=== PATIENT | female | born 2005 | race Caucasian/White ===

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

== ENCOUNTER 2023-06-18 13:50 | Emergency (ER) | payer OTHER, BC, SELFPAY ==
[2023-06-18 13:51] VITALS: BP 121/73; PULSE 86; RESP 16; TEMP 36.2; O2SAT 99; BMI 26.2
--- NOTE | 2023-06-18 14:12 | EDS_ITS ---
HPI <FANTA Murillo - Last Filed: 06/18/23 15:08> History of Present Illness Chief Complaint: Sore Throat Narrative Narrative: 18-year-old female woke up with a feeling that her tonsils were swollen. She does not have sore throat, fever or congestion. She was seen at urgent care and had a negative strep test. While in their waiting room she felt lightheaded and clammy like she was going to pass out so they recommended she come to the ED. She now feels back to normal. She states she has been very stressed and anxious due to a break-up recently and has not been eating or drinking much. Mom states she has a long history of anxiety and intermittent chest pains for years. PFSH <FANTA Murillo - Last Filed: 06/18/23 15:08> [facility] Medical History (Updated 06/18/23 @ 15:13 by Abby Avila RN) Anxiety Home Medications drospirenone 3 mg-ethinyl estradiol 0.03 mg tablet 1 tab PO DAILY 08/14/20 [History Last Taken Unknown] spironolactone 50 mg tablet 50 mg PO DAILY 08/14/20 [History Last Taken Unknown] Allergy/AdvReac Type Severity Reaction Status Date / Time No Known Allergies Allergy Verified 06/18/23 13:51 Social History Smoking Status: Never smoker ROS <FANTA Murillo - Last Filed: 06/18/23 15:08> ROS ED ROS Narrative Constitutional: Negative for fever, chills, malaise. ENT: Negative for ear pain, rhinorrhea. CVS: Negative for palpitations, syncope. Respiratory: Negative for shortness of breath, cough. GI: Negative for nausea, vomiting. Neuro: Negative for headache. EXAM <FANTA Murillo - Last Filed: 06/18/23 15:08> Physical Exam Narrative Exam Narrative: CONST: Patient sitting in no acute distress. EYES: Normal inspection. ENT: Symmetrically enlarged tonsils with no exudate and midline uvula, moist mucous membranes. No trismus or tongue elevation, sublingual space is soft, airway patent. Nares clear, normal TMs bilaterally. NECK: Normal inspection. Trachea midline, no lymphadenopathy or masses, no meningismus. RESP: No respiratory distress, CTAB. CVS: Regular rate and rhythm, no murmur, no gallop. SKIN: Color normal, no rash, warm, dry, intact. EXTREMITIES: Normal appearance, no pedal edema. NEURO: Oriented x4. PSYCH: Normal affect. Const Vital Signs: 06/18/23 13:51 Temperature 97.2 F L Temperature Source Temporal Pulse Rate 86 Respiratory Rate 16 Blood Pressure 121/73 H Blood Pressure Mean 89 Pulse Ox 99 Oxygen Delivery Method Room Air <Dr. Karthik Lutz MD - Last Filed: 06/18/23 15:54> Physical Exam Const Vital Signs: 06/18/23 13:51 Temperature 97.2 F L Temperature Source Temporal Pulse Rate 86 Respiratory Rate 16 Blood Pressure 121/73 H Blood Pressure Mean 89 Pulse Ox 99 Oxygen Delivery Method Room Air MDM <FANTA Murillo - Last Filed: 06/18/23 15:08> [facility] Narrative Medical decision making narrative: History gathered from: Mom and patient Patient woke up and feels like her tonsils are enlarged. She has no pain or sore throat. No other upper respiratory symptoms. She felt lightheaded/clammy in the urgent care waiting room which is why she presented today. Her symptoms had resolved. There was no syncope or associated chest pain or shortness of breath. It sounds like a vasovagal reaction. Here she is awake alert in no distress with good color. Vital signs stable. Tonsils are symmetrically enlarged but there is no exudate or signs of peritonsillar abscess. She is tolerating secretions appropriately. She already had a negative strep test at urgent care so I did not repeat this. I treated symptomatically with Decadron and discussed return precautions and she was discharged in stable condition. <Dr. Karthik Lutz MD - Last Filed: 06/18/23 15:54> [facility] Treatment and Re-Evaluation :: I have personally performed a face to face assessment of the patient and have reviewed the TANNER Note. I performed a substantive portion of the visit including all aspects of the following. My baez findings include: History: Patient presents with a couple issues. She went to urgent care about a sore throat she has had today. But no fevers chills or trouble swallowing. Strep was negative. While she was there she got flushed warm feeling and lightheaded. Denies actual syncope. No chest pain. She has had milder versions of this before. Her brother has a history of vasovagal syncope and has had extensive work-up. She feels back to normal now. She also has not eaten today. Exam: Patient awake alert no acute distress. HEENT does show slightly enlarged tonsils but there is no exudate. Voice is normal. Her heart is regular. No murmur. Good distal pulses. Lungs are clear. Saturations are normal. Medical Decision Making: I do not think any work-up for this episode of lightheadedness needs to be done. This sounds vasovagal. If it becomes recurrent she may need further evaluation. She will be treated with dexamethasone dose for the enlarged tonsils and symptoms. Discharge Plan Triage Chief Complaint: Sore Throat ED Midlevel Provider: Parisa Ruiz ED Provider: Karthik Lutz Dx/Rx/DC Orders Clinical Impression: Pharyngitis Instructions: ED Pharyngitis, Viral Prescriptions: No Action drospirenone-ethinyl estradiol 1 EACH tablet 1 tab PO DAILY spironolactone 50 MG tablet 50 mg PO DAILY Primary Care Provider: Sabine Pang Referrals: Sabine Pang, [Primary Care Provider] - Activity Restrictions/Additional Instructions: Continue to monitor symptoms and if they worsen please be reevaluated Disposition Disposition: Home, Self Care Discharge Date/Time: 06/18/23 15:30
[2023-06-18] MEDS: dexAMETHasone 10 MG/ML Vial 6 MG PO.IVFORM (14:58)
== END 2023-06-18 15:30 | disposition home or self-care (01) ==
PROVIDERS: Emergency Provider Emergency Medicine; PCP Pediatrics; Visit Provider Emergency Medicine
DX: J02.9 Acute pharyngitis, unspecified (principal); R55 Syncope and collapse; J35.1 Hypertrophy of tonsils; F41.9 Anxiety disorder, unspecified
CPT/HCPCS: 99282

== ENCOUNTER 2024-01-08 20:25 | Emergency (ER) | payer OTHER, BC, MEDICAID, SELFPAY ==
[2024-01-08 20:26] VITALS: BP 132/83; PULSE 91; RESP 16; TEMP 36.4; O2SAT 100; BMI 24.7
--- NOTE | 2024-01-08 20:54 | EDS_ITS ---
HPI History of Present Illness Chief Complaint: Chest Other Informant: patient Onset/Context/Timing Onset: Days (4) Context: Gradual Onset Timing: Intermittent (But constant today) Quality: Burning Location: Right lower ribs Worsened by: Sitting, standing Relieved by: Laying down Narrative Narrative: Patient presents with right rib pain that began 4 days ago. Patient states it has been intermittent but has been constant today. Patient describes her pain as burning. Patient states it is over the right lower rib area. Patient states it is worse with standing and sitting. Patient states it is better with laying down. Patient denies any shortness of breath or cough. Patient denies any nausea or vomiting. Patient denies any abdominal pain. Patient is approximately 21 weeks . [facility] Medical History (Updated 01/08/24 @ 22:[address] Morris Vu DO) Anxiety Home Medications drospirenone 3 mg-ethinyl estradiol 0.03 mg tablet 1 tab PO DAILY 08/14/20 [History Last Taken Unknown] spironolactone 50 mg tablet 50 mg PO DAILY 08/14/20 [History Last Taken Unknown] cephalexin 500 mg capsule 500 mg PO Q12 #14 CAPSULES 01/08/24 [Rx Last Taken Unknown] Allergy/AdvReac Type Severity Reaction Status Date / Time No Known Allergies Allergy Verified 01/08/24 20:40 Surgical History no surgical history no surgical history Social History Smoking Status: Never smoker ROS ROS ED Constitutional Constitutional ED: Denies chills or fever(s) Eyes Eyes: Denies blurry vision or change in vision ENT ENT ED: Denies rhinorrhea or sore throat Cardiovascular Cardiovascular: Reports chest pain; Denies palpitations Respiratory/Chest Respiratory/Chest: Denies cough or dyspnea Gastrointestinal Gastrointestinal: Denies nausea or vomiting Genitourinary Genitourinary ED: Denies dysuria or hematuria Musculoskeletal Musculoskeletal: Reports back pain; Denies neck pain Integumentary Denies abscess or rash Neurologic Neurologic: Denies headache(s) or weakness Allergic/Immunologic Allergic/Immunologic ED: Denies mouth swelling or urticaria EXAM Physical Exam Const Vital Signs: 01/08/24 20:26 01/08/24 21:17 Temperature 97.5 F L Temperature Source Temporal Pulse Rate 91 71 Respiratory Rate 16 14 Blood Pressure 132/83 H 129/73 H Blood Pressure Mean 99 91 Pulse Ox 100 98 Oxygen Delivery Method Room Air Room Air Positive well nourished and well developed General Appearance ED: well developed and NAD HEENT Reports moist mucous membranes Neck supple and no JVD Chest Wall Chest Narrative: There is mild reproducible tenderness over the right seventh, eighth, and ninth rib areas. There is no bony crepitance or step-off. There is no subcutaneous emphysema noted. Resp normal respiratory effort and clear to auscultation bilaterally Cardio regular rate and regular rhythm GI non-tender and non-distended Palpation: soft Neuro oriented x3, CN's II-XII intact bilaterally and no sensory deficits noted Sensorium / Orientation: alert Motor Exam: strength 5/5 throughout Psych mental status grossly normal MDM MDM MDM Narrative Medical decision making narrative: Differential diagnosis includes pneumonia, pleurisy, costochondritis, and preeclampsia. Chest x-ray will be obtained to assess for pneumonia and pneumothorax. CBC will be obtained to assess for leukocytosis and anemia. Comprehensive metabolic profile will be obtained to assess for hepatic function, renal function, and electrolyte abnormalities. Quantitative hCG will be obtained to assess for status. Lab Data Attestation: I reviewed the patient's lab results. Lab results narrative: CBC was reviewed. There is a mild anemia with a hemoglobin of 8.9 and hematocrit 26.2. Comprehensive metabolic profile was reviewed and was essentially within normal limits. Urinalysis was reviewed. Leukocyte esterase was 500 with 10-25 white blood cells. [place] [id number]. Labs: Laboratory Results - last 24 hr 01/08/24 01/08/24 21:30 21:35 WBC 8.4 RBC 2.93 L Hgb 8.9 L Hct 26.2 L MCV 89.4 MCH 30.4 MCHC 34.0 RDW Std Deviation 42.8 RDW Coeff of Sergio 13.1 Plt Count 242 MPV 10.8 Immature Gran % (Auto) 0.400 Neut % (Auto) 59.9 Lymph % (Auto) 26.1 [place] % (Auto) 9.1 Eos % (Auto) 4.1 Baso % (Auto) 0.4 Absolute Neuts (auto) 5.0 Absolute Lymphs (auto) 2.19 Nucleated RBC % 0 Sodium 139 Potassium 3.4 L Chloride 110 H Carbon Dioxide 23.0 Anion Gap 6 BUN 7 Creatinine 0.47 L Estim Creat Clear Calc 163.07 Est GFR (MDRD) Af Amer 213 Est GFR (MDRD) Non-Af 176 BUN/Creatinine Ratio 14.8 Glucose 87 Calcium 8.0 L Total Bilirubin 0.20 AST 10 L ALT 8 L Alkaline Phosphatase 45 Total Protein 5.8 L Albumin 2.8 L Globulin 3.0 Albumin/Globulin Ratio 0.9 HCG, Quant 72821 H Urine Color Yellow Urine Clarity Cloudy Urine pH 7.0 Ur Specific [place] 1.015 Urine Protein Negative Urine Glucose (UA) Normal Urine Ketones Negative Urine Occult Blood Negative Urine Nitrite Negative Urine Bilirubin Negative Urine Urobilinogen Normal Ur Leukocyte Esterase 500 H Urine RBC 0 SEEN Urine WBC 10-25 SEEN Ur Squamous Epith Cells 0-5 SEEN Amorphous Sediment 1+ PHOS Urine Bacteria RARE Urine Mucus 0 SEEN Radiography Chest X-Ray - ED: 2 View, Read by ED Physician, Read by Radiologist and No Acute Disease Diagnostic Testing: Clinical Impression(s) from Imaging Studies Chest X-Ray 01/08/24 21:43 IMPRESSION: 1. No evidence of acute cardiopulmonary process Electronically Signed: Don Cardenas MD at 22:05 EDT , PA and lateral chest x-ray was obtained. There are 2 views. On my independent interpretation, lung root are clear. There is normal cardiac silhouette. Bony thorax is normal. There is no acute process noted. Radiologist also interpreted the x-ray and agrees. Treatment and Re-Evaluation :: Patient was advised of her findings. Urine culture was ordered. Patient was given a dose of Keflex here. Patient was given a prescription for Keflex. Patient was instructed to follow-up with her primary care physician and [employer] in 5 to 7 days. Patient understood and was agreeable with the plan. All questions were answered. Discharge Plan Triage Chief Complaint: Chest Other ED Provider: Morris Vu Dx/Rx/DC Orders Clinical Impression: Urinary tract infection, Instructions: ED , ED Cystitis Female Adult Prescriptions: New cephalexin [cephalexin] 500 mg capsule 500 mg PO Q12 Qty: 14 0RF No Action drospirenone-ethinyl estradiol 1 EACH tablet 1 tab PO DAILY spironolactone 50 MG tablet 50 mg PO DAILY Primary Care Provider: Sabine Pang Referrals: Sabine Pang DO [Primary Care Provider] - 5-[address] Gómez MD [Med Staff - Active Staff] - 3-5 Days Disposition Disposition: Home, Self Care
[2024-01-08 21:17] VITALS: BP 129/73; PULSE 71; RESP 14; O2SAT 98
[2024-01-08 21:42] LABS: Mucous, Urine 0 SEEN /hpf (<or=2+); Red Blood Cells-Urine 0 SEEN /hpf (0-5)
--- NOTE | 2024-01-08 21:43 | RAD_ITS ---
INDICATION: Pain -- Shield abdomen EXAMINATION/TECHNIQUE: X-RAY - XR Chest 2 Views COMPARISON: No previous relevant examinations available for comparison.. FINDINGS: LIFE-SUPPORT AND LINES: 1. None HEART AND VESSELS: The cardiac silhouette, pulmonary vasculature have normal appearance. No evidence of congestive failure. LUNGS AND PLEURAL SPACES: Lungs are clear. No focal infiltrate, consolidation or effusions. No evidence of pneumothorax. No pulmonary mass is noted. MEDIASTINUM AND HILAR REGIONS: No masses adenopathy noted. No areas of calcification. Visualized upper airway is normal in position. BONY ELEMENTS: No acute bony changes noted. RAD/Chest PA and Lateral IMPRESSION: 1. No evidence of acute cardiopulmonary process Electronically Signed: Don Cardenas MD at 22:05 EDT ,
[2024-01-08 21:45] LABS: Absolute Lymphocyte Count 2.19 X10^3/uL (0.83-4.51); Basophil# 0.03 X10^3/uL; Basophil% 0.4 % (0-1); Eosinophil# 0.34 X10^3/uL; Eosinophils% 4.1 % (0-5); Hematocrit 26.2 % (37-47); Hemoglobin 8.9 g/dL (12.0-15.0); Lymphocyte # 2.19 X10^3/ul (0.83-4.51); Lymphocyte % 26.1 % (19-41); Mean Corpuscular Hgb 30.4 pg (27.0-32.0); Mean Corpuscular Volume 89.4 fL (81-99); Mean Platelet Vol. 10.8 fl (6.2-12.0); Monocyte# 0.76 X10^3/uL; Monocyte% 9.1 % (0-10); NRBC Flagged by Analyzer 0 % (0-5); Neutrophil # 5.03 X10^3/uL (2.7-7.7); Neutrophil % 59.9 % (47-70); Platelet Count 242 K/mm3 (150-450); RBC Distribution Width CV 13.1 % (11.6-14.6); RBC Distribution Width SD 42.8 fl (35.1-43.9); Red Blood Count 2.93 M/mm3 (4.2-5.4); White Blood Count 8.4 K/mm3 (4.4-11.0)
[2024-01-08 21:46] LABS: Color, Urine Yellow (Yellow); Glucose, Dipstick Normal (Normal); Ketone-Dipstick Negative (Negative); Leukocyte Esterase-Dipstick 500 /ul (Negative); Nitrite-Dipstick Negative (Negative); Occult Blood-Urine Negative /ul (Negative); Protein-Dipstick Negative (Negative); Specific Gravity, Urine 1.015 (1.002-1.030); Urine Bilirubin Dipstick Negative (Negative); Urine Clarity Cloudy (Clear); Urine Urobilinogen Normal (Normal)
[2024-01-08] MEDS: Acetaminophen 500 MG Tablet 1000 MG PO (21:56)
[2024-01-08 22:00] LABS: Amorphous Sediment 1+ PHOS; Bacteria RARE /hpf (None Seen); Squamous Epithelial Cells - UA 0-5 SEEN /hpf (5-10); White Blood Cells 10-25 SEEN /hpf (0-5)
[2024-01-08 22:06] LABS: ALB/GLOB Ratio 0.9 RATIO (0.9-2.4); AST(SGOT) 10 U/L (15-37); Alanine Aminotransfer ALT/SGPT 8 U/L (13-56); Albumin, Serum 2.8 g/dL (3.2-5.0); Alkaline Phosphatase 45 U/L (45-117); Anion Gap 6 (5-15); BUN 7 mg/dL (7-18); BUN/Creat Ratio 14.8 RATIO (10-20); Chloride 110 mmol/L (98-107); Creatinine, Serum 0.47 mg/dL (0.55-1.02); EST Glomerular Filtration Rate 176 mL/min (>60); Est Glom Filt Rate - Afr Amer 213 mL/min (>60); Estimated Creatinine Clearance 163.07 ml/min; Glucose 87 mg/dL (74-106); Potassium 3.4 mmol/L (3.5-5.1); Protein, Total 5.8 g/dL (6.4-8.2); Sodium Level 139 mmol/L (136-145)
[2024-01-08 22:25] LABS: hCG Titer Quant., Serum 15032 mIU/mL (1-3)
[2024-01-08 23:15] VITALS: BP 108/61; RESP 18; TEMP 36.8
[2024-01-08] MEDS: Cephalexin 500 MG Capsule PO (23:17)
== END 2024-01-08 23:18 | disposition home or self-care (01) ==
PROVIDERS: Emergency Provider Emergency Medicine; PCP Pediatrics; Visit Provider Emergency Medicine
DX: O23.42 Unspecified infection of urinary tract in pregnancy, second trimester (principal); R07.81 Pleurodynia; Z3A.21 21 weeks gestation of pregnancy
CPT/HCPCS: 71046; 80053; 81001; 84702; 85025; 87086; 99283; A4216

== ENCOUNTER 2024-05-16 21:50 | Inpatient (IN) | payer OTHER, BC, MEDICAID, SELFPAY ==
[2024-05-16] VITALS (37 sets, daily range): BP systolic 118–140; BP diastolic 65–87; PULSE 86–113; RESP 16; TEMP 37.1–37.2; O2SAT 92–100; BMI 28.9
[2024-05-16] MEDS: Lactated Ringers 1,000 ML 999 ML IV (22:10)
[2024-05-16 22:24] LABS: Absolute Lymphocyte Count 1.87 X10^3/uL (0.83-4.51); Absolute Neutrophil Count 13.4 X10^3/uL (2.0-7.7); Basophil# 0.05 X10^3/uL; Basophil% 0.3 % (0-1); Eosinophils% 0.6 % (0-5); Hematocrit 34.6 % (37-47); Hemoglobin 11.5 g/dL (12.0-15.0); Lymphocyte # 1.87 X10^3/ul (0.83-4.51); Lymphocyte % 11.3 % (19-41); Mean Corp Hgb Conc 33.2 g/dL (32-36); Mean Corpuscular Volume 90.3 fL (81-99); Mean Platelet Vol. 11.5 fl (6.2-12.0); Monocyte# 0.96 X10^3/uL; Monocyte% 5.8 % (0-10); NRBC Flagged by Analyzer 0 % (0-5); Neutrophil # 13.43 X10^3/uL (2.7-7.7); Platelet Count 241 K/mm3 (150-450); RBC Distribution Width CV 14.6 % (11.6-14.6); RBC Distribution Width SD 49.1 fl (35.1-43.9); Red Blood Count 3.83 M/mm3 (4.2-5.4); White Blood Count 16.6 K/mm3 (4.4-11.0)
[2024-05-16 23:07] LABS: Syphilis Antibodies Non-reactive
[2024-05-16] MEDS: fentaNYL-bupivacaine (epidural) 100 ML BAG EPIDURAL (23:20)
[2024-05-16] MEDS: Lactated Ringers 1,000 ML 200 ML IV (23:22)
[2024-05-17] VITALS (68 sets, daily range): BP systolic 100–142; BP diastolic 53–75; PULSE 61–117; RESP 14–18; TEMP 36.1–37.6; O2SAT 81–100
[2024-05-17] MEDS: Acetaminophen 500 MG Tablet PO (01:23)
[2024-05-17] MEDS: Lactated Ringers 1,000 ML 200 ML IV ×2 (03:35→08:57)
[2024-05-17] MEDS: Oxytocin 15 Units/NS 250ml 15 UNITS/250 ML IV.SOLN 2 UNITS IV (04:26)
[2024-05-17] MEDS: fentaNYL-bupivacaine (epidural) 100 ML BAG EPIDURAL ×2 (05:18→10:04)
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
[2024-05-17] MEDS: Methylergonovine 0.2 MG/ML Ampul IM (13:28)
[2024-05-17] MEDS: miSOPROStol 200 MCG Tablet 1000 MCG RC (13:34)
[2024-05-17] MEDS: Oxytocin 15 Units/NS 250ml 15 UNITS/250 ML IV.SOLN 83 UNITS IV (13:44)
--- NOTE | 2024-05-17 13:48 | EX.PCM.OBRPT ---
Assessment & Plan (1) Uterine atony: (2) Vaginal delivery: Maternal Data Information LAM Calculator Estimated Delivery Date Method Current WG Current Estimate 05/19/24 Manual 39w 5d 39w4d upon arrival in labor Vaginal Delivery Maternal Presentation Maternal Presentation: Active Labor Operative Information Date of Procedure: 05/17/24 Pre-Operative Diagnosis: Active Labor at Term Post-Operative Diagnosis: , Uterine Atony Surgery / Procedure Performed: Spontaneous Vaginal Delivery Type of Anesthesia: Epidural Estimated Blood Loss: 600ml Time of Delivery: 13:22 Findings Description of Procedure: Progressed to complete with urge to push. Epidural for pain management. of viable male infant over intact perineum. APGARS 8,9 respectively. head delivered with body immediately forthcoming. Placed on maternal abdomen, strong cry. Mouth and nares suctioned for secretions. Pitocin started for active 3rd stage management. Cord doubly clamped and cut by mother pulsations ceased, delayed cord clamping. Placenta delivered intact via rubin, 3 vessel cord intact. Perineum inspected and intact. Fundus with uterine atony and large gush of fluid with clots. Methergine IM given with bimanual uterine compression. Continued trickle of blood and Cytotec 1000mcg per rectum given. Uterus firm and hemostasis achieved. EBL 600ml. Mom and baby stable, planning to breastfeed. Family bonding well. notified of delivery. Presentation: Vertex and JUANITA Amniotic Membrane Rupture Type: Artificial Amniotic Fluid Description: Clear Placental Delivery Description: Spontaneous Placenta Disposition: [facility] Cord Vessel Description: 3 Vessels Cord Entanglement: Around neck x 1, loose Nuchal Cord Compression: Without compression A Gender: Male Delayed Cord Clamping: Yes Post Vaginal Delivery Medications Given After Delivery: IV Pitocin, IM Methergin and - (1000mcg Cytotec per rectum) Episiotomy Description: None Laceration: None Complication Complications: - (uterine atony)
[2024-05-17] MEDS: Acetaminophen 500 MG Tablet 1000 MG PO (18:31)
[2024-05-17] MEDS: Ibuprofen 600 MG Tablet PO (19:34)
[2024-05-18] VITALS (11 sets, daily range): BP systolic 104–118; BP diastolic 51–60; PULSE 67–196; RESP 16; TEMP 36.1–36.6; O2SAT 80–99
[2024-05-18] MEDS: Acetaminophen 500 MG Tablet 1000 MG PO (00:50)
--- NOTE | 2024-05-18 02:58 | PCM.PN.OB ---
Subjective Subjective Doing well per patient and nursing staff. Ambulating and taking PO without difficulty. Voiding and passing flatus. Pain controlled. , services for assistance. Denies headache, visual changes, chest pain, shortness of breath, leg pain or increased bleeding. Lochia normal. Objective Data Objective Data Vital Signs: Vital Signs Temp Pulse Resp BP Pulse Ox O2 Del Method 97.6 F L 78 16 107/53 L 98 Room Air 05/18/24 00:46 05/18/24 00:46 05/18/24 00:46 05/18/24 00:46 05/18/24 00:46 05/18/24 00:46 Oxygen Delivery Method Room Air Weight: 158 lb 1.143 oz Body Mass Index (BMI) 28.9 Intake & Output: Intake and Output for Last 24 Hours 05/16/24 05/17/24 05/18/24 23:59 23:59 23:59 Intake Total 4226.66 / 4226.66 Output Total 3820 / 3820 Balance 406.66 / 406.66 Lab / Micro Data 05/16/24 22:10 Physical Exam Const alert and oriented x3 General Appearance: cooperative Orientation / Consciousness: awake, oriented to person, oriented to place and oriented to time Exam Limitations: no limitations HEENT normocephalic Head and Scalp: normal to inspection, normocephalic and atraumatic Face and Sinus: normal facial exam Eyes General Eye: normal appearance of both eyes Neck full ROM Chest Chest: symmetrical chest wall rise Resp normal respiratory effort and normal air movement Auscultation: clear to auscultation bilaterally Cardio regular rate, regular rhythm, S1 normal heart sound, S2 normal heart sound, no murmurs, no rub, no gallops and no clicks GI normal to inspection, nondistended, normoactive bowel sounds and non-tender appearance of the vagina normal Bladder / Kidney Exam: no CVA tenderness Back/Spine normal ROM Extremity normal to inspection and full ROM Skin no rashes or lesions noted Neuro oriented x3, CN's II-XII intact bilaterally and moves all extremities Sensorium / Orientation: awake, alert and oriented to person Motor Exam: clonus absent Deep Tendon Reflexes: Rt Patellar (L4): 2+ and Lt Patellar (L4): 2+ Assessment & Plan (1) Vaginal delivery: (2) Uterine atony: PLAN: Plan 1) Routine PPD#1 2) Vitals stable 3) I&O 4) Pain management 5) services PRN 6) Planning D/C home tomorrow
[2024-05-18 05:20] LABS: Absolute Lymphocyte Count 2.23 X10^3/uL (0.83-4.51); Absolute Neutrophil Count 10.3 X10^3/uL (2.0-7.7); Basophil# 0.04 X10^3/uL; Basophil% 0.3 % (0-1); Eosinophil# 0.14 X10^3/uL; Hematocrit 27.8 % (37-47); Hemoglobin 9.2 g/dL (12.0-15.0); Lymphocyte # 2.23 X10^3/ul (0.83-4.51); Lymphocyte % 15.9 % (19-41); Mean Corp Hgb Conc 33.1 g/dL (32-36); Mean Corpuscular Hgb 29.8 pg (27.0-32.0); Mean Platelet Vol. 11.6 fl (6.2-12.0); Monocyte% 8.6 % (0-10); NRBC Flagged by Analyzer 0 % (0-5); Neutrophil # 10.27 X10^3/uL (2.7-7.7); Neutrophil % 73.3 % (47-70); Platelet Count 183 K/mm3 (150-450); RBC Distribution Width CV 14.8 % (11.6-14.6); RBC Distribution Width SD 48.2 fl (35.1-43.9); Red Blood Count 3.09 M/mm3 (4.2-5.4)
--- NOTE | 2024-05-18 11:44 | NURSING ---
Called Rosalia Patiño to update on CBC results and pt planning on going home. Gave CBC results and per Rosalia Patiño new calculated EBL is to be 1000 ml. Plan is to start PO 325 mg Iron daily, unless becomes more symptomatic then we can give iron transfusion.
[2024-05-18] MEDS: FLU VACC 2024-25(6MOS UP)/PF 45 MCG/0.5 ML SYRINGE IM (12:21)
[2024-05-18] MEDS: Ibuprofen 600 MG Tablet PO ×2 (12:21→20:54)
[2024-05-18] MEDS: MEASLES,MUMPS,RUBELLA VACC/PF 0.5 ML SC (12:22)
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
[2024-05-18] MEDS: Iron Sucrose Complex 200 MG in 0.9% Normal Saline (100mL Bag) 100 ML 220 MG IV (14:08)
[2024-05-18] MEDS: 0.9% Saline Lock 10 ML Syringe IV (14:09)
[2024-05-19 03:24] VITALS: BP 105/53; PULSE 63; RESP 16; TEMP 36.5
[2024-05-19 06:49] LABS: Absolute Lymphocyte Count 1.75 X10^3/uL (0.83-4.51); Absolute Neutrophil Count 5.9 X10^3/uL (2.0-7.7); Basophil# 0.05 X10^3/uL; Basophil% 0.6 % (0-1); Eosinophil# 0.19 X10^3/uL; Eosinophils% 2.2 % (0-5); Hematocrit 26.5 % (37-47); Hemoglobin 8.9 g/dL (12.0-15.0); Lymphocyte # 1.75 X10^3/ul (0.83-4.51); Lymphocyte % 20.3 % (19-41); Mean Corp Hgb Conc 33.6 g/dL (32-36); Mean Corpuscular Hgb 30.5 pg (27.0-32.0); Mean Corpuscular Volume 90.8 fL (81-99); Mean Platelet Vol. 11.1 fl (6.2-12.0); Monocyte# 0.68 X10^3/uL; Monocyte% 7.9 % (0-10); NRBC Flagged by Analyzer 0 % (0-5); Neutrophil # 5.88 X10^3/uL (2.7-7.7); Neutrophil % 68.2 % (47-70); Platelet Count 202 K/mm3 (150-450); RBC Distribution Width CV 14.8 % (11.6-14.6); RBC Distribution Width SD 49.2 fl (35.1-43.9); Red Blood Count 2.92 M/mm3 (4.2-5.4); White Blood Count 8.6 K/mm3 (4.4-11.0)
--- NOTE | 2024-05-19 08:44 | PCM.PN.OB ---
Subjective Subjective Pain well-controlled. Average lochia. Did pass a clot early this morning. Bleeding is average since then. Denies any lightheadedness. Objective Data Objective Data Vital Signs: Vital Signs Temp Pulse Resp BP Pulse Ox O2 Del Method 97.7 F L 63 16 105/53 L 98 Room Air 05/19/24 03:24 05/19/24 03:24 05/19/24 03:24 05/19/24 03:24 05/18/24 17:50 05/19/24 03:24 Oxygen Delivery Method Room Air Weight: 71.7 kg Body Mass Index (BMI) 28.9 Intake & Output: Intake and Output for Last 24 Hours 05/17/24 05/18/24 05/19/24 23:59 23:59 23:59 Intake Total 4226.66 / 4226.66 110 / 110 Output Total 4220 / 4220 Balance 6.66 / 6.66 110 / 110 Lab / Micro Data 05/19/24 06:40 Labs: Laboratory Results - last 24 hr 05/19/24 06:40: WBC 8.6, RBC 2.92 L, Hgb 8.9 L, Hct 26.5 L, MCV 90.8, MCH 30.5, MCHC 33.6, RDW Std Deviation 49.2 H, RDW Coeff of Sergio 14.8 H, Plt Count 202, MPV 11.1, Immature Gran % (Auto) 0.800, Neut % (Auto) 68.2, Lymph % (Auto) 20.3, Winkler % (Auto) 7.9, Eos % (Auto) 2.2, Baso % (Auto) 0.6, Absolute Neuts (auto) 5.9, Absolute Lymphs (auto) 1.75, Nucleated RBC % 0 Physical Exam Const alert and no apparent distress Narrative: Fundus firm, below umbilicus. Assessment & Plan (1) Vaginal delivery: PLAN: Mild acute blood loss anemia appropriate for blood loss from delivery. Passed a clot this morning but bleeding is average since. Continue with routine care. Okay to discharge home today continue vitamins and follow-up in 1 in 6 weeks or as needed. (2) Uterine atony:
--- NOTE | 2024-05-19 08:45 | PCM.DC.SUM ---
Providers Date of Admission: 05/16/24 Primary Care Physician: Dr. Sabine Pang DO Reason For Visit: R/O LABOR Diagnosis Discharge Diagnosis (1) Vaginal delivery: Status: Acute Code(s): O80 - Encounter for full-term uncomplicated delivery Plan: Mild acute blood loss anemia appropriate for blood loss from delivery. Passed a clot this morning but bleeding is average since. Continue with routine care. Okay to discharge home today continue vitamins and follow-up in 1 in 6 weeks or as needed. (2) Uterine atony: Status: Acute Code(s): O62.2 - Other uterine inertia Medications at Discharge Home Medications aspirin 81 mg capsule 162 mg PO DAILY 05/16/24 vit no.95-ferrous fumarate 28 mg-folic acid 800 mcg tablet () 1 tab PO DAILY 05/16/24 valacyclovir 500 mg tablet (Valtrex) 500 mg PO BID hsv 05/16/24 Hospital Course Operations None Procedures None Summary of Care Provided Minutes Spent on Discharge: 22 Hospital Course: Patient was admitted on 05/17/2024 in active labor. She had spontaneous vaginal delivery on 05/17/2024 at 38-4/7 weeks. She had a single liveborn . She had mild atony which responded to medical management and fundal massage. She had mild acute blood loss anemia and received IV iron x 1 on 05/18/2024. By 05/19/2024 she was ready for discharge home. was breast-feeding and doing well. She was discharged home with routine instructions and follow-up in the office. Weight / BMI Weight Weight: 71.7 kg Body Mass Index (BMI) 28.9 ABG / Lab / Microbiology Data 05/19/24 06:40 Laboratory: Laboratory Results - last 24 hr 05/19/24 06:40: WBC 8.6, RBC 2.92 L, Hgb 8.9 L, Hct 26.5 L, MCV 90.8, MCH 30.5, MCHC 33.6, RDW Std Deviation 49.2 H, RDW Coeff of Sergio 14.8 H, Plt Count 202, MPV 11.1, Immature Gran % (Auto) 0.800, Neut % (Auto) 68.2, Lymph % (Auto) 20.3, Villalba % (Auto) 7.9, Eos % (Auto) 2.2, Baso % (Auto) 0.6, Absolute Neuts (auto) 5.9, Absolute Lymphs (auto) 1.75, Nucleated RBC % 0 D/C Instructions May resume sexual activity in: 6 weeks Please Follow Up With: Bernarda Patiño CNM When: Follow up with our office in 1 and 6 weeks or as needed. [phone] call or send a [employer] message Meaningful Use Info Meaningful Use Meaningful Use Diagnoses (Choose all that apply): None applicable Ischemic Stroke Statin Dosing Therapy Reference: STATIN DOSE THERAPY REFERENCE: * Patients > 75 years receive moderate or high dose statin therapy. * Patients 75 years or YOUNGER should receive HIGH intensity statin dose unless contraindicated. You will be required to document reason for non-treatment if statin daily dose does not meet guidelines. HIGH DOSE STATIN THERAPY DAILY Atorvastatin > than or = to 40 mg Rosuvastatin > than or = to 20 mg Amlodipine + Atorvastatin > than or = to 2.5/40 mg Ezetimibe + Simvastatin 10/80 mg Simvastatin 80mg Discharge Plan Admission Admit Date/Time: 05/16/24 21:50 Attending Provider: Bernarda Patiño Primary Care Provider: Sabine Pang Discharge Orders/Prescriptions Prescriptions: No Action aspirin 81 mg capsule 162 mg PO DAILY PNV cmb#95-ferrous fumarate-FA [] 28 mg iron- 800 mcg tablet 1 tab PO DAILY valacyclovir [Valtrex] 500 mg tablet 500 mg PO BID Referrals / Follow Up: Sabine Pang DO [Primary Care Provider] -
[2024-05-19 08:52] VITALS: BP 108/72; PULSE 90
[2024-05-19 09:19] VITALS: BP 108/72; PULSE 90; RESP 16; TEMP 36.7; O2SAT 99
[2024-05-19 12:57] VITALS: BP 121/75; PULSE 82
[2024-05-19 12:58] VITALS: BP 121/75; PULSE 82; RESP 16; TEMP 36.9; O2SAT 99
[2024-05-19 12:59] VITALS: PULSE 84; O2SAT 99
== END 2024-05-19 13:35 | disposition home or self-care (01) | DRG 806 ==
LOC: WPOUT 21:52 → WP 21:52
PROVIDERS: Admitting Provider Advanced Practice Midwife; PCP Pediatrics; Visit Provider Advanced Practice Midwife
DX: O98.52 Other viral diseases complicating childbirth (principal); Z37.0 Single live birth; D62 Acute posthemorrhagic anemia; O90.81 Anemia of the puerperium; B00.9 Herpesviral infection, unspecified; O62.2 Other uterine inertia; Z3A.38 38 weeks gestation of pregnancy; Z79.82 Long term (current) use of aspirin; Z79.899 Other long term (current) drug therapy; Z87.891 Personal history of nicotine dependence
CPT/HCPCS: 59025; 59050; 85025; 86780; 86850; 86900; 86901; 90656; 99221; J1756; J7120; A4216; G0378

== ENCOUNTER → 2024-10-23 | Outpatient (CLI) | payer BC, OTHER, MEDICAID, SELFPAY ==
[2024-10-23 16:32] LABS: Absolute Lymphocyte Count 1.93 X10^3/uL (0.83-4.51); Absolute Neutrophil Count 2.3 X10^3/uL (2.0-7.7); Basophil# 0.08 X10^3/uL; Basophil% 1.6 % (0-1); Eosinophil# 0.28 X10^3/uL; Eosinophils% 5.6 % (0-5); Hematocrit 33.9 % (37-47); Hemoglobin 11.5 g/dL (12.0-15.0); Lymphocyte # 1.93 X10^3/ul (0.83-4.51); Lymphocyte % 38.8 % (19-41); Mean Corp Hgb Conc 33.9 g/dL (32-36); Mean Corpuscular Hgb 30.2 pg (27.0-32.0); Mean Platelet Vol. 11.2 fl (6.2-12.0); NRBC Flagged by Analyzer 0 % (0-5); Neutrophil # 2.27 X10^3/uL (2.7-7.7); Neutrophil % 45.8 % (47-70); Platelet Count 254 K/mm3 (150-450); RBC Distribution Width CV 12.7 % (11.6-14.6); RBC Distribution Width SD 41.1 fl (35.1-43.9); Red Blood Count 3.81 M/mm3 (4.2-5.4)
[2024-10-23 16:46] LABS: ALB/GLOB Ratio 1.4 RATIO (0.9-2.4); AST(SGOT) 16 U/L (15-37); Alanine Aminotransfer ALT/SGPT 18 U/L (13-56); Albumin, Serum 4.2 g/dL (3.2-5.0); Alkaline Phosphatase 83 U/L (45-117); Anion Gap 5 (5-15); BUN 15 mg/dL (7-18); BUN/Creat Ratio 20.9 RATIO (10-20); Calcium,Total 8.8 mg/dL (8.5-10.1); Chloride 108 mmol/L (98-107); Creatinine, Serum 0.72 mg/dL (0.55-1.02); EST Glomerular Filtration Rate 109 mL/min (>60); Est Glom Filt Rate - Afr Amer 131 mL/min (>60); Globulin 2.9 g/dL (2.2-4.2); Glucose 71 mg/dL (74-106); Iron 101 ug/dL (50-170); Magnesium 2.1 mg/dL (1.6-2.6); Protein, Total 7.1 g/dL (6.4-8.2); Sodium Level 140 mmol/L (136-145)
== END | disposition home or self-care (01) ==
LOC: BIMLAB 14:51
PROVIDERS: PCP Internal Medicine; Referring Provider Physician Assistant; Visit Provider Physician Assistant
DX: R00.2 Palpitations (principal)
CPT/HCPCS: 36415; 80053; 83540; 83735; 85025

== ENCOUNTER → 2024-11-03 | Outpatient (CLI) | payer BC, OTHER, MEDICAID, SELFPAY | END | disposition home or self-care (01) | LOC: PSN 07:14 | PROVIDERS: PCP Internal Medicine; Referring Provider Physician Assistant; Visit Provider Physician Assistant | DX: R00.2 Palpitations (principal) | CPT/HCPCS: 93225; 93226 ==

== ENCOUNTER 2025-01-29 19:59 | Emergency (ER) | payer BC, OTHER, MEDICAID, SELFPAY ==
[2025-01-29 20:00] VITALS: BP 125/69; PULSE 104; RESP 15; TEMP 36.2; O2SAT 100; BMI 23.1
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
[2025-01-29 22:03] VITALS: BP 113/73; PULSE 100; RESP 14; TEMP 37.1; O2SAT 98
== END 2025-01-29 22:08 | disposition home or self-care (01) ==
PROVIDERS: Emergency Provider Emergency Medicine; PCP Internal Medicine; Visit Provider Emergency Medicine
DX: S16.1XXA Strain of muscle, fascia and tendon at neck level, initial encounter (principal); S09.90XA Unspecified injury of head, initial encounter; S90.01XA Contusion of right ankle, initial encounter; V49.40XA Driver injured in collision with unspecified motor vehicles in traffic accident, initial encounter; Y92.410 Unspecified street and highway as the place of occurrence of the external cause; Z87.891 Personal history of nicotine dependence
CPT/HCPCS: 70450; 72125; 73610; 99284

== ENCOUNTER → 2025-04-16 | Outpatient (CLI) | payer BC, OTHER, MEDICAID, SELFPAY | END | disposition home or self-care (01) | PROVIDERS: PCP Internal Medicine; Visit Provider Physician Assistant Surgical | DX: N89.8 Other specified noninflammatory disorders of vagina (principal); R82.90 Unspecified abnormal findings in urine | CPT/HCPCS: 87086 ==

== ENCOUNTER 2025-08-02 18:03 | Emergency (ER) | payer OTHER, BC, MEDICAID, SELFPAY ==
[2025-08-02 18:03] VITALS: BP 147/81; PULSE 82; RESP 14; TEMP 36.1; O2SAT 98; BMI 26.9
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
[2025-08-02] MEDS: Tetracaine 0.5% Ophthalmic Bottle 1 DRP OPHTHALMIC (18:34)
[2025-08-02] MEDS: Erythromycin Base 1 OPTH.TUBE 1 APPLIC RIGHT EYE (18:34)
--- OUTSIDE RECORDS SUMMARY | 2025-08-02 18:43 | XMS RPT_ITS | CCD ---
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 soft tissues: Unremarkable. IMPRESSION IMPRESSION: No acute radiographic abnormality. Beater Tender: MALENA Transcribe Date/Time: Aug 01 2023 2:43P Dictated by : JO TRUJILLO MD This examination was interpreted and the report reviewed and electronically signed by: JO TRUJILLO MD on Aug 01 2023 2:47PM EST [facility] Radiology Study observation (narrative) [facility] XR Chest PA and LateralOrder ed By: [facility] Provider on 08-01-2023 [facility] STREP A MOLECULAR (POC)on Procedural Control Valid [facility] Strep A (POCT) Negative Negative [facility] STREP A MOLECULAR (POC)on Procedural Control Valid [facility] Strep A (POCT) Negative Negative [facility] Progress Noteon 12-22-2022 Senior [employer] Consultant Authentication Interface Message Text Patient ID: Hugo Tyson is a 17 y.o. female. Her chief complaint(s) include: Follow Up Visit (Has felt a difference, but not a drastic difference, still having panic attack/ breathing episodes at night) Assessment 1. Anxiety Plan Hugo was seen today for follow up visit. Diagnoses and associated orders for this visit: Anxiety - FLUoxetine (PROZAC) 20 MG capsule; Take 1 Capsule (20 mg) by mouth daily Return in about 1 month (around 01/21/2023) for anxiety med check. Hugo has noticed some improvement with the prozac 10 mg but is still having some anxiety symptoms. Will increase dose to 20 mg daily. To call if any side effects or concerns with the increased dose. Will follow up in 1 month. Can continue the hydroxyzine as needed for worse anxiety/panic attacks; does not need a refill of this today. Subjective HPI Comments: Noticing some improvement with the prozac. Taking at night, not missing doses. Had one episode recently where it felt hard to breathe and took the hydroxyzine and helped a lot. Having much less shortness of breath and chest pains since starting the prozac. Feels less anxious overall. Feeling better, more confident but not quite perfect yet, still some anxiety. No side effects. No depression concerns. No SI. She is unaccompanied. Primary Care Review of Systems Objective Vital Signs 12/22/22 1426 BP: 117/66 Pulse: 66 Temp: 37.1 C (98.8 F) TempSrc: Temporal Weight: 67.9 kg There is no height or weight on file to calculate BMI. Physical Exam Constitutional: She appears well. She is active. No distress. HENT: Head: Atraumatic. Nose: No nasal discharge. Mouth/Throat: Mucous membranes are moist. Oropharynx is clear. Cardiovascular: Normal rate and regular rhythm. Heart murmur not heard. Pulmonary/Chest: Effort normal and breath sounds normal. There is normal air entry. No respiratory distress. She has no wheezes. She has no rhonchi. She has no rales. Abdominal: Soft. There is no abdominal tenderness. Neurological: She is alert. Skin: Capillary refill takes less than 3 seconds. Skin is warm. Skin is not pale. Findings: No rash. Vitals reviewed: Blood pressure 117/66, pulse 66, temperature 37.1 C (98.8 F), temperature source Temporal, weight 67.9 kg. Normal [facility] Progress Noteon 11-15-2022 Senior [employer] Consultant Authentication Interface Message Text Patient ID: Hugo Tyson is a 17 y.o. female. Her chief complaint(s) include: Anxiety and Shortness of Breath Assessment 1. Anxiety 2. Panic attack Plan Hugo was seen today for anxiety and shortness of breath. Diagnoses and associated orders for this visit: Anxiety - FLUoxetine (PROZAC) 10 MG capsule; Take 1 Capsule (10 mg) by mouth daily - hydrOXYzine (VISTARIL) 25 MG capsule; Take 1 Capsule (25 mg) by mouth every 6 hours as needed for Other (anxiety) - AMB Referral To Community Mental [facility] Services; Future Panic attack - hydrOXYzine (VISTARIL) 25 MG capsule; Take 1 Capsule (25 mg) by mouth every 6 hours as needed for Other (anxiety) - AMB Referral To [facility] Services; Future Return in 1 month (on 12/16/2022) for anxiety med check. Shortness of breath appears to be secondary to anxiety/panic attacks. Has had normal CXR in the past few weeks. Will start prozac daily and vistaril as needed to help with anxiety. Will also start counseling- given referral. Discussed the possible risk of suicidal thinking and behavior in children and adolescents treated with antidepressants. Also discussed risk of behavioral activation, as well as physical complaints such as headache or upset stomach. Hugo expressed understanding and provided consent to begin treatment with medication. Discussed reasons to go to ED for shortness of breath. Subjective HPI Comments: Going to the [facility] for cosmotology. Feeling short of breath a lot recently. Feels like inhaler doesn't help when she has these symptoms. Thinks anxiety might be causing/worsening the shortness of breath. Sometimes getting panic attacks because she feels like she can't breathe. Has been happening for awhile. Happening randomly- most often at night when she is lying down in bed and thinking about things. Sitting up doesn't help. Has some stress lately. Stress starts then feels short of breath. Lasts 10-15 minutes. Will sometimes start coughing when it feels hard to breathe. Feels chest pressure sometimes with the anxiety- resolves when she is able to calm down. Happening sometimes during the day- sometimes while driving. Went to - CXR looked good, about 2 weeks ago. Brother with anxiety- not on meds. She is unaccompanied. Anxiety Months Duration: 3 months Characterized by: Anxiety and Panic Attacks Symptoms: feeling anxious Symptoms: no feeling depressed, no self-harm and no suicidal thoughts Associated Symptoms: decreased sleep (trouble falling asleep sometimes) Family History: anxiety (brother) Previous Treatments: None Current Treatments: None Shortness of Breath Review of Systems Respiratory: Positive for shortness of breath. Objective Vital Signs 11/15/22 1123 BP: 121/58 Pulse: 72 Temp: 37.1 C (98.8 F) TempSrc: Temporal Weight: 65.3 kg Height: 158.9 cm Body mass index is 25.86 kg/m . Physical Exam Constitutional: She appears well. She is active. No distress. HENT: Head: Atraumatic. Nose: No nasal discharge. Mouth/Throat: Mucous membranes are moist. No pharynx erythema. Cardiovascular: Normal rate and regular rhythm. Pulses are strong. Heart murmur not heard. Pulmonary/Chest: Effort normal and breath sounds normal. There is normal air entry. No respiratory distress. She has no wheezes. She has no rhonchi. She has no rales. Abdominal: Soft. There is no abdominal tenderness. Neurological: She is alert. Skin: Capillary refill takes less than 3 seconds. Skin is warm. Skin is not pale. Findings: No rash. Vitals reviewed: Blood pressure 121/58, pulse 72, temperature 37.1 C (98.8 F), temperature source Temporal, height 158.9 cm, weight 65.3 kg, last menstrual period 11/01/2022. [address] [facility] Influenza virus A and B RNA and SARS-CoV-2 (COVID-19) N gene panel KODI+probe (Resp)on 11-01-2022 FLUAV RNA KODI+probe Ql (Unsp spec) Not detected Not Detected [facility] FLUBV RNA KODI+probe Ql (Unsp spec) Not detected Not Detected [facility] SARS-CoV-2 (COVID-19) RNA KODI+probe Ql (Resp) Not detected See comment [facility] STREP A MOLECULAR (POC)on Procedural Control Valid [facility] Strep A (POCT) Negative Negative [facility] XR CHEST 2V FRONTAL/LATon [facility] XR Chest PA and Lateralon IMPRESSION: Normal chest. Beater Tender: MALENA Transcribe Date/Time: Oct 31 2022 3:24P Dictated by : APPLE HEATH MD This examination was interpreted and the report reviewed and electronically signed by: APPLE HEATH MD on Oct 31 2022 3:25PM [facility] DIVISION OF RADIOLOGY * * *Final Report* * * DATE OF EXAM: Oct 31 2022 3:20PM WOX 5291 - XR CHEST 2V FRONTAL/LAT / PROCEDURE REASON: Viral URI * * * * Physician Interpretation * * * * EXAMINATION: CHEST RADIOGRAPH (2 VIEW FRONTAL & LATERAL), 10/31/2022 CLINICAL HISTORY: Viral URI MQ: XC2_6 EXAM DATE/TIME: 10/31/2022 3:20 PM COMPARISON: No relevant prior studies available. RESULT: Lines, tubes, and devices: None. Lungs and pleura: The lungs are clear. No pleural effusion. No pneumothorax. Cardiomediastinal silhouette: Normal cardiomediastinal silhouette. Bones and soft tissues: Unremarkable. DIVISION OF RADIOLOGY Provider, [facility] - 10/31/2022 * * *Final Report* * * DATE OF EXAM: Oct 31 2022 3:20PM WOX 5291 - XR CHEST 2V FRONTAL/LAT / PROCEDURE REASON: Viral URI * * * * Physician Interpretation * * * * EXAMINATION: CHEST RADIOGRAPH (2 VIEW FRONTAL & LATERAL), 10/31/2022 CLINICAL HISTORY: Viral URI MQ: XC2_6 EXAM DATE/TIME: 10/31/2022 3:20 PM COMPARISON: No relevant prior studies available. RESULT: Lines, tubes, and devices: None. Lungs and pleura: The lungs are clear. No pleural effusion. No pneumothorax. Cardiomediastinal silhouette: Normal cardiomediastinal silhouette. Bones and soft tissues: Unremarkable. IMPRESSION IMPRESSION: Normal chest. Beater Tender: MALENA Transcribe Date/Time: Oct 31 2022 3:24P Dictated by : APPLE HEATH MD This examination was interpreted and the report reviewed and electronically signed by: APPLE HEATH MD on Oct 31 2022 3:25PM EST [facility] Radiology Study observation (narrative) [facility]avier [facility] XR Chest PA and LateralOrder ed By: [facility] Provider on 10-31-2022 [facility] Influenza virus A and B RNA and SARS-CoV-2 (COVID-19) N gene panel KODI+probe (Resp)on 08-30-2022 [facility] RNA KODI+probe Ql (Unsp spec) Negative Negative for Influenza A by RT-PCR [facility] FLUBV RNA KODI+probe Ql (Unsp spec) Negative Negative for Influenza B by RT-PCR [facility] SARS-CoV-2 (COVID-19) RNA KODI+probe Ql (Resp) SARS-CoV-2 (Agent of COVID-19) Not Detected by RT-PCR or equivalent method. Not Detected [facility] STREP A MOLECULAR (POC)on Procedural Control Valid [facility] Strep A (POCT) Negative Negative [facility] STREP A MOLECULAR (POC)on Procedural Control Valid [facility] Strep A (POCT) Negative Negative [facility] STREP A MOLECULAR (POC)on Procedural Control Valid [facility] Strep A (POCT) Negative Negative [facility] Vital Signs Date Time Vital Sign Value Performing Clinician Facility 04-16-2025 10:19-0400 Body temperature 98.4 [degF] Dr. Francoise Johnson MD Work Phone: [facility] 04-16-2025 10:19-0400 Diastolic blood pressure 72 mm[Hg] Dr. Francoise Johnson MD Work Phone: [facility] 04-16-2025 10:19-0400 Heart rate 71 /min Dr. Francoise Johnson MD Work Phone: [facility] 04-16-2025 10:19-0400 Respiratory rate 16 /min Dr. Francoise Johnson MD Work Phone: [facility] 04-16-2025 10:19-0400 SaO2% (BldA) [Mass fraction] 98 % Dr. Francoise Johnson MD Work Phone: [facility] 04-16-2025 10:19-0400 Systolic blood pressure 122 mm[Hg] Dr. Francoise Johnson MD Work Phone: [facility] 03-25-2025 13:32-0400 Body height 157.[address] Francoise Johnson MD Work Phone: [facility] 03-25-2025 13:32-0400 Body mass index (BMI) [Ratio] 22.4 kg/m2 Dr. Francoise Johnson MD Work Phone: [facility] 03-25-2025 13:32-0400 Body temperature 99 [degF] Dr. Francoise Johnson MD Work Phone: [facility] 03-25-2025 13:32-0400 Body weight 55.[address] Francoise Johnson MD Work Phone: [facility] 03-25-2025 13:32-0400 Diastolic blood pressure 60 mm[Hg] Dr. Francoise Johnson MD Work Phone: [facility] 03-25-2025 13:32-0400 Heart rate 98 /min Dr. Francoise Johnson MD Work Phone: [facility] 03-25-2025 13:32-0400 Respiratory rate 16 /min Dr. Francoise Johnson MD Work Phone: [facility] 03-25-2025 13:32-0400 SaO2% (BldA) [Mass fraction] 98 % Dr. Francoise Johnson MD Work Phone: [facility] 03-25-2025 13:32-0400 Systolic blood pressure 126 mm[Hg] Dr. Francoise Johnson MD Work Phone: [facility] 01-29-2025 22:03-0400 Body temperature 98.7 [degF] Dr. Sabine Pang DO Work Phone: [facility] 01-29-2025 22:03-0400 Diastolic blood pressure 73 mm[Hg] Dr. Sabine Pnag DO Work Phone: 9(140)687-716628 [place] [address] 01-29-2025 22:03-0400 Heart rate 100 /min Dr. Sabine Pang DO Work Phone: 3(344)392-313994 [place] [address] 01-29-2025 22:03-0400 Respiratory rate 14 /min Dr. Sabine Pang DO Work Phone: 3(790)543-428494 [place] [address] 01-29-2025 22:03-0400 SaO2% (BldA) [Mass fraction] 98 % Dr. Sabine Pang DO Work Phone: 3(054)618-911694 [place] [address] 01-29-2025 22:03-0400 Systolic blood pressure 113 mm[Hg] Dr. Sabine Pang DO Work Phone: 0(328)018-784194 [place] [address] 01-29-2025 20:00-0400 Body height 157.[address] Sabine Pang DO Work Phone: 5(776)975-406294 [place] [address] 01-29-2025 20:00-0400 Body mass index (BMI) [Ratio] 23.1 kg/m2 Dr. Sabine Pang DO Work Phone: 4(917)993-101194 [place] [address] 01-29-2025 20:00-0400 Body weight 57.[address] Sabine Pang DO Work Phone: 2(847)651-207594 [place] [address] 12-03-2024 15:42-0400 Body mass index (BMI) [Ratio] 22.8 kg/m2 Dr. Sabine Pang DO Work Phone: 0(914)817-561994 [place] [address] 12-03-2024 15:42-0400 Body temperature 98.6 [degF] Dr. Sabine Pang DO Work Phone: 3(489)009-683494 [place] [address] 12-03-2024 15:42-0400 Body weight 56.[address] Sabine Pang DO Work Phone: 8(796)018-443094 [place] [address] 12-03-2024 15:42-0400 Diastolic blood pressure 78 mm[Hg] Dr. Sabine Pang DO Work Phone: 3(391)163-399928 [place] [address] 12-03-2024 15:42-0400 Heart rate 69 /min Dr. Sabine Pang DO Work Phone: 1(579)719-559694 [place] [address] 12-03-2024 15:42-0400 Respiratory rate 16 /min Dr. Sabine Pang DO Work Phone: 8(909)965-052394 [place] [address] 12-03-2024 15:42-0400 SaO2% (BldA) [Mass fraction] 98 % Dr. Sabine Pang DO Work Phone: 3(512)215-974994 [place] [address] 12-03-2024 15:42-0400 Systolic blood pressure 120 mm[Hg] Dr. Sabine Pang DO Work Phone: 8(805)062-520494 [place] [address] 10-23-2024 13:57-0500 Body height 157.[address] Sabine Pang DO Work Phone: 5(554)495-303394 [place] [address] 10-23-2024 13:57-0500 Body mass index (BMI) [Ratio] 23.1 kg/m2 Dr. Sabine Pang DO Work Phone: 2(101)943-662594 [place] [address] 10-23-2024 13:57-0500 Body temperature 96.9 [degF] Dr. Sabine Pang DO Work Phone: 9(721)182-972994 [place] [address] 10-23-2024 13:57-0500 Body weight 57.[address] Sabine Pang DO Work Phone: 1(923)206-894794 [place] [address] 10-23-2024 13:57-0500 Diastolic blood pressure 66 mm[Hg] Dr. Sabine Pang DO Work Phone: 0(003)527-068894 [place] [address] 10-23-2024 13:57-0500 Heart rate 70 /min Dr. Sabine Pang DO Work Phone: 2(604)228-451194 [place] [address] 10-23-2024 13:57-0500 Respiratory rate 16 /min Dr. Sabine Pang DO Work Phone: [facility] 10-23-2024 13:57-0500 SaO2% (BldA) [Mass fraction] 98 % Dr. Sabine Pang DO Work Phone: [facility] 10-23-2024 13:57-0500 Systolic blood pressure 118 mm[Hg] Dr. Sabine Pang DO Work Phone: [facility] 09-30-2024 13:28-0500 Body mass index (BMI) [Ratio] 23.78 kg/m2 Bernarda Patiño APRN.CNM Work Phone: [facility] 09-30-2024 13:28-0500 Body weight 58.97 kg Bernarda Patiño APRN.CNM Work Phone: [facility] 09-30-2024 13:28-0500 Diastolic blood pressure 62 mm[Hg] Bernarda Patiño APRN.CNM Work Phone: [facility] 09-30-2024 13:28-0500 Systolic blood pressure 112 mm[Hg] Bernarda Patiño APRN.CNM Work Phone: [facility] 06-28-2024 14:09-0400 Body mass index (BMI) [Ratio] 25.89 kg/m2 Krislyn Aberegg PA Work Phone: [facility] 06-28-2024 14:09-0400 Body temperature 98.4 [degF] Krislyn Aberegg PA Work Phone: [facility] 06-28-2024 14:09-0400 Body weight 64.2 kg Krislyn Aberegg PA Work Phone: [facility] 06-28-2024 14:09-0400 Diastolic blood pressure 73 mm[Hg] Krislyn Aberegg PA Work Phone: [facility] 06-28-2024 14:09-0400 Heart rate 78 /min Krislyn Aberegg PA Work Phone: [facility] 06-28-2024 14:09-0400 Respiratory rate 16 /min Krislyn Aberegg PA Work Phone: [facility] 06-28-2024 14:090400 SaO2% (BldA) [Mass fraction] 100 % Krislyn Aberegg PA Work Phone: [facility] 06-28-2024 14:090400 Systolic blood pressure 107 mm[Hg] Krislyn Aberegg PA Work Phone: [facility] 06-25-2024 10:54-0400 Body mass index (BMI) [Ratio] 25.79 kg/m2 Bernarda Patiño STRETCH MACHINE OPERATOR.CNM Work Phone: [facility] 06-25-2024 10:54-0400 Body weight 63.96 kg Bernarda Patiño STRETCH MACHINE OPERATOR.CNM Work Phone: [facility] 06-25-2024 10:54-0400 Diastolic blood pressure 74 mm[Hg] Bernarda Patiño STRETCH MACHINE OPERATOR.CNM Work Phone: [facility] 06-25-2024 10:54-0400 Systolic blood pressure 112 mm[Hg] Bernarda Patiño STRETCH MACHINE OPERATOR.CNM Work Phone: [facility] 05-28-2024 10:38-0400 Body mass index (BMI) [Ratio] 25.42 kg/m2 Emilee Hannah MD Work Phone: [facility] 05-28-2024 10:38-0400 Body weight 63.05 kg Emilee Hannah MD Work Phone: [facility] 05-28-2024 10:38-0400 Diastolic blood pressure 62 mm[Hg] Emilee Hannah MD Work Phone: [facility] 05-28-2024 10:38-0400 Systolic blood pressure 100 mm[Hg] Emilee Hannah MD Work Phone: [facility] 05-16-2024 16:01-0400 Body mass index (BMI) [Ratio] 29.08 kg/m2 Emilee Hannah MD Work Phone: [facility] 05-16-2024 16:01-0400 Body weight 72.12 kg Emilee Hannah MD Work Phone: [facility] 05-16-2024 16:01-0400 Diastolic blood pressure 68 mm[Hg] Emilee Hannah MD Work Phone: [facility] 05-16-2024 16:01-0400 Systolic blood pressure 110 mm[Hg] Emilee Hannah MD Work Phone: [facility] 05-09-2024 15:46-0400 Body mass index (BMI) [Ratio] 28.79 kg/m2 Shawn Sewell MD Work Phone: [facility] 05-09-2024 15:46-0400 Body weight 71.4 kg Shawn Sewell MD Work Phone: [facility] 05-09-2024 15:46-0400 Diastolic blood pressure 68 mm[Hg] Shawn Sewell MD Work Phone: [facility] 05-09-2024 15:46-0400 Systolic blood pressure 122 mm[Hg] Shawn Sewell MD Work Phone: [facility] 05-02-2024 16:17-0400 Body mass index (BMI) [Ratio] 28.17 kg/m2 Shawn Sewell MD Work Phone: [facility] 05-02-2024 16:17-0400 Body weight 69.85 kg Shawn Sewell MD Work Phone: [facility] 05-02-2024 16:17-0400 Diastolic blood pressure 60 mm[Hg] Shawn Sewell MD Work Phone: [facility] 05-02-2024 16:17-0400 Systolic blood pressure 110 mm[Hg] Shawn Sewell MD Work Phone: [facility] 04-25-2024 15:46-0400 Body mass index (BMI) [Ratio] 28.53 kg/m2 Lacy Haury STRETCH MACHINE OPERATOR.KILN OPERATOR HELPER Work Phone: [facility] 04-25-2024 15:46-0400 Body weight 70.76 kg Lacy Haury STRETCH MACHINE OPERATOR.KILN OPERATOR HELPER Work Phone: [facility] 04-25-2024 15:46-0400 Diastolic blood pressure 66 mm[Hg] Lacy Haury STRETCH MACHINE OPERATOR.KILN OPERATOR HELPER Work Phone: [facility] 04-25-2024 15:46-0400 Systolic blood pressure 108 mm[Hg] Lacy Haury STRETCH MACHINE OPERATOR.KILN OPERATOR HELPER Work Phone: [facility] 04-11-2024 15:56-0400 Body mass index (BMI) [Ratio] 27.98 kg/m2 Lacy Haury STRETCH MACHINE OPERATOR.KILN OPERATOR HELPER Work Phone: [facility] 04-11-2024 15:56-0400 Body weight 69.4 kg Lacy Haury STRETCH MACHINE OPERATOR.KILN OPERATOR HELPER Work Phone: [facility] 04-11-2024 15:56-0400 Diastolic blood pressure 70 mm[Hg] Lacy Haury STRETCH MACHINE OPERATOR.KILN OPERATOR HELPER Work Phone: [facility] 04-11-2024 15:56-0400 Heart rate 104 /min Lacy Haury STRETCH MACHINE OPERATOR.KILN OPERATOR HELPER Work Phone: [facility] 04-11-2024 15:56-0400 Respiratory rate 14 /min Lacy Haury STRETCH MACHINE OPERATOR.KILN OPERATOR HELPER Work Phone: [facility] 04-11-2024 15:56-0400 SaO2% (BldA) [Mass fraction] 97 % Lacy Haury STRETCH MACHINE OPERATOR.KILN OPERATOR HELPER Work Phone: [facility] 04-11-2024 15:56-0400 Systolic blood pressure 116 mm[Hg] Lacy Haury STRETCH MACHINE OPERATOR.KILN OPERATOR HELPER Work Phone: [facility] 04-10-2024 15:09-0400 Respiratory rate 18 /min Treatment Wstr Work Phone: [facility] 04-07-2024 15:38-0400 Body temperature 97.39 [degF] Treatment [facility]str Work Phone: [facility] 04-07-2024 15:38-0400 Diastolic blood pressure 75 mm[Hg] Treatment Wstr Work Phone: [facility] 04-07-2024 15:38-0400 Heart rate 99 /min Treatment [facility]str Work Phone: [facility] 04-07-2024 15:38-0400 SaO2% (BldA) [Mass fraction] 96 % Treatment [facility] Work Phone: [facility] 04-07-2024 15:38-0400 Systolic blood pressure 116 mm[Hg] Treatment [facility]str Work Phone: [facility] 03-31-2024 15:04-0400 Body temperature 97.7 [degF] Treatment [facility]str Work Phone: [facility] 03-31-2024 15:04-0400 Diastolic blood pressure 72 mm[Hg] Treatment [facility]str Work Phone: [facility] 03-31-2024 15:04-0400 Heart rate 103 /min Treatment [facility]str Work Phone: [facility] 03-31-2024 15:04-0400 Respiratory rate 16 /min Treatment [facility]str Work Phone: [facility] 03-31-2024 15:04-0400 SaO2% (BldA) [Mass fraction] 93 % Treatment [facility] Work Phone: [facility] 03-31-2024 15:04-0400 Systolic blood pressure 111 mm[Hg] Treatment Wstr Work Phone: [facility] 03-27-2024 11:02-0400 Body mass index (BMI) [Ratio] 27.44 kg/m2 Rodney Leon MD Work Phone: [facility] 03-27-2024 11:02-0400 Body weight 68.04 kg Rodney Leon MD Work Phone: [facility] 03-27-2024 11:02-0400 Diastolic blood pressure 62 mm[Hg] Rodney Leon MD Work Phone: [facility] 03-27-2024 11:02-0400 Systolic blood pressure 112 mm[Hg] Rodney Leon MD Work Phone: [facility] 03-27-2024 08:30-0400 Body temperature 98.49 [degF] Treatment Wstr Work Phone: [facility] 03-27-2024 08:30-0400 Diastolic blood pressure 70 mm[Hg] Treatment Wstr Work Phone: [facility] 03-27-2024 08:30-0400 Heart rate 98 /min Treatment [facility]str Work Phone: [facility] 03-27-2024 08:30-0400 Respiratory rate 16 /min Treatment [facility]str Work Phone: [facility] 03-27-2024 08:30-0400 SaO2% (BldA) [Mass fraction] 99 % Treatment [facility]str Work Phone: [facility] 03-27-2024 08:30-0400 Systolic blood pressure 122 mm[Hg] Treatment Wstr Work Phone: [facility] 03-24-2024 15:08-0400 Body temperature 98.8 [degF] Treatment [facility]str Work Phone: [facility] 03-24-2024 15:08-0400 Diastolic blood pressure 80 mm[Hg] Treatment Wstr Work Phone: [facility] 03-24-2024 15:08-0400 Heart rate 94 /min Treatment [facility]str Work Phone: [facility] 03-24-2024 15:08-0400 Respiratory rate 18 /min Treatment [facility]str Work Phone: [facility] 03-24-2024 15:08-0400 Systolic blood pressure 124 mm[Hg] Treatment Wstr Work Phone: [facility] 03-18-2024 14:10-0400 Body mass index (BMI) [Ratio] 26.89 kg/m2 Leeroy Osorio MD Work Phone: [facility] 03-18-2024 14:10-0400 Body weight 66.68 kg Leeroy Osorio MD Work Phone: [facility] 03-18-2024 14:10-0400 Diastolic blood pressure 60 mm[Hg] Leeroy Osorio MD Work Phone: [facility] 03-18-2024 14:10-0400 Systolic blood pressure 120 mm[Hg] Leeroy Osorio MD Work Phone: [facility] 02-28-2024 13:35-0400 Body mass index (BMI) [Ratio] 25.79 kg/m2 Rodney Leon MD Work Phone: [facility] 02-28-2024 13:35-0400 Body weight 63.96 kg Rodney Leon MD Work Phone: [facility] 02-28-2024 13:35-0400 Diastolic blood pressure 62 mm[Hg] Rodney Leon MD Work Phone: [facility] 02-28-2024 13:35-0400 Systolic blood pressure 118 mm[Hg] Rodney Leon MD Work Phone: [facility] 01-29-2024 16:09-0400 Body mass index (BMI) [Ratio] 25.12 kg/m2 Rodney Leon MD Work Phone: [facility] 01-29-2024 16:09-0400 Body weight 62.3 kg Rodney Leon MD Work Phone: [facility] 01-29-2024 16:09-0400 Diastolic blood pressure 60 mm[Hg] Rodney Leon MD Work Phone: [facility] 01-29-2024 16:09-0400 Systolic blood pressure 100 mm[Hg] Rodney Leon MD Work Phone: [facility] 01-21-2024 13:45-0400 Body mass index (BMI) [Ratio] 25.24 kg/m2 Emilee Hannah MD Work Phone: [facility] 01-21-2024 13:45-0400 Body weight 62.6 kg Emilee Hannah MD Work Phone: [facility] 01-21-2024 13:45-0400 Diastolic blood pressure 60 mm[Hg] Emilee Hannah MD Work Phone: [facility] 01-21-2024 13:45-0400 Systolic blood pressure 110 mm[Hg] Emilee Hannah MD Work Phone: [facility] 01-08-2024 23:15-0400 Body temperature 98.2 [degF] [facility] 01-08-2024 23:15-0400 Diastolic blood pressure 61 mm[Hg] [facility] 01-08-2024 23:15-0400 Respiratory rate 18 /min [facility] 01-08-2024 23:15-0400 Systolic blood pressure 108 mm[Hg] [facility] 01-08-2024 21:17-0400 Heart rate 71 /min [facility] 01-08-2024 21:17-0400 SaO2% (BldA) [Mass fraction] 98 % [facility] 01-08-2024 20:26-0400 Body height 157.48 cm [facility] 01-08-2024 20:26-0400 Body mass index (BMI) [Ratio] 24.7 kg/m2 [facility] 01-08-2024 20:26-0400 Body weight 61.23 kg [facility] 01-01-2024 13:58-0400 Body mass index (BMI) [Ratio] 24.87 kg/m2 Rodney Leon MD Work Phone: [facility] 01-01-2024 13:58-0400 Body weight 61.69 kg Rodney Leon MD Work Phone: [facility] 01-01-2024 13:58-0400 Diastolic blood pressure 60 mm[Hg] Rodney Leon MD Work Phone: [facility] 01-01-2024 13:58-0400 Systolic blood pressure 104 mm[Hg] Rodney Leon MD Work Phone: [facility] 12-05-2023 13:07-0400 Body weight 60.78 kg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 Porter STRETCH MACHINE OPERATOR.KILN OPERATOR HELPER Work Phone: Start: 08-29-2022 STREP A MOLECULAR (POC) Jong Weber STRETCH MACHINE OPERATOR.KILN OPERATOR HELPER Work Phone: Start: 05-26-2022 STREP A MOLECULAR (POC) Carmita Whitman STRETCH MACHINE OPERATOR.KILN OPERATOR HELPER Work Phone: Start: 03-18-2022 STREP A MOLECULAR (POC) Alicja Osorio STRETCH MACHINE OPERATOR.KILN OPERATOR HELPER Work Phone: Plan of Treatment Date Care Activity Detail Author Start: 02-27-2034 Urine microalbumin profile DTaP,Tdap,Td Vaccine (9 - Td or Tdap) [facility] Start: 07-05-2029 Urine microalbumin profile DTaP,Tdap,Td Vaccine (8 - Td or Tdap) [facility] Start: 06-25-2027 Screening for malign ant neoplasm of cervix Cervical Cancer Screening [facility] Start: 10-05-2025 End: 10-05-2025 Patient encounter procedure 10/05/2025 8:15 AM EST Office Visit OB/Gynecology [address] [place] [address] Bernarda Patiño APRN.CNM [address] [place] [address] Annual OB/Gynecology Comment on above: Annual Start: 06-29-2025 End: 06-29-2025 Patient encounter procedure 06/29/2025 10:45 AM EDT Office Visit OB/Gynecology [address] [place] [address] Bernarda Patiño APRN.CN [address] [place] [address] Annual OB/Gynecology Comment on above: Annual Start: 05-04-2025 Influenza vaccination Influenza Vacc ine (#1) [facility] Start: 01-29-2025 [facility] Start: 10-30-2024 GC (Gonorrhea) Screening () GC (Gonorrhea) Screening () [facility] Start: 10-30-2024 Screening for Chlamy lowell trachomatis Chlamydia Screening () [facility] Start: 10-14-2024 End: 10-14-2024 ambulatory 10/14/2024 10:30 AM [facility] OB/Gynecology [address] [place] [address] Bernarda Patiño APRN.CNM [address] [place] [address] Medication f/u OB/Gynecology Comment on above: Medication f/u Start: 09-30-2024 End: 12-30-2024 Thyrotropin [Units/volume] in Serum or Plasma [facility] Work Phone: Comment on above: Expected: 09/30/2024 , Expires: 12/30/2024 Start: 09-30-2024 End: 12-30-2024 Thyroxine (T4) free [Mass/volume] in Serum or Plasma [facility] Comment on above: Expected: 09/30/2024 , Expires: 12/30/2024 Start: 06-25-2024 End: 06-25-2024 Patient encounter procedure 06/25/2024 10:45 AM EDT Office Visit OB/Gynecology [address] [place] [address] Bernarda Patiño APRN.CNM [address] [place] [id number] pp OB/Gynecology Comment on above: pp Start: 06-09-2024 End: 06-09-2024 Patient encounter procedure 06/09/2024 10:00 AM EDT Appointment Radiology [address] [place] [id number] Abdominal pain, RUQ [R10.11] Radiology Comment on above: Abdominal pain, RUQ [R10.11] Start: 05-28-2024 End: 05-28-2024 Patient encounter procedure 05/28/2024 10:30 AM EDT Office Visit OB/Gynecology [address] [place] [address] Emilee Alfonso MD [address] [place] [address] PP OB/Gynecology Comment on above: PP Start: 05-19-2024 End: 05-19-2024 Patient encounter procedure 05/19/2024 10:40 AM EDT Routine Office Visit OB/Gynecology [address] [place] [address] Shawn Sewell MD [address] [place] [address] OB routine OB/Gynecology Comment on above: OB routine Start: 05-16-2024 End: 05-16-2024 Patient encounter procedure 05/16/2024 3:40 PM EDT Routine Office Visit OB/Gynecology [address] [place] [address] Emilee Alfonso MD [address] [place] [address] ob OB/Gynecology Comment on above: ob Start: 05-09-2024 End: 05-09-2024 Patient encounter procedure 05/09/2024 3:40 PM EDT Routine Office Visit OB/Gynecology [address] [place] [address] Shawn Sewell MD [address] [place] [address] ob OB/Gynecology Comment on above: ob Start: 05-04-2024 Covid-19 Vaccine () Covid-19 Vaccine () [facility] Start: 05-04-2024 Covid-19 Vaccine ( season) Covid-19 Vaccine ( season) [facility] Start: 05-04-2024 Influenza vaccination [facility] Start: 05-02-2024 End: 05-02-2024 Patient encounter procedure 05/02/2024 4:20 PM EDT Routine Office Visit OB/Gynecology [address] [place] [address] Shawn Sewell MD [address] [place] [address] ob OB/Gynecology Comment on above: ob Start: 05-02-2024 End: 08-01-2024 CBC panel - Blood by Automated count COMPLETE BLOOD COUNT Lab Routine 37 weeks gestation of Anemia during in third trimester Expected: 05/02/2024, Expires: 08/01/2024 [facility] Work Phone: Comment on above: Expected: 05/02/2024 , Expires: 08/01/2024 Start: 04-25-2024 End: 04-25-2024 Patient encounter procedure 04/25/2024 3:45 PM EDT Routine Office Visit OB/Gynecology [address] [place] [address] Lacy Mcwilliams APRN.KILN OPERATOR HELPER [address] [place] [address] ob OB/Gynecology Comment on above: ob Start: 04-17-2024 End: 04-17-2024 ambulatory 04/17/2024 3:45 PM EDT Results Only [place] [facility] Laboratory [address] [place] [address] [place] [facility] Start: 04-16-2024 End: 07-16-2024 Cobalamin (Vitamin B12) [Mass/volume] in Serum or Plasma VITAMIN B12 Lab Routine Maternal iron deficiency anemia complicating , third trimester Expected: 04/16/2024, Expires: 07/16/2024 [facility] Work Phone: Comment on above: Expected: 04/16/2024 , Expires: 07/16/2024 Start: 04-16-2024 End: 07-16-2024 Folate [Mass/volume] in Serum or Plasma FOLATE, SERUM Lab Routine Maternal iron deficiency anemia complicating , third trimester Expected: 04/16/2024, Expires: 07/16/2024 [facility] Comment on above: Expected: 04/16/2024 , Expires: 07/16/2024 Start: 04-11-2024 End: 04-11-2024 Patient encounter procedure 04/11/2024 3:45 PM EDT Routine Office Visit OB/Gynecology [address] [place] [address] Lacy Mcwilliams APRN.KILN OPERATOR HELPER [address] [place] [address] ob OB/Gynecology Comment on above: ob Start: 04-11-2024 End: 07-11-2024 Ferritin [Mass/volume] in Serum or Plasma [facility] Comment on above: Expected: 04/11/2024 , Expires: 07/11/2024 Start: 04-11-2024 End: 07-11-2024 Iron and Iron binding capacity panel - Serum or Plasma [facility] Work Phone: Comment on above: Expected: 04/11/2024 , Expires: 07/11/2024 Start: 04-10-2024 End: 04-10-2024 ambulatory 04/10/2024 3:00 PM EDT Visit (SP) Office Hematology/Oncology [address] [place] [address] 2nd Hematology/Oncology Comment on above: 2nd Start: 04-07-2024 End: 04-07-2024 ambulatory 04/07/2024 3:30 PM EDT Visit (SP) Office Hematology/Oncology [address] [place] [address] 2nd Hematology/Oncology Comment on above: 2nd Start: 03-31-2024 End: 03-31-2024 ambulatory 03/31/2024 3:00 PM EDT Visit (SP) Office Hematology/Oncology [address] [place] [address] 2nd Hematology/Oncology Comment on above: 2nd Start: 03-27-2024 End: 03-27-2024 Patient encounter procedure 03/27/2024 10:50 AM EDT Routine Office Visit OB/Gynecology [address] [place] [address] Rodney Leon MD [address] [place] [address] OB OB/Gynecology Comment on above: OB Start: 03-27-2024 End: 03-27-2024 ambulatory 03/27/2024 8:30 AM EDT Visit (SP) Office Hematology/Oncology [address] [place] [address] 2nd Hematology/Oncology Comment on above: 2nd Start: 03-24-2024 End: 03-24-2024 ambulatory 03/24/2024 3:00 PM EDT Visit (SP) Office Hematology/Oncology [address] [place] [address] 2nd Hematology/Oncology Comment on above: 2nd Start: 03-18-2024 End: 03-18-2024 Patient encounter procedure 03/18/2024 2:20 PM EDT Routine Office Visit OB/Gynecology [address] [place] [address] Leeroy Osorio MD [address] [place] [address] OB OB/Gynecology Comment on above: OB Start: 03-13-2024 End: 03-13-2024 Patient encounter procedure 03/13/2024 10:40 AM EDT Routine Office Visit OB/Gynecology [address] [place] [address] Rodney Leon MD [address] [place] [address] OB OB/Gynecology Comment on above: OB Start: 02-29-2024 End: 05-30-2024 CBC W Auto Differential panel - Blood COMPLETE BLOOD COUNT AND DIFFERENTIAL Lab Routine 24 weeks gestation of Encounter for supervision of normal first in second trimester Expected: 02/29/2024 (Approximate), Expires: 05/30/2024 [facility] Comment on above: Expected: 02/29/2024 (Approximate), Expires: 05/30/2024 Start: 02-29-2024 End: 05-30-2024 GESTATIONAL GLUCOSE SCREEN, 1-HOUR, 50 GRAM, NON-FASTING GESTATIONAL GLUCOSE SCREEN, 1-HOUR, 50 GRAM, NON-FASTING Lab Routine 24 weeks gestation of Encounter for supervision of normal first in second trimester Expected: 02/29/2024 (Approximate), Expires: 05/30/2024 [facility] Work Phone: Comment on above: Expected: 02/29/2024 (Approximate), Expires: 05/30/2024 Start: 02-29-2024 End: 05-30-2024 SYPHILIS TOTAL W/REFLEX SYPHILIS TOTAL W/REFLEX Lab Routine 24 weeks gestation of Encounter for supervision of normal first in second trimester Expected: 02/29/2024 (Approximate), Expires: 05/30/2024 [facility] Comment on above: Expected: 02/29/2024 (Approximate), Expires: 05/30/2024 Start: 02-28-2024 End: 02-28-2024 Patient encounter procedure 02/28/2024 1:30 PM EDT Routine Office Visit OB/Gynecology [address] [place] [address] Rodney Leon MD [address] [place] [address] OB OB/Gynecology Comment on above: OB Start: 02-28-2024 End: 02-28-2024 ambulatory 02/28/2024 1:15 PM EDT Results Only Delvis Diaz [facility] Laboratory [address] [place] [address] LAB [facility] Laboratory Comment on above: LAB Start: 01-29-2024 End: 01-29-2024 Patient encounter procedure 01/29/2024 4:20 PM EDT Routine Office Visit OB/Gynecology [address] [place] [address] Rodney Leon MD [address] [place] [address] OB OB/Gynecology Comment on above: OB Start: 01-29-2024 End: 04-29-2024 Iron and Iron binding capacity panel - Serum or Plasma IRON AND TIBC Lab Routine 24 weeks gestation of Encounter for supervision of normal first in second trimester Anemia during in second trimester Expected: 01/29/2024, Expires: 04/29/2024 [facility] Comment on above: Expected: 01/29/2024 , Expires: 04/29/2024 Start: 01-21-2024 End: 04-21-2024 CBC panel - Blood by Automated count COMPLETE BLOOD COUNT Lab Routine 23 weeks gestation of Encounter for supervision of normal first in second trimester Expected: 01/21/2024, Expires: 04/21/2024 [facility] Work Phone: Comment on above: Expected: 01/21/2024 , Expires: 04/21/2024 Start: 01-21-2024 End: 04-21-2024 GESTATIONAL GLUCOSE SCREEN, 1-HOUR, 50 GRAM, NON-FASTING GESTATIONAL GLUCOSE SCREEN, 1-HOUR, 50 GRAM, NON-FASTING Lab Routine 23 weeks gestation of Encounter for supervision of normal first in second trimester Expected: 01/21/2024, Expires: 04/21/2024 [facility] Comment on above: Expected: 01/21/2024 , Expires: 04/21/2024 Start: 01-21-2024 End: 04-21-2024 SYPHILIS TOTAL W/REFLEX SYPHILIS TOTAL W/REFLEX Lab Routine 23 weeks gestation of Encounter for supervision of normal first in second trimester Expected: 01/21/2024, Expires: 04/21/2024 [facility] Comment on above: Expected: 01/21/2024 , Expires: 04/21/2024 Start: 01-08-2024 [facility] Start: 01-08-2024 [facility] Start: 01-08-2024 Bacteria identified in Urine by Culture [facility] Start: 01-06-2024 Screening for malign ant neoplasm of cervix [facility] Start: 12-05-2023 End: 12-04-2024 OBSTETRIC ULTRASOUND [facility] OBSTETRIC ULTRASOUND [facility] Anc Imaging Routine 16 weeks gestation of Encounter for supervision of normal first in second trimester Expected: 12/05/2023, Expires: 12/04/2024 [facility] Work Phone: Comment on above: Expected: 12/05/2023 , Expires: 12/04/2024 Start: 10-30-2023 End: 01-29-2024 CBC panel - Blood by Automated count CBC Lab Routine Encounter for care in second trimester of first 13 weeks gestation of Expected: 10/30/2023, Expires: 01/29/2024 [facility] Work Phone: Comment on above: Expected: 10/30/2023 , Expires: 01/29/2024 Start: 10-30-2023 End: 01-29-2024 Hemoglobin A1c in Blood HGB A1C Lab Routine Encounter for care in second trimester of first 13 weeks gestation of Expected: 10/30/2023, Expires: 01/29/2024 [facility] Work Phone: Comment on above: Expected: 10/30/2023 , Expires: 01/29/2024 Start: 10-30-2023 End: 01-29-2024 HEMOGLOBIN EVALUATION CASCADE HEMOGLOBIN EVALUATION CASCADE Lab Routine Encounter for care in second trimester of first 13 weeks gestation of Expected: 10/30/2023, Expires: 01/29/2024 [facility] Work Phone: Comment on above: Expected: 10/30/2023 , Expires: 01/29/2024 Start: 10-30-2023 End: 01-29-2024 Hepatitis B virus surface Ag [Presence] in Serum HEP B SURF AG SCRN Lab Routine Encounter for care in second trimester of first 13 weeks gestation of Expected: 10/30/2023, Expires: 01/29/2024 [facility] Work Phone: Comment on above: Expected: 10/30/2023 , Expires: 01/29/2024 Start: 10-30-2023 End: 01-29-2024 Hepatitis C virus Ab [Presence] in Serum HEPATITIS C ANTIBODY IA WITH CONFIRMATION Lab Routine Encounter for care in second trimester of first 13 weeks gestation of Expected: 10/30/2023, Expires: 01/29/2024 [facility] Work Phone: Comment on above: Expected: 10/30/2023 , Expires: 01/29/2024 Start: 10-30-2023 End: 01-29-2024 HIV 1+2 Ab [Presence] in Serum or Plasma by Immunoassay HIV 1 2 COMBO(AG/AB),WITH REFLEX TO DIFFERENTIATION Lab Routine Encounter for care in second trimester of first 13 weeks gestation of Expected: 10/30/2023, Expires: 01/29/2024 [facility] Work Phone: Comment on above: Expected: 10/30/2023 , Expires: 01/29/2024 Start: 10-30-2023 End: 10-30-2024 OBSTETRIC ULTRASOUND [facility] Work Phone: Comment on above: Ordered: 10/30/2023 Expected: 10/30/2023 , Expires: 10/30/2024 Start: 10-30-2023 End: 01-29-2024 RUBELLA IGG AB RUBELLA IGG AB Lab Routine Encounter for care in second trimester of first 13 weeks gestation of Expected: 10/30/2023, Expires: 01/29/2024 [facility] Work Phone: Comment on above: Expected: 10/30/2023 , Expires: 01/29/2024 Start: 10-30-2023 End: 01-29-2024 SYPHILIS TOTAL W/REFLEX SYPHILIS TOTAL W/REFLEX Lab Routine Encounter for care in second trimester of first 13 weeks gestation of Expected: 10/30/2023, Expires: 01/29/2024 [facility] Work Phone: Comment on above: Expected: 10/30/2023 , Expires: 01/29/2024 Start: 10-30-2023 End: 01-29-2024 TYPE + SCREEN TYPE + SCREEN Blood Bank Routine Encounter for care in second trimester of first 13 weeks gestation of Expected: 10/30/2023, Expires: 01/29/2024 [facility] Work Phone: Comment on above: Expected: 10/30/2023 , Expires: 01/29/2024 Start: 09-03-2023 Behavioral Health Screening Behavioral Health Screening [facility] Start: 09-03-2023 Depression Assessment [facility] Start: 07-10-2023 End: 07-24-2023 COVID & INFLUENZA A/B & RSV NAAT, ROUTINE [facility] Work Phone: Comment on above: Expected: 07/10/2023 , Expires: 07/24/2023 Start: 06-18-2023 [facility] Start: 05-04-2023 Covid-19 Vaccine ( season) Covid-19 Vaccine ( season) [facility] Start: 05-04-2023 Influenza vaccination Influenza Vacc ine (#1) [facility] Start: 09-03-2022 DEPRESSION ASSESSMENT DEPRESSION ASS [facility] Start: 05-26-2022 End: 06-09-2022 Influenza virus A and B RNA and SARS-CoV-2 (COVID-19) N gene panel - Respiratory specimen by KODI with probe detection COVID WITH FLUA+B, ROUTINE Microbiology Routine Suspected COVID-19 virus infection Expected: 05/26/2022, Expires: 06/09/2022 [facility] Work Phone: Comment on above: Expected: 05/26/2022 , Expires: 06/09/2022 Start: 05-04-2022 Influenza vaccination INFLUENZA (#1) [facility] Start: 03-18-2022 End: 04-01-2022 Influenza virus A and B RNA and SARS-CoV-2 (COVID-19) N gene panel - Respiratory specimen by KODI with probe detection COVID WITH FLUA+B, ROUTINE Microbiology Routine Sore throat Exposure to COVID-19 virus Expected: 03/18/2022, Expires: 04/01/2022 [facility] Work Phone: Comment on above: Expected: 03/18/2022 , Expires: 04/01/2022 Start: 2022 Urine microalbumin profile [facility] Start: 09-03-2021 DEPRESSION ASSESSMENT DEPRESSION ASS ESSMENT [facility] Start: 01-20-2021 COVID-19 VACCINE (2 - Pfizer series) COVID-19 VACCINE (2 - Pfizer series) [facility] Start: 2021 Annual PCP Team Staff Nurse lasha Disease Visit Annual PCP Team Chronic Disease Visit [facility] Start: 2021 Anxiety Screening Anxiety Screening [facility] Start: 2021 CHLAMYDIA SCREENING (18-24) CHLAMYDIA SCREENING (18-24) [facility] Start: 2021 Depression Screening Depression Scre ening [facility] Start: 2021 GC (GONORRHEA) SCREENING (18-24) GC (GONORRHEA) SCREENING (18-24) [facility] Start: 2021 HEPATITIS C SCREENING HEPATITIS C [facility] Start: 2021 Hepatitis C screening Hepatitis C [facility] Start: 2021 HIV SCREENING HIV SCREENING [facility] Start: 2021 HIV screening HIV Screening [facility] Start: 2021 Spirometry Spirometry [facility] Start: 2019 Meningococcal B Vaccine: Consider Based On Risk (1 of 2 - Patient Seeks Protection) Meningococcal B Vaccine: Consider Based On Risk (1 of 2 - Patient Seeks Protection) [facility] Start: 2017 PEDS TO ADULT TRANSITION ANNUAL ASSESSMENT PEDS TO ADULT TRANSITION ANNUAL ASSESSMENT [facility] Start: 2015 Adult depression screening assessment DEPRESSION SCREENING [facility] Start: 2015 PEDS TO ADULT TRANSITION INITIAL DISCUSSION PEDS TO ADULT TRANSITION INITIAL DISCUSSION [facility] Start: 2014 HPV VACCINE (1 - 2-d ose series) HPV VACCINE (1 - 2-dose series) [facility] Start: 2013 MENINGOCOCCAL B: Consider based on risk (1 of 2 - Risk Bexsero 2-dose series) MENINGOCOCCAL B: Consider based on risk (1 of 2 - Risk Bexsero 2-dose series) [facility] Start: 01-06-2012 HPV Vaccine (1 - 2-d ose series) HPV Vaccine (1 - 2-dose series) [facility] Start: 2007 Asthma Control Test Asthma Control T est [facility] Start: 2005 Asthma Action Plan Asthma Action Javier n [facility] Start: 2003 HEPATITIS B (1 of 3 - 3-dose series) HEPATITIS B (1 of 3 - 3-dose series) [facility] Start: 2003 Hepatitis B Vaccine (1 of 3 - 3-dose series) Hepatitis B Vaccine (1 of 3 - 3-dose series) [facility] Bacteria identified in Urine by Culture URINE CULTURE Microbiology Routine 23 weeks gestation of Encounter for supervision of normal first in second trimester 01/21/2024 2:11 PM EDT [facility] COVID & INFLUENZA A/ B & RSV PCR, ROUTINE COVID & INFLUENZA A/B & RSV PCR, ROUTINE Microbiology Routine URI, acute Ordered: 06/28/2024 [facility] Work Phone: Comment on above: Ordered: 06/28/2024 NUCHAL TRANSLUCENCY [facility] NUCHAL T RANSLUCENCY [facility] Anc Imaging Routine Encounter for care in second trimester of first 13 weeks gestation of Ordered: 10/30/2023 [facility] Work Phone: Comment on above: Ordered: 10/30/2023 Patient Education [facility] Work Phone: Patient referral [facility] Work Phone: ROUTINE FLU A/B + RSV ROUTINE FL U A/B + RSV Lab Routine Sore throat Viral illness 07/10/2023 12:01 PM EST [facility] Work Phone: ROUTINE, GR OUP B STREP PCR ROUTINE, GROUP B STREP PCR Microbiology Routine Anemia during in third trimester 36 weeks gestation of Encounter for supervision of normal first in third trimester 04/25/2024 4:15 PM EDT [facility] Work Phone: SARS-CoV-2 (COVID-19 ) RNA [Presence] in Respiratory specimen by KODI with probe detection COVID NAAT, UPPER RESPIRATORY, ROUTINE Microbiology Routine Sore throat Viral illness 07/10/2023 12:01 PM EST [facility] Work Phone: Tilt table test [facility] URINE OB DIP B/O URINE OB DIP B/ O Lab Routine 38 weeks gestation of Anemia during in third trimester Ordered: 05/09/2024 [facility] Work Phone: Comment on above: Ordered: 05/09/2024 End: 06-27-2025 US Abdomen RUQ US ABD RIGHT UPPER QUADRANT Radiology Routine Abdominal pain, RUQ 1 Occurrences starting 05/28/2024 until 06/27/2025 [facility] Work Phone: Comment on above: 1 Occurrences starti ng 05/28/2024 until 06/27/2025 [facility] Immunizations Immunization Date Immunization Notes Care Provider [facility] 05-18-2024 influenza, seasonal, injectable, preservative free Dr. Sabine Pang DO Work Phone: [facility] 05-18-2024 measles, mumps and rubella virus vaccine Dr. Sabine Pang DO Work Phone: [facility] 05-18-2024 influenza virus vacc ine, unspecified formulation Pau Bradford MD Work Phone: [facility] 02-28-2024 tetanus toxoid, redu hedy diphtheria toxoid, and acellular pertussis vaccine, adsorbed Rodney Leon MD Work Phone: [facility] 05-24-2021 influenza, injectabl e, quadrivalent, preservative free Rodney Leon MD Work Phone: [facility] Work Phone: 05-24-2021 influenza virus vacc ine, unspecified formulation Michael Stern APRN.[employer]PERATOR HELPER Work Phone: [facility] 12-30-2020 Covid (Pfizer) Dr. Sabine bynum DO Work Phone: [facility] 07-08-2019 meningococcal B vacc ine, fully recombinant Dr. Sabine Pang DO Work Phone: [facility] 07-08-2019 meningococcal B vacc ine, recombinant, OMV, adjuvanted Rodney Leon MD Work Phone: [facility] Work Phone: 07-05-2019 tetanus toxoid, redu hedy diphtheria toxoid, and acellular pertussis vaccine, adsorbed [facility] 06-23-2019 influenza, injectabl e, quadrivalent, preservative free Rodney Leon MD Work Phone: [facility] Work Phone: 04-03-2019 meningococcal B vacc ine, fully recombinant Dr. Sabine Pang DO Work Phone: [facility] 04-03-2019 meningococcal B vacc ine, recombinant, OMV, adjuvanted Rodney Leon MD Work Phone: [facility] Work Phone: 04-03-2019 meningococcal polysaccharide (groups A, C, Y and W-135) diphtheria toxoid conjugate vaccine (MCV4P) Rodney Leon MD Work Phone: [facility] Work Phone: 07-05-2018 influenza, injectabl e, quadrivalent, preservative free Rodney Leon MD Work Phone: [facility] Work Phone: 06-25-2017 influenza, injectabl e, quadrivalent, contains preservative Rodney Leon MD Work Phone: [facility] Work Phone: 06-25-2017 influenza, injectabl e, quadrivalent, preservative free Rodney Leon MD Work Phone: [facility] Work Phone: 03-28-2016 Human Papillomavirus 9-valent vaccine Rodney Leon MD Work Phone: [facility] Work Phone: 11-26-2015 Human Papillomavirus 9-valent vaccine Rodney Leon MD Work Phone: [facility] Work Phone: 09-20-2015 Human Papillomavirus 9-valent vaccine Rodney Leon MD Work Phone: [facility] Work Phone: 08-05-2014 influenza virus vacc ine, live, attenuated, for intranasal use Dr. Sabine Pang DO Work Phone: [facility] 08-05-2014 influenza, live, intranasal, quadrivalent Rodney Leon MD Work Phone: [facility] Work Phone: 08-05-2014 meningococcal polysaccharide (groups A, C, Y and W-135) diphtheria toxoid conjugate vaccine (MCV4P) Rodney Leon MD Work Phone: [facility] Work Phone: 08-05-2014 tetanus toxoid, redu hedy diphtheria toxoid, and acellular pertussis vaccine, adsorbed Rodney Leon MD Work Phone: [facility] Work Phone: 08-04-2013 influenza virus vacc ine, live, attenuated, for intranasal use Dr. Sabine Pang DO Work Phone: [facility] 08-04-2013 influenza, live, intranasal, quadrivalent Rodney Leon MD Work Phone: [facility] Work Phone: 07-24-2012 influenza virus vacc ine, live, attenuated, for intranasal use Rodney Leon MD Work Phone: [facility] Work Phone: 01-16-2007 diphtheria, tetanus toxoids and acellular pertussis vaccine Dr. Sabine Pang DO Work Phone: [facility] 01-16-2007 diphtheria, tetanus toxoids and acellular pertussis vaccine, unspecified formulation Rodney Leon MD Work Phone: [facility] Work Phone: 01-16-2007 hepatitis A vaccine, adult dosage Rodney Leon MD Work Phone: [facility] Work Phone: 01-16-2007 measles, mumps and rubella virus vaccine Rodney Leon MD Work Phone: [facility] Work Phone: 01-16-2007 measles, mumps, rube lla, and varicella virus vaccine Dr. Sabine Pang DO Work Phone: [facility] 01-16-2007 poliovirus vaccine, inactivated Rodney Leon MD Work Phone: [facility] Work Phone: 01-16-2007 varicella virus vaccine Mila Leon MD Work Phone: [facility] Work Phone: 01-09-2006 hepatitis A vaccine, adult dosage Rodney Leon MD Work Phone: [facility] Work Phone: 01-17-2005 pneumococcal conjuga te vaccine, 7 valent Rodney Leon MD Work Phone: [facility] Work Phone: 01-14-2005 pneumococcal conjuga te vaccine, 7 valent Rodney Leon MD Work Phone: [facility] Work Phone: 04-11-2004 diphtheria, tetanus toxoids and acellular pertussis vaccine Rodney Leon MD Work Phone: [facility] Work Phone: 04-11-2004 varicella virus vaccine Mila Leon MD Work Phone: [facility] Work Phone: 01-06-2004 haemophilus influenz ae type b conjugate and Hepatitis B vaccine Rodney Leon MD Work Phone: [facility] Work Phone: 01-06-2004 measles, mumps and rubella virus vaccine Rodney Leon MD Work Phone: [facility] Work Phone: 2003 poliovirus vaccine, inactivated Rodney Leon MD Work Phone: [facility] Work Phone: 2003 diphtheria, tetanus toxoids and acellular pertussis vaccine Dr. Sabine Pang DO Work Phone: [facility] 2003 diphtheria, tetanus toxoids and acellular pertussis vaccine, unspecified formulation Rodney Leon MD Work Phone: [facility] Work Phone: 2003 haemophilus influenz ae type b vaccine, PRP-T conjugate Rodney Leon MD Work Phone: [facility] Work Phone: 2003 pneumococcal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 Normocephalic and atraumatic NECK: Supple and full range of motion DERMATOLOGY: Normal and without lesions CHEST: Normal inspiratory effort NEURO: alert and oriented x3,exam grossly non-focal EXTREMITIES: normal ASSESSMENT AND PLAN: Assessment AND Plan Malaise and fatigue Orders: THYROID STIMULATING HORMONE; Future T4 FREE/FREE THYROXINE; Future VITAMIN D 25 HYDROXY; Future CONSULT TO WOMEN'S BEHAVIORAL HEALTH; Future Generalized anxiety disorder Orders: THYROID STIMULATING HORMONE; Future T4 FREE/FREE THYROXINE; Future VITAMIN D 25 HYDROXY; Future CONSULT TO WOMEN'S BEHAVIORAL HEALTH; Future escitalopram oxalate (LEXAPRO) 10 mg tablet; Take 1 tablet by mouth once daily. Discussed option for treatment today and will start with Lexapro. Reviewed risks vs benefits and information given on with Lexapro. Concerned about possible nausea when starting medication, zofran given for relief if needed Follow up in 2 weeks Resources given for counseling and discussed recommendation with patient. Bernarda Patiño APRN.[facility]01-28-2025 History of Present illness Narrative* Bernarda Patiño APRN.[facility] - 09/30/2024 1:23 PM EST Hugo Tyson is a 19 year old female who presents for problem visit Depression: High Risk (09/30/2024) [place] Depression Scale Last EPDS Total Score: 11 Last EPDS Self Harm Result: Never Feeling she has OCD. Rasining with herself to get things done. Constant thoughts taht something might be wrong with her and worrying for no reason. Has fear of throwing up and feels she thinks she is not eating as much as she should be. Feels she is constantly worrying that something will go wrong. Has good support from her mother and friends. Father of baby is not involved at this time. Denies any thoughts of self harm, SI/HI or thoughts of harming others. 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 History Comments: Sexual Activity: Yes; Male Contraception: No contraception data on record PAST MEDICAL HISTORY Diagnosis Date Asthma Depression Generalized anxiety disorder PAST SURGICAL HISTORY Procedure Laterality Date NONE FAMILY HISTORY Problem Relation Age of Onset No Known Problems Mother No Known Problems Father No Known Problems Brother No Known Problems Maternal Grandmother Heart disease Maternal Grandfather No Known Problems Paternal Grandmother No Known Problems Paternal Grandfather Social History Tobacco Use Smoking status: Never Passive exposure: Never Smokeless tobacco: Never Vaping Use Vaping status: Never Used Substance Use Topics Alcohol use: Never Drug use: Never Current Outpatient Medications Medication Sig Norethindrone, Contraceptive, 0.35 mg tablet Take 1 tablet by mouth once daily. Breast Pump Use as directed hydrOXYzine pamoate (VISTARIL) 25 mg capsule Take 25 mg by mouth three times a day as needed. 25/iron fum/folic/dha (-1 ORAL) Take by mouth once daily. fluticasone (FLONASE ALLERGY RELIEF) 50 mcg/actuation nasal spray Use 1 [place] in each nostril once daily. albuterol HFA (PROAIR HFA) 90 mcg/actuation inhaler Inhale 2 Puffs as instructed every 6 hours as needed. ferrous sulfate (SLOW FE) 137 mg (45 mg iron) TbER Take 1 tablet by mouth every other day. (Patientnot taking: Reported on 05/28/2024) No current facility-administered medications for this visit. Allergies As of Date: 09/30/2024 (No Known Allergies) Fully Assessed 09/30/2024 REVIEW OF SYSTEMS Abdomen: No bloating, early satiety, indigestion, or increased flatulence. No abdominal pain, nausea, vomiting, diarrhea, or constipation. Bladder: No dysuria, gross hematuria, urinary frequency, urinary urgency, or incontinence. Breast: No breast lumps, nipple d/c, overlying skin changes, redness or skin retraction. Expanded ROS: N/A Allergies and current medication updated:Yes SENSITIVE EXAM: Sensitive exam not performed. EXAM: BP 112/62 Wt 130 lb (59.0kg) LMP 07/30/2023 GENERAL: pleasant, female in no apparent distress HEENT: Normocephalic and atraumatic NECK: Supple and full range of motion DERMATOLOGY: Normal and without lesions CHEST: Normal inspiratory effort NEURO: alert and oriented x3,exam grossly non-focal EXTREMITIES: normal ASSESSMENT AND PLAN: Assessment & Plan Malaise and fatigue Orders: THYROID STIMULATING HORMONE; Future T4 FREE/FREE THYROXINE; Future VITAMIN D 25 HYDROXY; Future CONSULT TO WOMEN'S BEHAVIORAL HE[facility]; Future Generalized anxiety disorder Orders: THYROID STIMULATING HORMONE; Future T4 FREE/FREE THYROXINE; Future VITAMIN D 25 HYDROXY; Future CONSULT TO WOMEN'S BEHAVIORAL HE[facility]; Future escitalopram oxalate (LEXAPRO) 10 mg tablet; Take 1 tablet by mouth once daily. Discussed option for treatment today and will start with Lexapro. Reviewed risks vs benefits and information given on with Lexapro. Concerned about possible nausea when starting medication, zofran given for relief if needed Follow up in 2 weeks Resources given for counseling and discussed recommendation with patient. Bernarda Patiño APRN.CNM [facility] NoteHNO ID: [id number] Author: TRSIH HURTADO PA Service: ? Author Type: Physician Manager Transportation Type: Progress Notes Filed: 06/28/2024 14:22 Note Text: This note was created using [employer]. Beulah Tyson is a 19 year old female. HPI 19-year-old female presents for sinus congestion, runny nose x 2 weeks. Patient has also had a little bit of sore throat, mild cough starting yesterday. Patient states that she has not had any fevers. No vomiting or diarrhea. Still eating and drinking. She did notice that she had 2 tonsil stones which dislodged themselves. Throat is doing better now. She is continuing with runny nose. She has not taken anything [id number] for symptoms. She has breast-feeding. PAST MEDICAL HISTORY Diagnosis Date Asthma Depression Generalized anxiety disorder PAST SURGICAL HISTORY Procedure Laterality Date NONE ALLERGIES Patient has no known allergies. MEDICATIONS Norethindrone, Contraceptive, 0.35 mg tablet Take 1 tablet by mouth once daily. Breast Pump Use as directed hydrOXYzine pamoate (VISTARIL) 25 mg capsule Take 25 mg by mouth three times a day as needed. 25/iron fum/folic/dha (-1 ORAL) Take by mouth once daily. fluticasone (FLONASE ALLERGY RELIEF) 50 mcg/actuation nasal spray Use 1 [place] in each nostril once daily. albuterol HFA (PROAIR HFA) 90 mcg/actuation inhaler Inhale 2 Puffs as instructed every 6 hours as needed. ferrous sulfate (SLOW FE) 137 mg (45 mg iron) TbER Take 1 tablet by mouth every other day. (Patient not taking: Reported on 05/28/2024) FAMILY HISTORY Problem Relation Age of Onset No Known Problems Mother No Known Problems Father No Known Problems Brother No Known Problems Maternal Grandmother Heart disease Maternal Grandfather No Known Problems Paternal Grandmother No Known Problems Paternal Grandfather Social History Tobacco Use Smoking status: Never Passive exposure: Never Smokeless tobacco: Never Vaping Use Vaping status: Never Used Substance Use Topics Alcohol use: Never Drug use: Never Review of Systems Constitutional: Negative for chills and fever. HENT: Positive for congestion, rhinorrhea and sore throat. Negative for ear pain. Respiratory: Positive for cough. Negative for shortness of breath. Cardiovascular: Negative for chest pain. Gastrointestinal: Negative for diarrhea and vomiting. Objective BP 107/73 Pulse 78 Temp 36.9 ?C (98.4 ?F) (Right Tympanic) Resp 16 Wt 64.2 kg (141 lb 8.6 oz) LMP 07/30/2023 (Approximate) SpO2 100% Yes BMI 25.89 kg/m? Physical Exam Vitals and nursing note reviewed. Constitutional: General: She is not in acute distress. Appearance: Normal appearance. She is not toxic-appearing. HENT: Right Ear: Tympanic membrane and ear canal normal. Left Ear: Tympanic membrane and ear canal normal. Nose: Mucosal edema and congestion present. Mouth/Throat: Mouth: Mucous membranes are moist. Eyes: Conjunctiva/sclera: Conjunctivae normal. Cardiovascular: Rate and Rhythm: Normal rate and regular rhythm. Pulmonary: Effort: Pulmonary effort is normal. Breath sounds: Normal breath sounds. Skin: General: Skin is warm and dry. Neurological: Mental Status: She is alert. Assessment and Plan ASSESSMENT/PLAN: 1. URI, acute - ICD9: 465.9, ICD10: J06.9 (primary diagnosis) - Discussed viral etiology and rationale for treatment. - Symptomatic treatment with prn analgesia - Supportive care with fluids and rest - COVID AND INFLUENZA A/B AND RSV PCR, ROUTINE -Out of window for antiviral, patient would like testing because she has a at home 2. Rhinosinusitis - ICD9: 473.9, ICD10: J32.9 - Will begin treatment with Augmentin 875 mg PO BID for 5 days - Supportive care with plenty of fluids, rest, and analgesia prn. Diagnosis and treatment plan were discussed and questions were answered to the patient's satisfaction. Pt acknowledged understanding of concepts and follow up plan. Specific signs and symptoms that would indicate the need for higher level of care were discussed in detail warranting prompt ER evaluation. Trish Hurtado [facility]10-26-2024 History of Present illness Narrative* Trish Hurtado PA - 06/28/2024 2:21 PM EDT This note was created using [employer]. Subjective Hugo Tyson is a 19 year old female. HPI 19-year-old female presents for sinus congestion, runny nose x 2 weeks. Patient has also had a little bit of sore throat, mild cough starting yesterday. Patient states that she has not had any fevers. No vomiting or diarrhea. Still eating and drinking. She did notice that she had 2 tonsil stones which dislodged themselves. Throat is doing better now. She is continuing with runny nose. She hasnot taken anything [id number] for symptoms. She has breast-feeding. PAST MEDICAL HISTORY Diagnosis Date Asthma Depression Generalized anxiety disorder PAST SURGICAL HISTORY Procedure Laterality Date NONE ALLERGIES Patient has no known allergies. MEDICATIONS Norethindrone, Contraceptive, 0.35 mg tablet Take 1 tablet by mouth once daily. Breast Pump Use as directed hydrOXYzine pamoate (VISTARIL) 25 mg capsule Take 25 mg by mouth three times a day as needed. 25/iron fum/folic/dha (-1 ORAL) Take by mouth once daily. fluticasone (FLONASE ALLERGY RELIEF) 50 mcg/actuation nasal spray Use 1 [place] in each nostril once daily. albuterol HFA (PROAIR HFA) 90 mcg/actuation inhaler Inhale 2 Puffs as instructed every 6 hours as needed. ferrous sulfate (SLOW FE) 137 mg (45 mg iron) TbER Take 1 tablet by mouth every other day. (Patientnot taking: Reported on 05/28/2024) FAMILY HISTORY Problem Relation Age of Onset No Known Problems Mother No Known Problems Father No Known Problems Brother No Known Problems Maternal Grandmother Heart disease Maternal Grandfather No Known Problems Paternal Grandmother No Known Problems Paternal Grandfather Social History Tobacco Use Smoking status: Never Passive exposure: Never Smokeless tobacco: Never Vaping Use Vaping status: Never Used Substance Use Topics Alcohol use: Never Drug use: Never Review of Systems Constitutional: Negative for chills and fever. HENT: Positive for congestion, rhinorrhea and sore throat. Negative for ear pain. Respiratory: Positive for cough. Negative for shortness of breath. Cardiovascular: Negative for chest pain. Gastrointestinal: Negative for diarrhea and vomiting. Objective BP 107/73 Pulse 78 Temp 36.9 C (98.4 F) (Right Tympanic) Resp 16 Wt 64.2 kg (141 lb 8.6 oz) LMP 07/30/2023 (Approximate) SpO2 100% Yes BMI 25.89 kg/m Physical Exam Vitals and nursing note reviewed. Constitutional: General: She is not in acute distress. Appearance: Normal appearance. She is not toxic-appearing. HENT: Right Ear: Tympanic membrane and ear canal normal. Left Ear: Tympanic membrane and ear canal normal. Nose: Mucosal edema and congestion present. Mouth/Throat: Mouth: Mucous membranes are moist. Eyes: Conjunctiva/sclera: Conjunctivae normal. Cardiovascular: Rate and Rhythm: Normal rate and regular rhythm. Pulmonary: Effort: Pulmonary effort is normal. Breath sounds: Normal breath sounds. Skin: General: Skin is warm and dry. Neurological: Mental Status: She is alert. Assessment and Plan ASSESSMENT/PLAN: 1. URI, acute - ICD9: 465.9, ICD10: J06.9 (primary diagnosis) - Discussed viral etiology and rationale for treatment. - Symptomatic treatment with prn analgesia - Supportive care with fluids and rest - COVID & INFLUENZA A/B & RSV PCR, ROUTINE -Out of window for antiviral, patient would like testing because she has a at home 2. Rhinosinusitis - ICD9: 473.9, ICD10: J32.9 - Will begin treatment with Augmentin 875 mg PO BID for 5 days - Supportive care with plenty of fluids, rest, and analgesia prn. Diagnosis and treatment plan were discussed and questions were answered to the patient's satisfaction. Pt acknowledged understanding of concepts and follow up plan. Specific signs and symptoms that would indicate the need for higher level of care were discussed in detail warranting prompt ER evaluation. FANTA Landis [facility]10-[facility]24 NoteHNO ID: [id number] Author: BERNARDA PATIÑO APRN.CNM Service: ? Author Type: Registered Phlebotomist Part Time Type: Progress Notes Filed: 07/04/2024 18:55 Note Text: Grinding Wheel Facer offered: Patient declines. VISIT Hugo Tyson is a 19 year old year old here for visit. Delivery Summary: Date: 05/17/2026 Sex: M Name: Kevan Weight: 7# 15oz Outcome: Anesthesia: Epidural Delivered by: CEDRIC Perineal repair: N/A ROS/ Recovery: Feeding: Breast feeding problems: None Menses since delivery: None Menstrual pattern prior to : Regular periods [place] since delivery: Not resumed Having issue with nipple pain, sharp and white tips. Depression: denies symptoms of depression. OB Depression and Anxiety Screening- This Encounter (since 06/24/2024) Over the past 2 weeks have you felt down, depressed, or hopeless? Negative Over the past two weeks, have you felt little interest or pleasure in doing things?? Negative Feeling nervous, anxious or on edge 0-Not at all Not being able to stop or control worrying 0-Not al all Anxiety Pre-Screening Total (If >/= 3 additional questions will be reviewed) 0 Emotional support: Yes Bowel symptoms: Negative for abdominal discomfort, blood in stools or black stools Abdomen: N/A Bladder symptoms: No dysuria, gross hematuria, urinary frequency, urinary urgency, or incontinence Other issues: None Last Pap: N/A HPV: N/A PAST MEDICAL HISTORY Diagnosis Date Asthma Depression Generalized anxiety disorder PAST SURGICAL HISTORY Procedure Laterality Date NONE FAMILY HISTORY Problem Relation Age of Onset No Known Problems Mother No Known Problems Father No Known Problems Brother No Known Problems Maternal Grandmother Heart disease Maternal Grandfather No Known Problems Paternal Grandmother No Known Problems Paternal Grandfather Social History Tobacco Use Smoking status: Never Passive exposure: Never Smokeless tobacco: Never Vaping Use Vaping status: Never Used Substance Use Topics Alcohol use: Never Drug use: Never PHYSICAL EXAMINATION: SENSITIVE EXAM: The sensitive examination was discussed with the Patient or Patient's Authorized Python Programmer. As applicable, any other physician, advance practice provider, medical student, or other health professional student that will be observing or involved in the sensitive examination for educational or training purposes was discussed with the Patient or Authorized Python Programmer. The Patient or Authorized Python Programmer has agreed to proceed with the sensitive examination. (Sensitive examination includes inspection and/or palpation of the breasts, pelvis, prostate and anorectal regions). BP 112/74 Wt 141 lb (64.0kg) LMP 07/30/2023 GENERAL: pleasant, female in no apparent distress HEENT: Normocephalic, atraumatic, mucus membranes moist, and no lesions NECK: Supple, full range of motion, no adenopathy, and thyroid normal DERMATOLOGY: Normal, without lesions, non-icteric, and non-hirsute BREAST: soft, non-tender, symmetric, no dominant mass, normal nipple-areolar complex, no lymphadenopathy, and no nipple discharge CHEST: Normal inspiratory effort ABDOMEN: soft, non-tender, and no masses. INCISION: No incisional redness, swelling, or drainage PELVIC: external genitalia normal, normal Bartholin's glands, urethra, Geddes's glands, no vulvar lesions, no cervical lesions, good vaginal support, physiologic discharge present, normal appearing perineal body and perianal region BIMANUAL: uterus normal size, shape and consistency, no adnexal masses, and non-tender NEURO: alert and oriented x3,exam grossly non-focal EXTREMITIES: normal ASSESSMENT AND PLAN: 19 year old status post with normal course. Contraception plan: Oral contraceptives I discussed with the patient the risks, benefits, mechanism of action and alternatives to combined hormonal contraceptive use. No medical contraindications. Reviewed risk of blood clot, stroke and heart attack with hormonal contraception. Reviewed warning signs ACHES. Discussed stopping control 4 weeks prior to scheduled surgery if will be immobile. I reviewed with her the administration options and when to start. Her questions were answered and she desired to start. Will treat with APNO, prescription sent to [facility] pharmacy and Diflucan 150mg PO once. If no improvement after two weeks can discuss possibility of reynaud's and treatment Follow up: RTC for annual exams and PRN Bernarda Patiño APRN.[facility]10-23-2024 History of Present illness Narrative* Bernarda Patiño APRN.[facility] - 06/25/2024 10:47 AM EDT Grinding Wheel Facer offered: Patient declines. VISIT Hugo Tyson is a 19 year old year old here for visit. Delivery Summary: Date: [birth year]24 Sex: M Name: Kevan Weight: 7# 15oz Outcome: Anesthesia: Epidural Delivered by: CEDRIC Perineal repair: N/A ROS/ Recovery: Feeding: Breast feeding problems: None Menses since delivery: None Menstrual pattern prior to : Regular periods [place] since delivery: Not resumed Having issue with nipple pain, sharp and white tips. Depression: denies symptoms of depression. OB Depression and Anxiety Screening- This Encounter (since 06/24/2024) Over the past 2 weeks have you felt down, depressed, or hopeless? Negative Over the past two weeks, have you felt little interest or pleasure in doing things? Negative Feeling nervous, anxious or on edge 0-Not at all Not being able to stop or control worrying 0-Not al all Anxiety Pre-Screening Total (If >/= 3 additional questions will be reviewed) 0 Emotional support: Yes Bowel symptoms: Negative for abdominal discomfort, blood in stools or black stools Abdomen: N/A Bladder symptoms: No dysuria, gross hematuria, urinary frequency, urinary urgency, or incontinence Other issues: None Last Pap: N/A HPV: N/A PAST MEDICAL HISTORY Diagnosis Date Asthma Depression Generalized anxiety disorder PAST SURGICAL HISTORY Procedure Laterality Date NONE FAMILY HISTORY Problem Relation Age of Onset No Known Problems Mother No Known Problems Father No Known Problems Brother No Known Problems Maternal Grandmother Heart disease Maternal Grandfather No Known Problems Paternal Grandmother No Known Problems Paternal Grandfather Social History Tobacco Use Smoking status: Never Passive exposure: Never Smokeless tobacco: Never Vaping Use Vaping status: Never Used Substance Use Topics Alcohol use: Never Drug use: Never PHYSICAL EXAMINATION: SENSITIVE EXAM: The sensitive examination was discussed with the Patient or Patient's Authorized Python Programmer. As applicable, any other physician, advance practice provider, medical student, or other health professional student that will be observing or involved in the sensitive examination for educational or training purposes was discussed with the Patient or Authorized Python Programmer. The Patient or Authorized Python Programmer has agreed to proceed with the sensitive examination. (Sensitive examination includes inspection and/or palpation of the breasts, pelvis, prostate and anorectal regions). BP 112/74 Wt 141 lb (64.0kg) LMP 07/30/2023 GENERAL: pleasant, female in no apparent distress HEENT: Normocephalic, atraumatic, mucus membranes moist, and no lesions NECK: Supple, full range of motion, no adenopathy, and thyroid normal DERMATOLOGY: Normal, without lesions, non-icteric, and non-hirsute BREAST: soft, non-tender, symmetric, no dominant mass, normal nipple-areolar complex, no lymphadenopathy, and no nipple discharge CHEST: Normal inspiratory effort ABDOMEN: soft, non-tender, and no masses. INCISION: No incisional redness, swelling, or drainage PELVIC: external genitalia normal, normal Bartholin's glands, urethra, Geddes's glands, no vulvar lesions, no cervical lesions, good vaginal support, physiologic discharge present, normal appearing perineal body and perianal region BIMANUAL: uterus normal size, shape and consistency, no adnexal masses, and non-tender NEURO: alert and oriented x3,exam grossly non-focal EXTREMITIES: normal ASSESSMENT AND PLAN: 19 year old status post with normal course. Contraception plan: Oral contraceptives I discussed with the patient the risks, benefits, mechanismof action and alternatives to combined hormonal contraceptive use. No medical contraindications. Reviewed risk of blood clot, stroke and heart attack with hormonal contraception. Reviewed warning signs ACHES. Discussed stopping control 4 weeks prior to scheduled surgery if will be immobile.I reviewed with her the administration options and when to start. Her questions were answered and she desired to start. Will treat with APNO, prescription sent to [facility] pharmacy and Diflucan 150mg PO once. If no improvement after two weeks can discuss possibility of reynaud's and treatment Follow up: RTC for annual exams and PRN Bernarda Patiño APRN.CNM [facility]10-07-[facility] History of Present illness Narrative* Ines Galvan RDMS - 06/09/2024 10:00 AM EDT Radiology Service Progress Note PATIENT NAME: Hugo Tyson DATE OF SERVICE: June 09, 2024 TIME: 10:32 AM PATIENT IDENTITY VERIFICATION COMPLETED USING TWO (2) IDENTIFIERS: Name and Date of confirmedby patient verbally. FALL SCREENING: Has the patient had 2 falls in the last year or 1 fall with injury or currently using an Ambulatory Assistive Device (Walker, Cane, Wheelchair, Crutches, etc.)? No PATIENT GENDER DATA: Female. status: : No status: NO. PATIENT RELEVANT IMPLANT DATA REVIEWED: Not Applicable PATIENT PRESENTS WITH AN IMPLANTABLE OR ATTACHED STILL CLEANER TUBE: No RADIOLOGY DEPARTMENT: Ultrasound PERIPHERAL IV DATA: Not applicable SIGNED BY: Ines Galvan RDMS June 09, 2024 10:32 AM documented in this encounterPe[facility]10-07-2024 NoteHNO ID: [id number] Author: INES GALVAN RDMS Service: ? Author Type: Pack Master Type: Progress Notes Filed: 06/09/2024 10:32 Note Text: Radiology Service Progress Note PATIENT NAME: Hugo Tyson DATE OF SERVICE: June 09, 2024 TIME: 10:32 AM PATIENT IDENTITY VERIFICATION COMPLETED USING TWO (2) IDENTIFIERS: Name and Date of confirmed by patient verbally. FALL SCREENING: Has the patient had 2 falls in the last year or 1 fall with injury or currently using an Ambulatory Assistive Device (Walker, Cane, Wheelchair, Crutches, etc.)? No PATIENT GENDER DATA: Female. status: : No status: NO. PATIENT RELEVANT IMPLANT DATA REVIEWED: Not Applicable PATIENT PRESENTS WITH AN IMPLANTABLE OR ATTACHED STILL CLEANER TUBE: No RADIOLOGY DEPARTMENT: Ultrasound PERIPHERAL IV DATA: Not applicable SIGNED BY: Ines Galvan RDMS June 09, 2024 10:32 [facility]09-25-2024 NoteHNO ID: [id number] Author: EMILEE ALFONSO MD Service: ? Author Type: Physician Type: Progress Notes Filed: 05/28/2024 11:04 Note Text: EARLY VISIT Hugo Tyson is a 19 year old here for 1 week visit. Pt c/o RUQ pain since begging of - rated pain 8/9 states now pain less but pain is still there but only on palpation- pain rated 3/4 on scale. Delivery Summary: Sex: Male Weight: 7# 15oz Outcome: Anesthesia: Epidural Delivered by: Bernarda Patiño Perineal repair: N/A Other lacerations: N/A ROS: General: Denies any fever or chills Hypertension Screening: Headache? No. Visual Changes? No Epigastric Pain? No Increased Swelling? No Taking any BP medications at home? No If applicable, monitoring BP at home? (If Yes, include results) NA Mood: normal Depression: denies symptoms of depression. OB Depression and Anxiety Screening- This Encounter (since 05/27/2024) Over the past 2 weeks have you felt down, depressed, or hopeless? Negative Over the past two weeks, have you felt little interest or pleasure in doing things?? Negative Feeling nervous, anxious or on edge 0-Not at all Not being able to stop or control worrying 0-Not al all Anxiety Pre-Screening Total (If >/= 3 additional questions will be reviewed) 0 Feeding: Breast feeding problems: None Bladder: No dysuria, gross hematuria, urinary frequency, urinary urgency, or incontinence Bowel symptoms: Negative for abdominal discomfort, blood in stools or black stools and change in bowel habits Abdomen: N/A Bleeding: spotting, light flow Bottom and Perineum: No issues Sleep: no sleep concerns, feels rested [place] since delivery: Not resumed Emotional support: Yes Exercise: N/A Other issues: None SENSITIVE EXAM: Sensitive exam not performed. PHYSICAL EXAMINATION: Wt 63 kg (139 lb) LMP 07/30/2023 (Approximate) Yes BMI 25.42 kg/m? General: pleasant,female in no apparent distress, AANDO x 3. Skin warm and intact. Breast: Deferred Abdomen: ++ tenderness on deep palpation in RUQ/Incision: N/A Pelvic: Deferred Bimanual: Deferred ASSESSMENT AND PLAN: (R10.11) Abdominal pain, RUQ (primary encounter diagnosis) (Z39.0) care and examination immediately after delivery 19 year old status post with normal course. Contraception plan: not applicable. Reinforced 6-week pelvic rest. Encouraged condom usage should patient deviate. Education: resources provided - see MA/RN note RUQ us and LFTs ordered Follow up: Return to Clinic for 6 week visit and as needed Emilee Koenig [facility]09-25-2024 History of Present illness Narrative* Emilee Alfonso MD - 05/28/2024 10:35 AM EDT EARLY VISIT Hugo Tyson is a 19 year old here for 1 week visit. Pt c/o RUQ pain since begging of - rated pain 8/9 states now pain less but pain is still there but only on palpation- pain rated 3/4 on scale. Delivery Summary: Sex: Male Weight: 7# 15oz Outcome: Anesthesia: Epidural Delivered by: Bernarda Patiño Perineal repair: N/A Other lacerations: N/A ROS: General: Denies any fever or chills Hypertension Screening: Headache? No. Visual Changes? No Epigastric Pain? No Increased Swelling? No Taking any BP medications at home? No If applicable, monitoring BP at home? (If Yes, include results) NA Mood: normal Depression: denies symptoms of depression. OB Depression and Anxiety Screening- This Encounter (since 05/27/2024) Over the past 2 weeks have you felt down, depressed, or hopeless? Negative Over the past two weeks, have you felt little interest or pleasure in doing things? Negative Feeling nervous, anxious or on edge 0-Not at all Not being able to stop or control worrying 0-Not al all Anxiety Pre-Screening Total (If >/= 3 additional questions will be reviewed) 0 Feeding: Breast feeding problems: None Bladder: No dysuria, gross hematuria, urinary frequency, urinary urgency, or incontinence Bowel symptoms: Negative for abdominal discomfort, blood in stools or black stools and change in bowel habits Abdomen: N/A Bleeding: spotting, light flow Bottom and Perineum: No issues Sleep: no sleep concerns, feels rested [place] since delivery: Not resumed Emotional support: Yes Exercise: N/A Other issues: None SENSITIVE EXAM: Sensitive exam not performed. PHYSICAL EXAMINATION: Wt 63 kg (139 lb) LMP 07/30/2023 (Approximate) Yes BMI 25.42 kg/m General: pleasant,female in no apparent distress, A&O x 3. Skin warm and intact. Breast: Deferred Abdomen: ++ tenderness on deep palpation in RUQ/Incision: N/A Pelvic: Deferred Bimanual: Deferred ASSESSMENT AND PLAN: (R10.11) Abdominal pain, RUQ (primary encounter diagnosis) (Z39.0) care and examination immediately after delivery 19 year old status post with normal course. Contraception plan: not applicable. Reinforced 6-week pelvic rest. Encouraged condom usage should patient deviate. Education: resources provided - see MA/RN note RUQ us and LFTs ordered Follow up: Return to Clinic for 6 week visit and as needed Emilee Koenig MD [facility] NoteHNO ID: [id number] Author: PAU HOUSTON RN Service: ? Author Type: Registered Nurse Type: Progress Notes Filed: 05/19/2024 09:29 Note Text: Patient delivered via at [facility] on 05/17/24 per Bernarda Patiño CNM . See OB Outcome note. [facility] History of Present illness Narrative* aPu Houston RN - 05/19/2024 9:22 AM EDT Patient delivered via at [facility] on 05/17/24 per Bernarda Patiño CNM . See OB Outcome note. Pau Houston RN documented in this encounterPeoples [facility]09-13-2024 Progress note* Quick Notes - Emilee Alfonso MD - 05/16/2024 4:15 PM EDT The sensitive examination was discussed with the Patient or Patient's Authorized Python Programmer. Asapplicable, any other physician, advance practice provider, medical student, or other health professional student that will be observing or involved in the sensitive examination for educational or training purposes was discussed with the Patient or Authorized Python Programmer. The Patient or Authorized Python Programmer has agreed to proceed with the sensitive examination. (Sensitive examination includes inspection and/or palpation of the breasts, pelvis, prostate and anorectal regions) DM-Pt doing well. Denies vaginal Bleeding, Leaking fluid, or regular Contractions. Pt reports good movement Physical Exam: Gen: female in no apparent distress Abd: soft, Gravid. Non tender to palpation. See flow sheet @ 39.4 weeks Assessment & Plan Encounter for supervision of normal first in third trimester Anemia during in third trimester Maternal iron deficiency anemia complicating , third trimester 39 weeks gestation of Orders: URINE OB DIP B/O membrane sweep per patient request Labor and kick count reviewed Emilee Koenig MD [facility] Miscellaneous Notes* Quick Notes - Emilee Alfonso MD - 05/16/2024 4:15 PM EDT The sensitive examination was discussed with the Patient or Patient's Authorized Python Programmer. Asapplicable, any other physician, advance practice provider, medical student, or other health professional student that will be observing or involved in the sensitive examination for educational or training purposes was discussed with the Patient or Authorized Python Programmer. The Patient or Authorized Python Programmer has agreed to proceed with the sensitive examination. (Sensitive examination includes inspection and/or palpation of the breasts, pelvis, prostate and anorectal regions) DM-Pt doing well. Denies vaginal Bleeding, Leaking fluid, or regular Contractions. Pt reports good movement Physical Exam: Gen: female in no apparent distress Abd: soft, Gravid. Non tender to palpation. See flow sheet @ 39.4 weeks Assessment & Plan Encounter for supervision of normal first in third trimester Anemia during in third trimester Maternal iron deficiency anemia complicating , third trimester 39 weeks gestation of Orders: URINE OB DIP B/O membrane sweep per patient request Labor and kick count reviewed Emilee Koenig MD documented in this encounterPe[facility]09-13-2024 Instructions* Patient Instructions* Niecy Mesa MA - 05/16/2024 3:49 PM EDT SEQUENTIAL SCREENINGS [facility] offers sequential screenings for women who are interested in screenings for chromosomal abnormalities and certain defects during a . The sequential screen combinesultrasound and blood tests to determine the risk of chromosomal abnormalities, including Down's Syndrome (Trisomy 21) and Trisomy 18, as well as open neural tube defects including spina bifida. Ultrasound examination is performed between 11 weeks and 13 weeks gestational age. Blood tests are drawn after the ultrasound and again later in the between 15 and 21 weeks gestational age. Please let your physician know if you are interested in this testing. It will require an appointment withour solar thermal technician. This is not an ultrasound performed by a physician in our office during a routine visit. SIGNS AND SYMPTOMS OF LABOR 1. Contractions every 10 minutes or more often 2. Clear, pink, or brownish fluid (water) leaking from vagina 3. Feeling that baby is pushing down, pressure 4. Low, dull backache 5. Cramps that feel like a period 6. Cramps with or without diarrhea If you notice any of the above symptoms, contact our office at [phone] and ask to speak with anurse. After hours, you can call doctors registry at [phone] OR call [facility] at [phone] ask to have the doctor credit control assistant paged. If you consider this an emergency, dial 9-1-8 or go to your nearest emergency department. NEED HELP? Are you dealing with a violent or abusive relationship? Are you a victim of rape or sexual assult? Call [facility] ([place]) 24 hour Crisis Hotline: 474.602.9029 or 106-030-5099. MANUAL Your Guide to a Healthy manual is now on-line. Visit [email or web address] to download your free copy documented in this encounterPeoples Hospital09-12-2024 Telephone encounter Note * Telephone Encounter - Shawn Sewell MD - 05/15/2024 8:17 AM EDT Rx sent [facility] Miscellaneous Notes* Telephone Encounter - Shawn Sewell MD - 05/15/2024 8:17 AM EDT Rx sent * Telephone Encounter - Pau Houston RN - 05/12/2024 2:19 PM EDT [facility] called. They are not able to get the 50 mg Slow release iron. Asking if the 45 mg can be given instead. Will either need to call [facility] or send in new RX. Thank you. Pau Houston RN documented in this encounterPeoples [facility]09-09-2024 Telephone encounter Note * Telephone Encounter - Pau Houston RN - 05/12/2024 2:19 PM EDT [facility] called. They are not able to get the 50 mg Slow release iron. Asking if the 45 mg can be given instead. Will either need to call [facility] or send in new RX. Thank you. Pau [place] RN [facility]09-06-[facility] Progress note* Quick Notes - Shawn Sewell MD - 05/09/2024 5:58 PM EDT SW- pt doing well. No pain, vb, lof. Good FM. Palpitations at times and she attributes it to her anxiety. She is able to calm herself down during these episodes and she feels better. Denies Cp, SOB, pre syncope, syncope PE: Gen- NAD, well appearing Abd- Soft, gravid, NT See flowsheet A/p 38 wk gestation - Palpitations: Encouraged hydration and discussed reasons to call - RTO 1 wk Shawn Sewell DO [facility]09-[facility] Miscellaneous Notes* Quick Notes - Shawn Sewell MD - 05/09/2024 5:58 PM EDT SW- pt doing well. No pain, vb, lof. Good FM. Palpitations at times and she attributes it to her anxiety. She is able to calm herself down during these episodes and she feels better. Denies Cp, SOB, pre syncope, syncope PE: Gen- NAD, well appearing Abd- Soft, gravid, NT See flowsheet A/p 38 wk gestation - Palpitations: Encouraged hydration and discussed reasons to call - RTO 1 wk Shawn Sewell DO documented in this encounterPe[facility] Hospital09-06-2024 Instructions* Patient Instructions* Hanny Lo LPN - 05/09/2024 3:44 PM EDT SEQUENTIAL SCREENINGS [facility] offers sequential screenings for women who are interested in screenings for chromosomal abnormalities and certain defects during a . The sequential screen combinesultrasound and blood tests to determine the risk of chromosomal abnormalities, including Down's Syndrome (Trisomy 21) and Trisomy 18, as well as open neural tube defects including spina bifida. Ultrasound examination is performed between 11 weeks and 13 weeks gestational age. Blood tests are drawn after the ultrasound and again later in the between 15 and 21 weeks gestational age. Please let your physician know if you are interested in this testing. It will require an appointment withour solar thermal technician. This is not an ultrasound performed by a physician in our office during a routine visit. SIGNS AND SYMPTOMS OF LABOR 1. Contractions every 10 minutes or more often 2. Clear, pink, or brownish fluid (water) leaking from vagina 3. Feeling that baby is pushing down, pressure 4. Low, dull backache 5. Cramps that feel like a period 6. Cramps with or without diarrhea If you notice any of the above symptoms, contact our office at [phone] and ask to speak with anurse. After hours, you can call doctors registry at [phone] OR call [facility] at [phone] ask to have the doctor credit control assistant paged. If you consider this an emergency, dial 9-1-1 or go to your nearest emergency department. NEED HELP? Are you dealing with a violent or abusive relationship? Are you a victim of rape or sexual assult? Call [facility] ([place]) 24 hour Crisis Hotline: 121.169.2099 or 183-250-5044. MANUAL Your Guide to a Healthy manual is now on-line. Visit [email or web address] to download your free copy documented in this encounterPeoples Hospital08-30-2024 Progress note* Quick Notes - Shawn Sewell MD - 05/02/2024 4:48 PM EDT SW- No ctx, vb, lof. Good FM PE: Gen- NAD, well appearing Abd- Soft, gravid, NT See flowsheet A/p 37 wk gestation - Labor precautions reviewed - Breast pump rx - Anemia: Repeat CBC ordered - Weekly visits Shawn Sewell DO [facility]08-30-[facility] Miscellaneous Notes* Quick Notes - Shawn Sewell MD - 05/02/2024 4:48 PM EDT SW- No ctx, vb, lof. Good FM PE: Gen- NAD, well appearing Abd- Soft, gravid, NT See flowsheet A/p 37 wk gestation - Labor precautions reviewed - Breast pump rx - Anemia: Repeat CBC ordered - Weekly visits Shawn Sewell DO documented in this encounterPeoples Hospital08-30-2024 Instructions* Patient Instructions* Niecy Mesa MA - 05/02/2024 4:24 PM EDT SEQUENTIAL SCREENINGS [facility] offers sequential screenings for women who are interested in screenings for chromosomal abnormalities and certain defects during a . The sequential screen combinesultrasound and blood tests to determine the risk of chromosomal abnormalities, including Down's Syndrome (Trisomy 21) and Trisomy 18, as well as open neural tube defects including spina bifida. Ultrasound examination is performed between 11 weeks and 13 weeks gestational age. Blood tests are drawn after the ultrasound and again later in the between 15 and 21 weeks gestational age. Please let your physician know if you are interested in this testing. It will require an appointment withour solar thermal technician. This is not an ultrasound performed by a physician in our office during a routine visit. SIGNS AND SYMPTOMS OF LABOR 1. Contractions every 10 minutes or more often 2. Clear, pink, or brownish fluid (water) leaking from vagina 3. Feeling that baby is pushing down, pressure 4. Low, dull backache 5. Cramps that feel like a period 6. Cramps with or without diarrhea If you notice any of the above symptoms, contact our office at [phone] and ask to speak with anurse. After hours, you can call doctors registry at [phone] OR call [facility] at [phone] ask to have the doctor credit control assistant paged. If you consider this an emergency, dial 91-4 or go to your nearest emergency department. NEED HELP? Are you dealing with a violent or abusive relationship? Are you a victim of rape or sexual assult? Call [facility] ([place]) 24 hour Crisis Hotline: 867.724.8332 or 133-134-6438. MANUAL Your Guide to a Healthy manual is now on-line. Visit [email or web address] to download your free copy documented in this encounterPeoples Hospital08-23-2024 Progress note* Quick Notes - Lacy Mcwilliams APRN.KILN OPERATOR HELPER - 04/25/2024 3:52 PM EDT EH - S: Jane is a 19 year old female who presents at 36w4d for a routine visit. Feeling movement. Denies headache, visual changes, chest pain, shortness of breath, vaginal bleeding, leakage offluid, or dysuria. Asking for CE today. O: See flow sheet Gen: No apparent distress Abd: Gravid, nontender, S=D ASSESSMENT/PLAN: 1. Encounter for supervision of normal first in third trimester - ICD9: V22.0, ICD10: Z34.03 (primary diagnosis) - Concerned about nausea during labor. Reviewed available nausea medications during labor. 2. 36 weeks gestation of - ICD9: V22.2, ICD10: Z3A.36 - GBS today - Bedside ultrasound confirms cephalic 3. Anemia during in third trimester - ICD9: 648.23, ICD10: O99.013 9.3 at 35 weeks. Finished with IVFE. Vitamin B12 and folate ordered. B12 and folate WNL. 4. 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 - Patient has not had known genital herpes in her lifetime, but very anxious about spreading to infant. - Previously discussed option of suppression therapy - patient would like 36 week suppression therapy. Rx has been sent. - Has been taking Acyclovir PTL precautions and kick counts reviewed. RTO in 1 week or sooner as needed. Lacy Mcwilliams APRN.KILN OPERATOR HELPER [facility]08-[facility] Miscellaneous Notes* Quick Notes - Lacy Mcwilliams APRN.KILN OPERATOR HELPER - 04/25/2024 3:52 PM EDT EH - S: Jane is a 19 year old female who presents at 36w4d for a routine visit. Feeling movement. Denies headache, visual changes, chest pain, shortness of breath, vaginal bleeding, leakage offluid, or dysuria. Asking for CE today. O: See flow sheet Gen: No apparent distress Abd: Gravid, nontender, S=D ASSESSMENT/PLAN: 1. Encounter for supervision of normal first in third trimester - ICD9: V22.0, ICD10: Z34.03 (primary diagnosis) - Concerned about nausea during labor. Reviewed available nausea medications during labor. 2. 36 weeks gestation of - ICD9: V22.2, ICD10: Z3A.36 - GBS today - Bedside ultrasound confirms cephalic 3. Anemia during in third trimester - ICD9: 648.23, ICD10: O99.013 9.3 at 35 weeks. Finished with IVFE. Vitamin B12 and folate ordered. B12 and folate WNL. 4. 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 - Patient has not had known genital herpes in her lifetime, but very anxious about spreading to infant. - Previously discussed option of suppression therapy - patient would like 36 week suppression therapy. Rx has been sent. - Has been taking Acyclovir PTL precautions and kick counts reviewed. RTO in 1 week or sooner as needed. Lacy Mcwilliams APRN.KILN OPERATOR HELPER documented in this encounterPeoples Hospital08-23-2024 Instructions* Patient Instructions* Ashutosh Montelongo MA - 04/25/2024 3:46 PM EDT SEQUENTIAL SCREENINGS [facility] offers sequential screenings for women who are interested in screenings for chromosomal abnormalities and certain defects during a . The sequential screen combinesultrasound and blood tests to determine the risk of chromosomal abnormalities, including Down's Syndrome (Trisomy 21) and Trisomy 18, as well as open neural tube defects including spina bifida. Ultrasound examination is performed between 11 weeks and 13 weeks gestational age. Blood tests are drawn after the ultrasound and again later in the between 15 and 21 weeks gestational age. Please let your physician know if you are interested in this testing. It will require an appointment withour solar thermal technician. This is not an ultrasound performed by a physician in our office during a routine visit. SIGNS AND SYMPTOMS OF LABOR 1. Contractions every 10 minutes or more often 2. Clear, pink, or brownish fluid (water) leaking from vagina 3. Feeling that baby is pushing down, pressure 4. Low, dull backache 5. Cramps that feel like a period 6. Cramps with or without diarrhea If you notice any of the above symptoms, contact our office at [phone] and ask to speak with anurse. After hours, you can call doctors registry at [phone] OR call [facility] at [phone] ask to have the doctor credit control assistant paged. If you consider this an emergency, dial [phone]- or go to your nearest emergency department. NEED HELP? Are you dealing with a violent or abusive relationship? Are you a victim of rape or sexual assult? Call [facility] 24 hour Crisis Hotline: 507.729.2806 or 195-971-0678. MANUAL Your Guide to a Healthy manual is now on-line. Visit [email or web address] to download your free copy documented in this encounterPeoples Hospital08-09-2024 Instructions* Patient Instructions* Marlin Kinney LPN - 04/11/2024 3:53 PM EDT SEQUENTIAL SCREENINGS [facility] offers sequential screenings for women who are interested in screenings for chromosomal abnormalities and certain defects during a . The sequential screen combinesultrasound and blood tests to determine the risk of chromosomal abnormalities, including Down's Syndrome (Trisomy 21) and Trisomy 18, as well as open neural tube defects including spina bifida. Ultrasound examination is performed between 11 weeks and 13 weeks gestational age. Blood tests are drawn after the ultrasound and again later in the between 15 and 21 weeks gestational age. Please let your physician know if you are interested in this testing. It will require an appointment withour solar thermal technician. This is not an ultrasound performed by a physician in our office during a routine visit. SIGNS AND SYMPTOMS OF LABOR 1. Contractions every 10 minutes or more often 2. Clear, pink, or brownish fluid (water) leaking from vagina 3. Feeling that baby is pushing down, pressure 4. Low, dull backache 5. Cramps that feel like a period 6. Cramps with or without diarrhea If you notice any of the above symptoms, contact our office at [phone] and ask to speak with anurse. After hours, you can call doctors registry at [phone] OR call [facility] at [phone] ask to have the doctor credit control assistant paged. If you consider this an emergency, dial 05-04- or go to your nearest emergency department. NEED HELP? Are you dealing with a violent or abusive relationship? Are you a victim of rape or sexual assult? Call [facility] [place] ([facility] 24 hour Crisis Hotline: 621.962.4694 or 579-867-8574. MANUAL Your Guide to a Healthy manual is now on-line. Visit [email or web address] to download your free copy documented in this encounterPeoples Hospital08-09-2024 Miscellaneous Notes* Quick Notes - Lacy Mcwilliams APRN.CNP - 04/11/2024 3:45 PM EDT EH - S: Hugo is a 19 year old female who presents at 34w4d for a routine visit. Feeling movement. Denies headache, visual changes, chest pain, shortness of breath, vaginal bleeding, leakage of fluid, or dysuria. Feeling well, no complaints. O: See flow sheet Gen: No apparent distress Abd: Gravid, nontender, S=D ASSESSMENT/PLAN: 1. Encounter for supervision of normal first in third trimester - ICD9: V22.0, ICD10: Z34.03 (primary diagnosis) - Mood stable 2. 34 weeks gestation of - ICD9: V22.2, ICD10: Z3A.34 - GBS next visit at 36 weeks 3. Anemia during in third trimester - ICD9: 648.23, ICD10: O99.013 - On IV Fe - Repeat CBC 4. 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 - Patient has not had known genital herpes in her lifetime, but very anxious about spreading to . - Discussed option of suppression therapy - patient would like 36 week suppression therapy. Rx sent. PTL precautions and kick counts reviewed. RTO in 2 weeks or sooner as needed. Lacy Mcwilliams APRN.CORY documented in this encounterPeoples Hospital08-09-2024 Progress note* Quick Notes - Lacy Mcwilliams APRN.CNP - 04/11/2024 3:45 PM EDT EH - S: Hugo is a 19 year old female who presents at 34w4d for a routine visit. Feeling movement. Denies headache, visual changes, chest pain, shortness of breath, vaginal bleeding, leakage of fluid, or dysuria. Feeling well, no complaints. O: See flow sheet Gen: No apparent distress Abd: Gravid, nontender, S=D ASSESSMENT/PLAN: 1. Encounter for supervision of normal first in third trimester - ICD9: V22.0, ICD10: Z34.03 (primary diagnosis) - Mood stable 2. 34 weeks gestation of - ICD9: V22.2, ICD10: Z3A.34 - GBS next visit at 36 weeks 3. Anemia during in third trimester - ICD9: 648.23, ICD10: O99.013 - On IV Fe - Repeat CBC 4. 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 - Patient has not had known genital herpes in her lifetime, but very anxious about spreading to . - Discussed option of suppression therapy - patient would like 36 week suppression therapy. Rx sent. PTL precautions and kick counts reviewed. RTO in 2 weeks or sooner as needed. Lacy Mcwilliams APRN.KILN OPERATOR HELPER [facility]07-25-[facility] Telephone encounter Note* Telephone Encounter - Mitch Naidu - 03/27/2024 1:36 PM EDT 1st time treatment report-The pt is being seen for a non-cancer related dx. No oncology regimen (Venofer) No assistance available for insured patients. No FN assessment needed at this time. [facility] Miscellaneous Notes* Telephone Encounter - Mitch Naidu - 03/27/2024 1:36 PM EDT 1st time treatment report-The pt is being seen for a non-cancer related dx. No oncology regimen (Venofer) No assistance available for insured patients. No FN assessment needed at this time. documented in this encounterPeoples Hospital07-25-2024 Progress note* Quick Notes - Rodney Leon MD - 03/27/2024 11:17 AM EDT RR- VB No. LOF No. CTXS No. Movement: present. Other c/o: No. Medication list reviewed. Physical Exam See Flow Sheet Abd: soft, nontender, gravid Ext: edema: Trace A/P 32w3d Estimated Date of Delivery: 05/19/24 cont. pNV. Problem List Items Addressed This Visit anemia- on iv fe f/u in 2 weeks or prn Rodney Leon M.D. [facility]07-25-2024 Miscellaneous Notes* Quick Notes - Rodney Leon MD - 03/27/2024 11:17 AM EDT RR- VB No. LOF No. CTXS No. Movement: present. Other c/o: No. Medication list reviewed. Physical Exam See Flow Sheet Abd: soft, nontender, gravid Ext: edema: Trace A/P 32w3d Estimated Date of Delivery: 05/19/24 cont. pNV. Problem List Items Addressed This Visit anemia- on iv fe f/u in 2 weeks or prn Rodney Leon M.D. documented in this encounterPeoples Hospital07-25-2024 Instructions* Patient Instructions* Urszula Knowles LPN - 03/27/2024 10:57 AM EDT SEQUENTIAL SCREENINGS [facility] offers sequential screenings for women who are interested in screenings for chromosomal abnormalities and certain defects during a . The sequential screen combinesultrasound and blood tests to determine the risk of chromosomal abnormalities, including Down's Syndrome (Trisomy 21) and Trisomy 18, as well as open neural tube defects including spina bifida. Ultrasound examination is performed between 11 weeks and 13 weeks gestational age. Blood tests are drawn after the ultrasound and again later in the between 15 and 21 weeks gestational age. Please let your physician know if you are interested in this testing. It will require an appointment withour solar thermal technician. This is not an ultrasound performed by a physician in our office during a routine visit. SIGNS AND SYMPTOMS OF LABOR 1. Contractions every 10 minutes or more often 2. Clear, pink, or brownish fluid (water) leaking from vagina 3. Feeling that baby is pushing down, pressure 4. Low, dull backache 5. Cramps that feel like a period 6. Cramps with or without diarrhea If you notice any of the above symptoms, contact our office at [phone] and ask to speak with anurse. After hours, you can call doctors registry at [phone] OR call [facility] at [phone] ask to have the doctor credit control assistant paged. If you consider this an emergency, dial --1 or go to your nearest emergency department. NEED HELP? Are you dealing with a violent or abusive relationship? Are you a victim of rape or sexual assult? Call [facility] ([place]) 24 hour Crisis Hotline: 708.960.2974 or 528-891-7898. MANUAL Your Guide to a Healthy manual is now on-line. Visit [email or web address] to download your free copy [facility] Tele[facility] encounter Note * Telephone Encounter - Lena Ring - 03/19/2024 9:02 AM EDT Called patient and scheduled as directed [facility] Miscellaneous Notes* Telephone Encounter - Lena Ring - 03/19/2024 9:02 AM EDT Called patient and scheduled as directed * Telephone Encounter - Mercedes Medina LPN - 03/18/2024 2:52 PM EDT Orders are in, please schedule per Taylor Medina LPN * Telephone Encounter - Tara Casas - 03/18/2024 2:42 PM EDT Please review and advise. * Telephone Encounter - Kathleen Glasgow - 03/18/2024 2:31 PM EDT Patient needs to start scheduling Iron Infusions per Dr. Osorio and Dr. Leon. Told patient she would receive a call to get these infusions scheduled. documented in this encounterPe[facility]07-[facility]24 Telephone encounter Note * Telephone Encounter - Mercedes Medina LPN - 03/18/2024 2:52 PM EDT Orders are in, please schedule per Taylor Medina LPN [facility] Telephone encounter Note* Telephone Encounter - Tara Casas - 03/18/2024 2:42 PM EDT Please review and advise. [facility] Work Phone: [phone]) 495-789807-16-2024 Telephone encounter Note* Telephone Encounter - Kathleen Glasgow - 03/18/2024 2:31 PM EDT Patient needs to start scheduling Iron Infusions per Dr. Osorio and Dr. Leon. Told patient she would receive a call to get these infusions scheduled. [facility] Progress note* Quick Notes - Leeroy Osorio MD - 03/18/2024 2:28 PM EDT KJ - VB No. LOF No. CTXS No. Movement: present. Other c/o: No. Medication list reviewed. Physical Exam See Flow Sheet Gen: no accute distress, well appearing Abd: soft, nontender, gravid A/P 31w1d Estimated Date of Delivery: 05/19/24 Anemia - schedule iron infusions PTL precautions reviewed, Kick counts reviewed. Leeroy Osorio MD [facility]07-16[facility] Miscellaneous Notes* Quick Notes - Leeroy Osorio MD - 03/18/2024 2:28 PM EDT KJ - VB No. LOF No. CTXS No. Movement: present. Other c/o: No. Medication list reviewed. Physical Exam See Flow Sheet Gen: no accute distress, well appearing Abd: soft, nontender, gravid A/P 31w1d Estimated Date of Delivery: 05/19/24 Anemia - schedule iron infusions PTL precautions reviewed, Kick counts reviewed. Leeroy Osorio MD documented in this encounterPeoples Hospital07-16-2024 Instructions* Patient Instructions* Niecy Mesa MA - 03/18/2024 2:07 PM EDT SEQUENTIAL SCREENINGS [facility] offers sequential screenings for women who are interested in screenings for chromosomal abnormalities and certain defects during a . The sequential screen combinesultrasound and blood tests to determine the risk of chromosomal abnormalities, including Down's Syndrome (Trisomy 21) and Trisomy 18, as well as open neural tube defects including spina bifida. Ultrasound examination is performed between 11 weeks and 13 weeks gestational age. Blood tests are drawn after the ultrasound and again later in the between 15 and 21 weeks gestational age. Please let your physician know if you are interested in this testing. It will require an appointment withour solar thermal technician. This is not an ultrasound performed by a physician in our office during a routine visit. SIGNS AND SYMPTOMS OF LABOR 1. Contractions every 10 minutes or more often 2. Clear, pink, or brownish fluid (water) leaking from vagina 3. Feeling that baby is pushing down, pressure 4. Low, dull backache 5. Cramps that feel like a period 6. Cramps with or without diarrhea If you notice any of the above symptoms, contact our office at [phone] and ask to speak with anurse. After hours, you can call doctors registry at [phone] OR call [facility] at [phone] ask to have the doctor credit control assistant paged. If you consider this an emergency, dial 9-3-6 or go to your nearest emergency department. NEED HELP? Are you dealing with a violent or abusive relationship? Are you a victim of rape or sexual assult? Call [facility] ([place]) 24 hour Crisis Hotline: 396.126.8747 or 484-399-5243. MANUAL Your Guide to a Healthy manual is now on-line. Visit [email or web address] to download your free copy documented in this encounterPeoples Hospital07-12-2024 NoteHNO ID: [id number] Author: GISELLA GRIJALVA RN Service: ? Author Type: Registered Nurse Type: Progress Notes Filed: 03/14/2024 11:22 Note Text: Patient referred to Blood Management for evaluation and treatment of pre-surgical anemia and/or iron deficiency. Non-surgical: anemia in Date of surgery: NA Medical/Surgical History: PAST MEDICAL HISTORY Diagnosis Date Asthma Depression Generalized anxiety disorder PAST SURGICAL HISTORY Procedure Laterality Date NONE Other significant Medical/Surgical history: - None Current Outpatient Medications Medication Sig hydrOXYzine pamoate (VISTARIL) 25 mg capsule Take 25 mg by mouth. ondansetron (ZOFRAN) 4 mg tablet Take 1 tablet by mouth every 8 hours as needed for nausea/vomiting. 25/iron fum/folic/dha (-1 ORAL) Take by mouth once daily. fluticasone (FLONASE ALLERGY RELIEF) 50 mcg/actuation nasal spray Use 1 [place] in each nostril once daily. albuterol HFA (PROAIR HFA) 90 mcg/actuation inhaler Inhale 2 Puffs as instructed every 6 hours as needed. No current facility-administered medications for this visit. Current medications that may affect iron absorption and/or blood loss: - None Baseline laboratory values: WBC (k/uL) Date Value 02/28/2024 12.51 (H) RBC (m/uL) Date Value 02/28/2024 3.06 (L) Hemoglobin (g/dL) Date Value 02/28/2024 9.3 (L) Hematocrit (%) Date Value 02/28/2024 27.2 (L) MCV (fL) Date Value 02/28/2024 88.9 MCH (pg) Date Value 02/28/2024 30.4 MCHC (g/dL) Date Value 02/28/2024 34.2 RDW-CV (%) Date Value 02/28/2024 12.8 Platelet Count (k/uL) Date Value 02/28/2024 249 MPV (fL) Date Value 02/28/2024 10.5 Iron Date Value Ref Range Status 02/28/2024 35 (L) 41 - 186 ug/dL Final TIBC Date Value Ref Range Status 02/28/2024 505 (H) 232 - 386 ug/dL Final Ferritin Date Value Ref Range Status 02/28/2024 10.4 (L) 14.7 - 205.1 ng/mL Final Transferrin Saturation Date Value Ref Range Status 02/28/2024 6.9 (L) 15.0 - 57.0 % Final Assess for the need to augment a patient?s natural red blood cell production: - Blood transfusion avoidance - Iron depletion Recommendations according to Blood Management patient care guidelines: - Iron Sucrose 200 mg, IV infusion, dose(s) 4 total iron deficit using ganzoni equation = 753 mg (pre- wt 62 kg/goal hgb 11 g/dL) Clinical information is sent to a provider for review and evaluation for treatment.[facility]07-12-2024 History of Present illness Narrative* Gisella Grijalva RN - 03/14/2024 11:18 AM EDT Patient referred to Blood Management for evaluation and treatment of pre- surgical anemia and/or iron deficiency. Non-surgical: anemia in Date of surgery: NA Medical/Surgical History: PAST MEDICAL HISTORY Diagnosis Date Asthma Depression Generalized anxiety disorder PAST SURGICAL HISTORY Procedure Laterality Date NONE Other significant Medical/Surgical history: - None Current Outpatient Medications Medication Sig hydrOXYzine pamoate (VISTARIL) 25 mg capsule Take 25 mg by mouth. ondansetron (ZOFRAN) 4 mg tablet Take 1 tablet by mouth every 8 hours as needed for nausea/vomiting. 25/iron fum/folic/dha (-1 ORAL) Take by mouth once daily. fluticasone (FLONASE ALLERGY RELIEF) 50 mcg/actuation nasal spray Use 1 [place] in each nostril once daily. albuterol HFA (PROAIR HFA) 90 mcg/actuation inhaler Inhale 2 Puffs as instructed every 6 hours as needed. No current facility-administered medications for this visit. Current medications that may affect iron absorption and/or blood loss: - None Baseline laboratory values: WBC (k/uL) Date Value 02/28/2024 12.51 (H) RBC (m/uL) Date Value 02/28/2024 3.06 (L) Hemoglobin (g/dL) Date Value 02/28/2024 9.3 (L) Hematocrit (%) Date Value 02/28/2024 27.2 (L) MCV (fL) Date Value 02/28/2024 88.9 MCH (pg) Date Value 02/28/2024 30.4 MCHC (g/dL) Date Value 02/28/2024 34.2 RDW-CV (%) Date Value 02/28/2024 12.8 Platelet Count (k/uL) Date Value 02/28/2024 249 MPV (fL) Date Value 02/28/2024 10.5 Iron Date Value Ref Range Status 02/28/2024 35 (L) 41 - 186 ug/dL Final TIBC Date Value Ref Range Status 02/28/2024 505 (H) 232 - 386 ug/dL Final Ferritin Date Value Ref Range Status 02/28/2024 10.4 (L) 14.7 - 205.1 ng/mL Final Transferrin Saturation Date Value Ref Range Status 02/28/2024 6.9 (L) 15.0 - 57.0 % Final Assess for the need to augment a patient s natural red blood cell production: - Blood transfusion avoidance - Iron depletion Recommendations according to Blood Management patient care guidelines: - Iron Sucrose 200 mg, IV infusion, dose(s) 4 total iron deficit using ganzoni equation = 753 mg (pre- wt 62 kg/goal hgb 11 g/dL) Clinical information is sent to a provider for review and evaluation for treatment. documented in this encounterPe[facility] Hospital06-28-2024 Telephone encounter Note * Telephone Encounter - Pau Houston RN - 02/29/2024 11:06 AM EDT Please file pending Blood Management referral. Thank you. Pau Houston RN [facility] Miscellaneous Notes* Telephone Encounter - Pau Houston RN - 02/29/2024 11:06 AM EDT Please file pending Blood Management referral. Thank you. Pau Houston RN * Telephone Encounter - Pau Houston RN - 02/29/2024 11:04 AM EDT ----- Message from Rodney Leon MD sent at 02/29/2024 10:42 AM EDT ----- labs are normal other than anemia. Hasn't tolerated PO fe. Low fe. Needs IVFE. Please set up for this. See my chart message. documented in this encounterPe[facility] Hospital06-28-2024 Telephone encounter Note * Telephone Encounter - Pau Houston RN - 02/29/2024 11:04 AM EDT ----- Message from Rodney Leon MD sent at 02/29/2024 10:42 AM EDT ----- labs are normal other than anemia. Hasn't tolerated PO fe. Low fe. Needs IVFE. Please set up for this. See my chart message. [facility]06-27[facility]2024 NoteHNO ID: [id number] Author: MARLIN PETERSON LPN Service: ? Author Type: LICENSED NURSE Type: Progress Notes Filed: 02/28/2024 14:27 Note Text: Patient identified by name and date of . Hugo Tyson presents today for a vaccination of Tdap. Patient denies an allergy to latex: yes Patient denies a severe (life-threatening) allergy to a previous dose of Tdap, DTP, DTaP, DT or Td vaccine. Yes Patient denies history of epilepsy or neurological problems: Yes Patient is afebrile and denies being moderately or severely ill: Yes Patient denies history of Guillain-Alexandria Syndrome (a severe paralytic illness): Yes Tdap Adacel injection was given without incident. See immunizations for details of immunizations administered today. VIS sheet provided: Yes Provider Rodney Leon MD was present in office at time of injection. [facility] History of Present illness Narrative* Marlin Peterson LPN - 02/28/2024 1:53 PM EDT Patient identified by name and date of . Hugo Welchrivasiveth presents today for a vaccination of Tdap. Patient denies an allergy to latex: yes Patient denies a severe (life-threatening) allergy to a previous dose of Tdap, DTP, DTaP, DT or Td vaccine. Yes Patient denies history of epilepsy or neurological problems: Yes Patient is afebrile and denies being moderately or severely ill: Yes Patient denies history of Guillain-Alexandria Syndrome (a severe paralytic illness): Yes Tdap Adacel injection was given without incident. See immunizations for details of immunizations administered today. VIS sheet provided: Yes Provider Rodney Leon MD was present in office at time of injection. Marlin Peterson LPN documented in this encounterPeoples Hospital06-27-2024 Progress note* Quick Notes - Rodney Leon MD - 02/28/2024 1:40 PM EDT RR- VB No. LOF No. CTXS No. Movement: present. Other c/o: No. Medication list reviewed. Physical Exam See Flow Sheet Abd: soft, nontender, gravid Ext: edema: Trace A/P 28w3d Estimated Date of Delivery: 05/19/24 28 week labs today anemia- recheck fe levels today, cont. PNV, hasn't tolerated po fe plans , info on classes and child classes given declines LARC, plans [facility] TDAP offered and accepts c/o pain in upper abdomen when moving- uncertain if musculoskeletal vs GI, d/w her symptomatic measures Rodney Leon M.D. [facility]06-27-2024 Miscellaneous Notes* Quick Notes - Rodney Leon MD - 02/28/2024 1:40 PM EDT RR- VB No. LOF No. CTXS No. Movement: present. Other c/o: No. Medication list reviewed. Physical Exam See Flow Sheet Abd: soft, nontender, gravid Ext: edema: Trace A/P 28w3d Estimated Date of Delivery: 05/19/24 28 week labs today anemia- recheck fe levels today, cont. PNV, hasn't tolerated po fe plans , info on classes and child classes given declines LARC, plans [employer] TDAP offered and accepts c/o pain in upper abdomen when moving- uncertain if musculoskeletal vs GI, d/w her symptomatic measures Rodney Leon M.D. documented in this encounterPeoples Hospital06-27-2024 Instructions* Patient Instructions* Jeanie Ham MA - 02/28/2024 1:31 PM EDT SEQUENTIAL SCREENINGS [facility] offers sequential screenings for women who are interested in screenings for chromosomal abnormalities and certain defects during a . The sequential screen combinesultrasound and blood tests to determine the risk of chromosomal abnormalities, including Down's Syndrome (Trisomy 21) and Trisomy 18, as well as open neural tube defects including spina bifida. Ultrasound examination is performed between 11 weeks and 13 weeks gestational age. Blood tests are drawn after the ultrasound and again later in the between 15 and 21 weeks gestational age. Please let your physician know if you are interested in this testing. It will require an appointment withour solar thermal technician. This is not an ultrasound performed by a physician in our office during a routine visit. SIGNS AND SYMPTOMS OF LABOR 1. Contractions every 10 minutes or more often 2. Clear, pink, or brownish fluid (water) leaking from vagina 3. Feeling that baby is pushing down, pressure 4. Low, dull backache 5. Cramps that feel like a period 6. Cramps with or without diarrhea If you notice any of the above symptoms, contact our office at [phone] and ask to speak with anurse. After hours, you can call doctors registry at [phone] OR call [facility] at [phone] ask to have the doctor credit control assistant paged. If you consider this an emergency, dial 9-1-1 or go to your nearest emergency department. NEED HELP? Are you dealing with a violent or abusive relationship? Are you a victim of rape or sexual assult? Call [facility] ([place]) 24 hour Crisis Hotline: 695.456.2723 or 220-428-9339. MANUAL Your Guide to a Healthy manual is now on-line. Visit [email or web address] to download your free copy documented in this encounterPe[facility] Hospital05-28-2024 Progress note* Quick Notes - Rodney Leon MD - 01/29/2024 4:24 PM EDT RR- VB No. LOF No. CTXS No. Movement: present. Other c/o: No. Pain on her side has improved Medication list reviewed. Physical Exam See Flow Sheet Abd: soft, nontender, gravid Ext: edema: Trace A/P 24w1d Estimated Date of Delivery: 05/19/24 Labs: 28 week labs next visit anemia- on PNV and fe, check fe studies next visit. Cont. oral fe. f/u in 4 weeks or prn h/o BV, finish flagyl rx Rodney Leon M.D. [facility]05-28-2024 Miscellaneous Notes* Quick Notes - Rodney Leon MD - 01/29/2024 4:24 PM EDT RR- VB No. LOF No. CTXS No. Movement: present. Other c/o: No. Pain on her side has improved Medication list reviewed. Physical Exam See Flow Sheet Abd: soft, nontender, gravid Ext: edema: Trace A/P 24w1d Estimated Date of Delivery: 05/19/24 Labs: 28 week labs next visit anemia- on PNV and fe, check fe studies next visit. Cont. oral fe. f/u in 4 weeks or prn h/o BV, finish flagyl rx Rodney Leon M.D. documented in this encounterPeoples Hospital05-28-2024 Instructions* Patient Instructions* Sabine Claire MA - 01/29/2024 4:07 PM EDT SEQUENTIAL SCREENINGS [facility] offers sequential screenings for women who are interested in screenings for chromosomal abnormalities and certain defects during a . The sequential screen combinesultrasound and blood tests to determine the risk of chromosomal abnormalities, including Down's Syndrome (Trisomy 21) and Trisomy 18, as well as open neural tube defects including spina bifida. Ultrasound examination is performed between 11 weeks and 13 weeks gestational age. Blood tests are drawn after the ultrasound and again later in the between 15 and 21 weeks gestational age. Please let your physician know if you are interested in this testing. It will require an appointment withour solar thermal technician. This is not an ultrasound performed by a physician in our office during a routine visit. SIGNS AND SYMPTOMS OF LABOR 1. Contractions every 10 minutes or more often 2. Clear, pink, or brownish fluid (water) leaking from vagina 3. Feeling that baby is pushing down, pressure 4. Low, dull backache 5. Cramps that feel like a period 6. Cramps with or without diarrhea If you notice any of the above symptoms, contact our office at [phone] and ask to speak with anurse. After hours, you can call doctors registry at [phone] OR call [facility] at [phone] ask to have the doctor credit control assistant paged. If you consider this an emergency, dial 05-04-1 or go to your nearest emergency department. NEED HELP? Are you dealing with a violent or abusive relationship? Are you a victim of rape or sexual assult? Call [facility] ([place]) 24 hour Crisis Hotline: 516.198.4109 or 262-966-4325. MANUAL Your Guide to a Healthy manual is now on-line. Visit [email or web address] to download your free copy documented in this encounterPeoples Hospital05-23-2024 Telephone encounter Note * Telephone Encounter - Cherry Moss RN - 01/24/2024 4:52 PM EDT Patient notified of results, verbalizes understanding of instructions. Cherry Moss RN [facility]05-23-2024 Miscellaneous Notes* Telephone Encounter - Cherry Moss RN - 01/24/2024 4:52 PM EDT Patient notified of results, verbalizes understanding of instructions. Cherry Chana, RN * Telephone Encounter - Pau Houston RN - 01/24/2024 9:14 AM EDT Left message for patient to call office. Pau Houston RN * Telephone Encounter - Pau Houston RN - 01/24/2024 9:14 AM EDT ----- Message from Emilee Hannah MD sent at 01/24/2024 9:07 AM EDT ----- Notify patient that her culture came back as + for bacteria that is common with BV as well- will treat with flagyl due to her having some symptoms. documented in this encounterPeoples Hospital05-23-2024 Telephone encounter Note * Telephone Encounter - Pau Houston RN - 01/24/2024 9:14 AM EDT Left message for patient to call office. Pau Houston RN [facility]05-23-2024 Telephone encounter Note* Telephone Encounter - Pau Houston RN - 01/24/2024 9:14 AM EDT ----- Message from Emilee Hannah MD sent at 01/24/2024 9:07 AM EDT ----- Notify patient that her culture came back as + for bacteria that is common with BV as well- will treat with flagyl due to her having some symptoms. [facility]-20[facility] Progress note* Quick Notes - Emilee Alfonso MD - 01/21/2024 2:10 PM EDT DM- pt seen for Right sided pain. Pt reports worse when up and moving around at work, feels like a pulling sensation and uncomfortable. Pt reports no vaginal bleeding or leaking fluid. Pain better when laying down. No N/V or fevers. Pt reports had UTI 2 weeks ago and took medication for it, wants to make sure that is gone . Exam: Gen: female in NAD Abd: gravid, non tender to palpation A/p: @ 23 weeks 1) 28 week labs ordered 2) Maternity belt reviewed 3) PO water intake reviewed 4) Relief measures reviewed 5) call if worsening pain 6) urine culture Emilee Koenig MD . [facility] Miscellaneous Notes* Quick Notes - Emilee Alfonso MD - 01/21/2024 2:10 PM EDT DM- pt seen for Right sided pain. Pt reports worse when up and moving around at work, feels like a pulling sensation and uncomfortable. Pt reports no vaginal bleeding or leaking fluid. Pain better when laying down. No N/V or fevers. Pt reports had UTI 2 weeks ago and took medication for it, wants to make sure that is gone . Exam: Gen: female in NAD Abd: gravid, non tender to palpation A/p: @ 23 weeks 1) 28 week labs ordered 2) Maternity belt reviewed 3) PO water intake reviewed 4) Relief measures reviewed 5) call if worsening pain 6) urine culture Emilee Koenig MD . documented in this encounterPeoples Hospital05-20-2024 Instructions* Patient Instructions* Niecy Mesa MA - 01/21/2024 1:42 PM EDT SEQUENTIAL SCREENINGS [facility] offers sequential screenings for women who are interested in screenings for chromosomal abnormalities and certain defects during a . The sequential screen combinesultrasound and blood tests to determine the risk of chromosomal abnormalities, including Down's Syndrome (Trisomy 21) and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 documented in this encounterPeoples Hospital11-07-2023 Instructions* Patient Instructions* Michael Stern APRN.KILN OPERATOR HELPER - 07/10/2023 11:25 AM EST How to Manage Common Symptoms Associated with COVID for Adults Fever- Fever is a temperature over 100.4 F and can occur when the body is fighting an infection. Tohelp treat a fever: Drink plenty of fluids and stay well hydrated. Eat small amounts of easy to digest food. Rest. Your body needs rest to recover, but getting up and moving around the house frequently is a good idea. You should try to continue doing your normal daily activities (bathing, toileting, grooming, cooking), though you will probably feel tired, and need to rest often. Avoid any heavy activity or exercise, as this will increase your body temperature. Dress in light clothing and stay covered in a light sheet. Keep the room temperature cool. Take a slightly warm (not cold or cool) bath, or apply damp washcloths to the forehead and wrists. Cough- Cough is a common symptom associated with COVID and can be bothersome. To help treat a cough: Stay well hydrated. Try warm water or tea with lemon and/or honey to help soothe the cough. Use a humidifier to add moisture to the air. Try a product with menthol, like a cough drop or a rub for your chest such as Vicks, which can helpreduce cough. Try cough drops. Avoid smoking and other strong odors or perfumes. Try breathing exercises to keep your lungs open and clear. Take a big deep breath through your noseand hold for 5 seconds before slowly releasing. Repeat frequently, while you are awake. Congestion- Runny nose or nasal congestion can occur with COVID. Treatment can help relieve symptoms: Try OTC nasal saline spray, or nasal saline rinse to relieve mucus congestion. Nasal strips can help keep nasal passages open, to increase airflow. Elevating your head with an extra pillow in bed can help reduce congestion. Using a humidifier can increase moisture in the air, and make breathing easier. Sore Throat- Another common symptom with COVID, can be managed at home by: Stay well hydrated. Gargle with salt water - mix teaspoon salt with 1 cup of warm water and gargle. This helps to loosen mucus in the back of the throat and may reduce discomfort. Try ice chips, popsicles or lozenges to soothe the throat. Nausea/Vomiting/Diarrhea- These are common symptoms, and staying hydrated is most important. If you are nauseous or vomiting, start with small sips of water every 10-15 minutes and increase astolerated. You can try sucking an ice cube too. If tolerating, you can try pedialyte or Gatorade, or flat sprite or nilam-ashley. Start slowly and increase as you are able to. Instead of meals, try smaller, more frequent snacks. Try eating bland foods like crackers, toast, rice, and applesauce. Avoid spicy, greasy or fried foods and dairy containing foods. Even if you aren't feeling hungry due to lack of smell or taste, it is important to try to take in some food when you are able. After drinking and eating, rest in an upright position for up to two hours as needed to help decrease nauseous feelings. Try closing your eyes, avoid moving and watching TV. Avoid strong odors that can make you feel more nauseated. When to seek emergency medical attention Look for emergency warning signs for COVID-19. If having any of these symptoms, seek emergency medical care immediately: Trouble breathing Persistent pain or pressure in the chest New confusion Inability to wake or stay awake Bluish lips or face *This list is not all possible symptoms. Please call your medical provider for any other symptoms that are severe or concerning to you. [facility] History of Present illness Narrative* Michael Stern APRN.CNP - 07/10/2023 11:14 AM EST Subjective HPI Nontoxic-appearing female presents to urgent care with chief complaint of upper respiratory tract like infection. Duration of symptoms 3 days. Associated symptoms sore throat, nasal congestion, nasaldischarge and nonproductive cough. Patient denies the use of any gjfb-tfl-qxwzdkr medications or home remedies for symptom management. Patient states recent sick contacts with similar signs and symptoms. Patient denies any productive cough, fever, chest pain, shortness of breath, pleuritic pain, rash, abdominal pain, nausea, vomiting or change in bowel or bladder habit. Denies chance of . Is not breast-feeding. Past medical history prescription medication use allergies reviewed. .Patient presents with: Sinus Problem: Congestion, pain, sore throat, headache runny nose x 3 days History reviewed. No pertinent past medical history. History reviewed. No pertinent surgical history. ALLERGIES Patient has no known allergies. MEDICATIONS albuterol HFA (PROAIR HFA) 90 mcg/actuation inhaler Inhale 2 Puffs as instructed every 6 hours as needed. norgestimate 0.25 mg-ethinyl estradiol 35 mcg (SPRINTEC) 0.25-35 mg-mcg per tablet Take 1 tablet bymouth once daily. (Patient not taking: Reported on 10/31/2022) fluticasone (FLONASE) 50 mcg/actuation nasal spray Use 2 Sprays in each nostril once daily. Rinse mouth after use. (Patient not taking: Reported on 03/18/2022 ) History reviewed. No pertinent family history. Social History Tobacco Use Smoking status: Never Smokeless tobacco: Never Substance Use Topics Alcohol use: Never Drug use: Never Review of Systems Constitutional: Positive for malaise/fatigue. Negative for chills and fever. HENT: Positive for congestion and sore throat. Negative for ear discharge, ear pain and sinus pain. Eyes: Negative for blurred vision, pain, discharge and redness. Respiratory: Positive for cough. Negative for hemoptysis, sputum production, shortness of breath, wheezing and stridor. Cardiovascular: Negative for chest pain. Gastrointestinal: Negative for abdominal pain, diarrhea, nausea and vomiting. Musculoskeletal: Positive for myalgias. Skin: Negative for itching and rash. Neurological: Positive for headaches. Negative for dizziness. Objective Physical Exam Constitutional: General: She is not in acute distress. Appearance: She is not diaphoretic. HENT: Head: Normocephalic. Jaw: No trismus, tenderness, swelling or pain on movement. Right Ear: Tympanic membrane, ear canal and external ear normal. Left Ear: Tympanic membrane, ear canal and external ear normal. Nose: Congestion present. Mouth/Throat: Lips: [place]. Mouth: Mucous membranes are moist. Pharynx: Oropharynx is clear. Uvula midline. No pharyngeal swelling, oropharyngeal exudate, posterior oropharyngeal erythema or uvula swelling. Tonsils: No tonsillar exudate or tonsillar abscesses. 2+ on the right. 2+ on the left. Eyes: Conjunctiva/sclera: Conjunctivae normal. Pupils: Pupils are equal, round, and reactive to light. Cardiovascular: Rate and Rhythm: Normal rate and regular rhythm. Heart sounds: Normal heart sounds. Pulmonary: Effort: Pulmonary effort is normal. No tachypnea, accessory muscle usage or respiratory distress. Breath sounds: Normal breath sounds. No stridor. No wheezing, rhonchi or rales. Abdominal: General: There is no distension. Palpations: Abdomen is soft. Tenderness: There is no abdominal tenderness. There is no guarding or rebound. Musculoskeletal: Cervical back: Normal range of motion and neck supple. No edema, erythema, rigidity or tenderness. No pain with movement. Normal range of motion. Lymphadenopathy: Cervical: Cervical adenopathy present. Skin: General: Skin is warm and dry. Neurological: Mental Status: She is alert and oriented to person, place, and time. ASSESSMENT/PLAN: 1. Sore throat - ICD9: 462, ICD10: J02.9 (primary diagnosis) - STREP A MOLECULAR (POC) - COVID & INFLUENZA A/B & RSV NAAT, ROUTINE 2. Viral illness - ICD9: 079.99, ICD10: B34.9 - COVID & INFLUENZA A/B & RSV NAAT, ROUTINE Strep test negative. No evidence of bacterial infection noted. Treat as viral etiology. COVID-19 test ordered. Treat accordingly to test results. Patient was educated on supportive therapies. Patientwill follow up with primary care provider as needed. Patient was instructed to immediately proceed to emergency room for any new, worsening, or symptoms lasting longer than anticipated. The patient'sclinical presentation is otherwise unremarkable at this time. Based on exam and clinical finding, the patient is stable for discharge. Plan of care was discussed with patient. Patient verbalizes understanding and agrees to plan of care. This note was generated using Option[employer] software. It may contain errors in wording, punctuation, or spelling. Michael tSern APRN.CORY [facility] History of Present illness Narrative* Michael Stern APRN.CNP - 06/18/2023 12:45 PM EDT Subjective HPI Nontoxic-appearing female presents urgent care accompanied by caregiver. Chief complaint sore throat swollen tonsils. Duration of symptoms 3 days. Associated symptoms listed above. Patient states shehas had some shortness of breath that has been more present over the last 2 weeks. History of asthma. Is out of her rescue inhaler. Additionally she has had an episode of dizziness today. Does not know if this was related to anxiety or not. Presents today for evaluation. No difficulty swallowing handling secretions decreased range of motion of neck. Denies any fever body aches chills productive cough chest pain shortness of breath pleuritic pain hemoptysis nausea vomiting abdominal pain change in bowel or bladder habits. Past medical history prescription medication use and allergies reviewed. .Patient presents with: Sore Throat: Sore throat swollen tonsils History reviewed. No pertinent past medical history. History reviewed. No pertinent surgical history. ALLERGIES Patient has no known allergies. MEDICATIONS fluticasone (FLONASE) 50 mcg/actuation nasal spray Use 2 Sprays in each nostril once daily. Rinse mouth after use. (Patient not taking: Reported on 03/18/2022 ) norgestimate 0.25 mg-ethinyl estradiol 35 mcg (SPRINTEC) 0.25-35 mg-mcg per tablet Take 1 tablet bymouth once daily. (Patient not taking: Reported on 10/31/2022) History reviewed. No pertinent family history. Social History Tobacco Use Smoking status: Never Smokeless tobacco: Never Substance Use Topics Alcohol use: Never Drug use: Never BP 112/78 Pulse 72 Temp 36.3 C (97.3 F) Resp 18 Wt 67.3 kg (148 lb 6.4 oz) LMP 08/07/2022 SpO2 100% Review of Systems Constitutional: Negative for chills, fever and malaise/fatigue. HENT: Positive for sore throat. Negative for congestion, ear discharge, ear pain and sinus pain. Eyes: Negative for blurred vision, pain, discharge and redness. Respiratory: Negative for cough, hemoptysis, sputum production, shortness of breath, wheezing and stridor. Cardiovascular: Negative for chest pain. Gastrointestinal: Negative for abdominal pain, diarrhea, nausea and vomiting. Musculoskeletal: Negative for myalgias. Skin: Negative for itching and rash. Neurological: Negative for dizziness and headaches. Objective Physical Exam Constitutional: General: She is not in acute distress. Appearance: She is not diaphoretic. HENT: Head: Normocephalic. Jaw: No trismus, tenderness, swelling or pain on movement. Mouth/Throat: Lips: [place]. Mouth: Mucous membranes are moist. Pharynx: Oropharynx is clear. Uvula midline. No pharyngeal swelling, oropharyngeal exudate or uvulaswelling. Tonsils: No tonsillar exudate or tonsillar abscesses. 2+ on the right. 2+ on the left. Eyes: Conjunctiva/sclera: Conjunctivae normal. Pupils: Pupils are equal, round, and reactive to light. Cardiovascular: Rate and Rhythm: Normal rate and regular rhythm. Heart sounds: Normal heart sounds. Pulmonary: Effort: Pulmonary effort is normal. No tachypnea, accessory muscle usage or respiratory distress. Breath sounds: Normal breath sounds. No stridor. No wheezing, rhonchi or rales. Abdominal: General: There is no distension. Palpations: Abdomen is soft. Tenderness: There is no abdominal tenderness. There is no guarding or rebound. Musculoskeletal: Cervical back: Normal range of motion and neck supple. No edema, erythema, rigidity or tenderness. No pain with movement. Normal range of motion. Lymphadenopathy: Cervical: No cervical adenopathy. Skin: General: Skin is warm and dry. Neurological: Mental Status: She is alert and oriented to person, place, and time. ASSESSMENT/PLAN: 1. Pharyngitis, unspecified etiology - ICD9: 462, ICD10: J02.9 - STREP A MOLECULAR (POC) - CONSULT TO ENT Strep test negative. Diagnosed with viral pharyngitis. Referral placed to ENT due to recurrent strep throat. Patient did have 1 episode of dizziness today. There was no LOC visual changes or difficulty walking. Patient was instructed if dizziness returns she needs to be seen in the ED for further evaluation care. Red flags prompt reevaluation discussed. Patient was educated on supportive therapies. Patient will follow up with primary care provider as needed. Patient was instructed to immediately proceed to emergency room for any new, worsening, or symptoms lasting longer than anticipated. Thepatient's clinical presentation is otherwise unremarkable at this time. Based on exam and clinical finding, the patient is stable for discharge. Plan of care was discussed with patient. Patient verbalizes understanding and agrees to plan of care. This note was generated using OptionEase software. It may contain errors in wording, punctuation, or spelling. Michael Stern APRN.KILN OPERATOR HELPER documented [facility]02[facility] History of Present illness Narrative* Ariana Randhawa PA-C - 10/31/2022 4:49 PM EST This note was created using [employer]. Subjective Hugo Tyson is a 17 year old female. HPI Presents with the chief complaint of cough and shortness of breath over the past 2 days. States today the shortness of breath got worse. She is also had a runny nose and sore throat. Her mom's been sick recently as well. No vomiting or diarrhea. Her chest does feel tight. She does have a history ofasthma. She did use her inhaler. Review of Systems Constitutional: Negative. HENT: Positive for congestion, rhinorrhea and sore throat. Negative for ear pain. Respiratory: Positive for cough, chest tightness and shortness of breath. Negative for wheezing. Cardiovascular: Negative. Gastrointestinal: Negative. Genitourinary: Negative. Musculoskeletal: Negative. All other systems reviewed and are negative. History reviewed. No pertinent past medical history. Current Outpatient Medications Medication Sig Dispense Refill predniSONE (DELTASONE) 20 mg tablet Take 2 tablets by mouth once daily for 5 days. 10 tablet 0 Wlvqlwwsenumtfi-Vvskisdct-IO (BROMFED DM) 2-30-10 mg/5 mL syrup Take 10 mL by mouth four times daily as needed. 200 mL 0 norgestimate 0.25 mg-ethinyl estradiol 35 mcg (SPRINTEC) 0.25-35 mg-mcg per tablet Take 1 tablet bymouth once daily. (Patient not taking: Reported on 10/31/2022) 84 tablet 3 Ictaivzslrufzuf-Jwybwumts-ZJ (BROMFED DM) 2-30-10 mg/5 mL syrup Take 10 mL by mouth four times daily as needed. (Patient not taking: Reported on 03/18/2022 ) 200 mL 0 fluticasone (FLONASE) 50 mcg/actuation nasal spray Use 2 Sprays in each nostril once daily. Rinse mouth after use. (Patient not taking: Reported on 03/18/2022 ) 1 Each 0 No current facility-administered medications for this visit. No past surgical history on file. No family history on file. Social History Tobacco Use Smoking status: Never Smokeless tobacco: Never Substance Use Topics Alcohol use: Never Drug use: Never Objective BP 118/78 Pulse 86 Temp 36.7 C (98 F) (Tympanic) Resp 16 Wt 67.1 kg (148 lb) LMP 08/07/2022 SpO2 98% Physical Exam Vitals reviewed. Constitutional: Appearance: Normal appearance. HENT: Head: Normocephalic and atraumatic. Right Ear: Tympanic membrane, ear canal and external ear normal. Left Ear: Tympanic membrane, ear canal and external ear normal. Nose: Congestion present. Mouth/Throat: Mouth: Mucous membranes are moist. Pharynx: Oropharynx is clear. Cardiovascular: Rate and Rhythm: Normal rate and regular rhythm. Heart sounds: Normal heart sounds. Pulmonary: Effort: Pulmonary effort is normal. Breath sounds: Normal breath sounds. Musculoskeletal: Cervical back: Neck supple. Skin: General: Skin is warm and dry. Findings: No rash. Neurological: Mental Status: She is alert. Assessment and Plan ASSESSMENT/PLAN: 1. Sore throat - ICD9: 462, ICD10: J02.9 (primary diagnosis) - Alere Strep Test neg, no culture pending - STREP A MOLECULAR (POC) - COVID WITH FLUA+B, ROUTINE 2. Viral URI - ICD9: 465.9, ICD10: J06.9 - Discussed viral etiology and rationale for treatment. - Symptomatic treatment with prn analgesia - Supportive care with fluids and rest -Chest x-ray is clear. Given prednisone and Bromfed. Recommended using albuterol inhaler as needed.Follow-up with PCP if not improving. COVID test pending as well. - XR CHEST 2V FRONTAL/LAT Ariana Randhawa PA-C documented [facility]12[facility] History of Present illness Narrative* Adriana Porter APRN.[facility] - 08/29/2022 11:32 AM EST Subjective The history is provided by the patient. No assistant speech language pathologist was used. LUIS Tyson is a 17 year old female who presents today for CC of sore throat, nasal congestion, runny nose and cough for 2 days. She denies fever, chills body aches, nausea, vomiting or diarrhea. She has used tylenol with short term relief. No known exposure to viral illness. No chronic lung disease. BP 118/76 Pulse 80 Temp 36.7 C (98.1 F) (Tympanic) Resp 16 Wt 63.9 kg (140 lb 12.8 oz) LMP 08/07/2022 Social History Tobacco Use Smoking status: Never Smokeless tobacco: Never Substance Use Topics Alcohol use: Never Drug use: Never No past medical history on file. I have confirmed and edited as necessary, the [facility] Review of Systems Constitutional: Negative for chills, fever and malaise/fatigue. HENT: Positive for congestion and sinus pain. Negative for ear pain and sore throat. Respiratory: Positive for cough. Negative for sputum production, shortness of breath and wheezing. Cardiovascular: Negative for chest pain. Gastrointestinal: Negative for abdominal pain, diarrhea, nausea and vomiting. Musculoskeletal: Negative for myalgias. Neurological: Positive for headaches. Objective Physical Exam Vitals and nursing note reviewed. HENT: Head: Normocephalic and atraumatic. Right Ear: Tympanic membrane, ear canal and external ear normal. Left Ear: Tympanic membrane, ear canal and external ear normal. Nose: Mucosal edema, congestion and rhinorrhea present. Right Sinus: No maxillary sinus tenderness or frontal sinus tenderness. Left Sinus: No maxillary sinus tenderness or frontal sinus tenderness. Mouth/Throat: Pharynx: Uvula midline. Posterior oropharyngeal erythema (mild) present. No oropharyngeal exudate. Cardiovascular: Rate and Rhythm: Normal rate and regular rhythm. Heart sounds: Normal heart sounds. Pulmonary: Effort: Pulmonary effort is normal. Breath sounds: Normal breath sounds. Lymphadenopathy: Head: Right side of head: No submental, submandibular or tonsillar adenopathy. Left side of head: No submental, submandibular or tonsillar adenopathy. Cervical: No cervical adenopathy. Skin: General: Skin is warm and dry. Neurological: Mental Status: She is alert. Psychiatric: Mood and Affect: Affect normal. ASSESSMENT/PLAN: 1. Sore throat - ICD9: 462, ICD10: J02.9 (primary diagnosis) - suspect viral - Alere Strep Test NEGATIVE, no culture pending - Discussed supportive care treatment with fluids, rest and analgesia. - The patient may also use warm salt water gargles, throat lozenges and/or OTC throat spray as needed. - STREP A MOLECULAR (POC) - COVID WITH FLUA+B, ROUTINE 2. URI with cough and congestion - ICD9: 465.9, ICD10: J06.9 - Discussed viral etiology and rationale for treatment. - Symptomatic treatment with prn analgesia - Supportive care with fluids and rest Home isolation Testing ordered Comfort measures discussed - see patient instructions. When to seek higher level of care Notified in 12-24 hours with results, available on [facility] - COVID WITH FLUA+B, ROUTINE Diagnosis and treatment plan were discussed and questions were answered to the patient's satisfaction. Pt acknowledged understanding of concepts and follow up plan. Specific signs and symptoms that would indicate the need for higher level of care were discussed indetail warranting prompt ER evaluation. Adriana Porter APRN.CORY documented in this encounterPe[facility]09-23-[facility]22 History of Present illness Narrative* Carmita Whitman APRN.CNP - 05/26/2022 5:18 PM EDT Subjective HPI Hugo Tyson is a 17 year old female who presents with congestion, rhinorrhea, cough, and SOB x 7 days. States that her symptoms have been getting worse. Endorses a fever this morning of 101F. Pt does have a history of asthma and has an albuterol inhaler, however she has not been using itbecause she states that it does not help. Denies being around other sick persons. Has tried dayquiland nyquil at home with some relief. Review of Systems Constitutional: Positive for chills and fever. HENT: Positive for congestion. Negative for ear pain and sore throat. Eyes: Negative for discharge and redness. Respiratory: Positive for cough and shortness of breath. Negative for sputum production and wheezing. Gastrointestinal: Negative for abdominal pain, constipation, diarrhea, nausea and vomiting. Skin: Negative for rash. Neurological: Negative for headaches. BP 110/82 Pulse 78 Temp 36.8 C (98.2 F) Resp 18 Wt 60.6 kg (133 lb 9.6 oz) LMP 10/22/2021 SpO2 99% No past medical history on file. No past surgical history on file. ALLERGIES Patient has no known allergies. MEDICATIONS norgestimate 0.25 mg-ethinyl estradiol 35 mcg (SPRINTEC) 0.25-35 mg-mcg per tablet Take 1 tablet bymouth once daily. predniSONE (DELTASONE) 20 mg tablet Take 2 tablets by mouth once daily for 4 days. Take daily with food. [START ON 05/29/2022] amoxicillin-clavulanic acid (AUGMENTIN) 875-125 mg per tablet Take 1 tablet bymouth twice daily for 10 days. Zmhloqysmuktjya-Xqcohqcky-MI (BROMFED DM) 2-30-10 mg/5 mL syrup Take 10 mL by mouth four times daily as needed. (Patient not taking: Reported on 03/18/2022 ) fluticasone (FLONASE) 50 mcg/actuation nasal spray Use 2 Sprays in each nostril once daily. Rinse mouth after use. (Patient not taking: Reported on 03/18/2022 ) No family history on file. Social History Tobacco Use Smoking status: Never Smokeless tobacco: Never Objective Physical Exam Vitals and nursing note reviewed. Constitutional: Appearance: Normal appearance. HENT: Head: Normocephalic. Right Ear: Tympanic membrane and ear canal normal. Left Ear: Tympanic membrane and ear canal normal. Nose: Congestion present. Mouth/Throat: Tonsils: No tonsillar exudate or tonsillar abscesses. 2+ on the right. 2+ on the left. Eyes: Conjunctiva/sclera: Conjunctivae normal. Pupils: Pupils are equal, round, and reactive to light. Cardiovascular: Rate and Rhythm: Normal rate and regular rhythm. Pulmonary: Effort: Pulmonary effort is normal. Breath sounds: Normal breath sounds. No wheezing. Abdominal: Palpations: Abdomen is soft. Skin: General: Skin is warm and dry. Neurological: Mental Status: She is alert. ASSESSMENT/PLAN: 1. Suspected COVID-19 virus infection - ICD9: V01.79, ICD10: Z20.822 (primary diagnosis) - COVID WITH FLUA+B, ROUTINE - Supportive care as provided in education 2. Sore throat - ICD9: 462, ICD10: J02.9 - Strep negative in the office today - STREP A MOLECULAR (POC) 3. SOB (shortness of breath) - ICD9: 786.05, ICD10: R06.02 - PREDNISONE 20 MG TABLET - Use albuterol as directed 4. Lower resp. tract infection - ICD9: 519.8, ICD10: J22 - AMOXICILLIN 875 MG-POTASSIUM CLAVULANATE 125 MG TABLET if symptoms not improving on 05/29/2022 Leeann Kelley APRN Student TEACHING PROVIDER (Physician/PA/STRETCH MACHINE OPERATOR) NOTE OF PERSONAL INVOLVEMENT IN CARE: I have personally seen and examined the patient and performed the medical decision-making components. I have reviewed the Advanced Practice Registered Nurse (STRETCH MACHINE OPERATOR) Student's documentation and verified the findings in the note as written. Any additions or changes are noted in bold/italics. Signature: Carmita Whitman Date: 05/26/2022 Time: 5:42 PM documented in this encounterPe[facility]09-23-2022 Instructions*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 10/31/22 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 Relationship Specialty Start Date End Date Chip Sloan [address] [place] [address] PCP - General Pediatrics 10/31/22 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 Relationship Specialty Start Date End Date Chip Sloan [address] [place] [address] PCP - General Pediatrics 10/31/22 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 Relationship Specialty Start Date End Date Chip Sloan [address] [place] [address] PCP - General Pediatrics 10/31/22 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 Relationship Specialty Start Date End Date Chip Sloan [address] [place] [address] PCP - General Pediatrics 10/31/22 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 Relationship Specialty Start Date End Date Chip Sloan [address] [place] [address] PCP - General Pediatrics 10/31/22 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 Relationship Specialty Start Date End Date Chip Sloan [address] [place] [address] PCP - General Pediatrics 10/31/22 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 Relationship Specialty Start Date End Date Chip Sloan [address] [place] [address] PCP - General Pediatrics 10/31/22 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 Relationship Specialty Start Date End Date Chip Sloan [address] [place] [address] PCP - General Pediatrics 10/31/22 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 Relationship Specialty Start Date End Date Chip Sloan [address] [place] [address] PCP - General Pediatrics 10/31/22 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 Relationship Specialty Start Date End Date Chip Sloan [address] [place] [address] PCP - General Pediatrics 10/31/22 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 Relationship Specialty Start Date End Date Chip Sloan [address] [place] [address] PCP - General Pediatrics 10/31/22 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 Relationship Specialty Start Date End Date Chip Sloan [address] [place] [address] PCP - General Pediatrics 10/31/22 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 Relationship Specialty Start Date End Date Chip Sloan [address] [place] [address] PCP - General Pediatrics 10/31/22 Team Status: Active Member Role Status Dates Dr. Francoise Johnson MD Primary Care Provider Active Team Status: Inactive Member Role Status Dates Dr. Sabine Pang DO Primary Care Provider Active Start: October 23, 2024 End: October 23, 2024 Dr. Sabine Pang DO Referring Provider Active Start: October 23, 2024 End: October 23, 2024 Miguelangel JEWELL PA Attending Provider Active St art: October 23, 2024 End: October 23, 2024 Team Status: Inactive Member Role Status Dates Dr. Francoise Johnson MD Primary Care Provider Active Start: October 23, 2024 End: October 23, 2024 Miguelangel JEWELL PA Attending Provider Active St art: October 23, 2024 End: October 23, 2024 Miguelangel JEWELL PA Referring Provider Active St art: October 23, 2024 End: October 23, 2024 Team Status: Inactive Member Role Status Dates Dr. Francoise Johnson MD Primary Care Provider Active Start: November 03, 2024 End: November 03, 2024 Miguelangel JEWELL PA Attending Provider Active St art: November 03, 2024 End: November 03, 2024 Miguelangel JEWELL PA Referring Provider Active St art: November 03, 2024 End: November 03, 2024 Team Status: Active Member Role Status Dates Dr. Francoise Johnson MD Primary Care Provider Active Start: November 03, 2024 Dr. Shy Mahajan MD Attending Provider Active Start: November 03, 2024 Miguelangel JEWELL PA Referring Provider Active St art: November 03, 2024 Team Status: Inactive Member Role Status Dates Dr. Francoise Johnson MD Primary Care Provider Active Start: December 03, 2024 End: December 03, 2024 Dr. Francoise Johnson MD Referring Provider Active Start: December 03, 2024 End: December 03, 2024 Miguelangel JEWELL PA Attending Provider Active St art: December 03, 2024 End: December 03, 2024 Team Status: Inactive Member Role Status Dates Dr. Francoise Johnson MD Primary Care Provider Active Start: January 29, 2025 End: January 29, 2025 Dr. Mroris Vu , Emergency Provider Active Start: January 29, 2025 End: January 29, 2025 Team Status: Active Member Role/Relationship Status Dates Dr. Francoise Johnson MD Primary Care Provider Active Team Status: Inactive Member Role/Relationship Status Dates Dr. Francoise Johnson MD Primary Care Provider Active Start: December 03, 2024 End: December 03, 2024 Dr. Francoise Johnson MD Referring Provider Active Start: December 03, 2024 End: December 03, 2024 Miguelangel JEWELL PA Attending Provider Active St art: December 03, 2024 End: December 03, 2024 Team Status: Inactive Member Role/Relationship Status Dates Dr. Francoise Johnson MD Primary Care Provider Active Start: January 29, 2025 End: January 29, 2025 Dr. Morris Vu DO Attending Provider Active Start: January 29, 2025 End: January 29, 2025 Dr. Morris Vu DO Emergency Provider Active Start: January 29, 2025 End: January 29, 2025 Team Status: Inactive Member Role/Relationship Status Dates Dr. Francoise Johnson MD Primary Care Provider Active Start: March 25, 2025 End: March 25, 2025 Dr. Francoise Johnson MD Referring Provider Active Start: March 25, 2025 End: March 25, 2025 Hola JEWELL, PA Attending Provider Active Start: March 25, 2025 End: March 25, 2025 Team Status: Inactive Member Role/Relationship Status Dates Dr. Francoise Johnson MD Primary Care Provider Active Start: January 29, 2025 End: January 29, 2025 Dr. Morris Vu DO Attending Provider Active Start: January 29, 2025 End: January 29, 2025 Dr. Morris Vu DO Emergency Provider Active Start: January 29, 2025 End: January 29, 2025 Team Status: Inactive Member Role/Relationship Status Dates Dr. Francoise Johnson MD Primary Care Provider Active Start: March 25, 2025 End: March 25, 2025 Dr. Francoise Johnson MD Referring Provider Active Start: March 25, 2025 End: March 25, 2025 Hola JEWELL PA Attending Provider Active Start: March 25, 2025 End: March 25, 2025 Team Status: Inactive Member Role/Relationship Status Dates Dr. Francoise Johnson MD Primary Care Provider Active Start: April 16, 2025 End: April 16, 2025 Dr. Francoise Johnson MD Referring Provider Active Start: April 16, 2025 End: April 16, 2025 [place] Attending Provider Active Sta rt: April 16, 2025 End: April 16, 2025 Team Status: Inactive Member Role/Relationship Status Dates Dr. Francoise Johnson MD Primary Care Provider Active Start: April 16, 2025 End: April 16, 2025 [place] Attending Provider Active Sta rt: April 16, 2025 End: April 16, 2025 INFORMATION SOURCE (unrecogn ized section and content) DATE CREATED AUTHOR 12/23/2022 [facility] DATE CREATED AUTHOR AUTHOR'S ORGANIZ ATION 11/04/2024 [facility] DATE CREATED AUTHOR AUTHOR'S ORGANIZ ATION 05/25/2025 [facility] Goals (unrecognized section and content) Goals may be documented in a n alternate sectionGoals may be documented in an alternate sectionGoals may be documented in an alternate sectionGoals may be documented in an alternate sectionGoals may be documented in an alternate sectionGoals may be documented in an alternate sectionGoals may be documented in an alternate section FOR RECORDS PERTAINING TO PATIENTS WHO ARE OR HAVE BEEN ENROLLED IN A CHEMICAL DEPENDENCY/SUBSTANCEABUSE PROGRAM, SOME INFORMATION MAY BE OMITTED. This clinical summary was aggregated from multiple sources. Caution should be exercised in using it in the provision of clinical care. This summary normalizes information from multiple sources, and as a consequence, information in this document may materially change the coding, format and clinical context of patient data. In addition, data may be omitted in some cases. CLINICAL DECISIONS SHOULD BE BASED ON THE PRIMARY CLINICAL RECORDS. [facility]. provides no warranty or guarantee of the accuracy or completeness of information in this document.
[2025-08-02 19:45] VITALS: BP 147/81; PULSE 82; RESP 14; TEMP 36.1; O2SAT 98
== END 2025-08-02 19:45 | disposition home or self-care (01) ==
PROVIDERS: Emergency Provider Emergency Medicine; PCP Internal Medicine; Visit Provider Emergency Medicine
DX: H10.31 Unspecified acute conjunctivitis, right eye (principal); Z87.891 Personal history of nicotine dependence
CPT/HCPCS: 99283